=== PATIENT | female | born 2000 | race Caucasian/White ===

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

== ENCOUNTER 2023-05-08 13:18 | Emergency (ER) | payer MEDICAID, SELFPAY ==
[2023-05-08 13:19] VITALS: BP 129/79; PULSE 64; RESP 18; TEMP 35.1; O2SAT 99
[2023-05-08 13:58] VITALS: BMI 33.9
--- NOTE | 2023-05-08 14:35 | US_ITS ---
STUDY: FIRST TRIMESTER OBSTETRICAL ULTRASOUND REASON FOR EXAM: Female, 22 years old spotting, 7-8 weeks by history LMP: 03/15/2023 TECHNIQUE: Transvaginal TECHNICAL QUALITY: Adequate. PRIOR ULTRASOUND: None. FINDINGS: There is visualization of a single gestational sac in a normal intrauterine position. The mean sac diameter (MSD) measures 0.9 cm, indicating an estimated gestational age (EGA) of 5 weeks, 5 days. The gestational sac shape is within normal limits. There is a visualized yolk sac. The yolk sac measures 3 mm. The placenta is non-visualized. There is no demonstrated embryo ( pole). The estimated gestation age (EGA) by LMP is 7 weeks, 5 days. The estimated date of delivery (MORTEZA) by LMP is 12/20/2023. The estimated gestation age (EGA) by US is 5 weeks, 5 days. The estimated date of delivery (MORTEZA) by US is 01/23/2024. The uterus measures 8.7 x 5.4 x 4.4 cm. There is no demonstrated uterine fibroid. The cervix is closed. The right ovary measures 2.6 x 2.3 x 3.3 cm. There is no right ovarian cyst. There is no visualized right adnexal mass or complex lesion. The left ovary measures 1.4 x 2.1 x 2.9 cm. There is no left ovarian cyst. There is no visualized left adnexal mass or complex lesion. There is no fluid in the cul de sac. US/Transvaginal w/Preg US IMPRESSION: Findings consistent with very early intrauterine gestation or blighted ovum. Viability is not established. Suggest short interval follow-up. Electronically Signed: Hawk Ambrocio MD at 17:22 EDT ,
--- NOTE | 2023-05-08 14:37 | EDS_ITS ---
HPI HPI - Female History of Present Illness Chief Complaint: Vag Bld, Preg Informant: patient Narrative Narrative: Patient presents with vaginal bleeding. Patient is G2, P1 female estimated 7 to 8 weeks with last menstrual cycle somewhere in the last 10 days or 2 weeks of February. She had spotting yesterday morning. This morning she had intercourse. She had slightly heavier spotting afterwards. She states she had a slightly pink blood on a tissue. No gross bleeding or clots. No cramping or pain. No back pain. No nausea vomiting. No fevers chills. No dysuria. She is currently on no meds including no anticoagulation. Of note, I reviewed her online medical record and she had an blood type that was O+ on July 05, 2020. [facility] Medical History Accidental fall from building ADHD Anxiety History of pancreatitis MRSA (methicillin resistant Staphylococcus aureus) Umbilical hernia Vaginal delivery Allergy/AdvReac Type Severity Reaction Status Date / Time No Known Allergies Allergy Verified 10/25/21 10:40 Social History current occupational status: employed current occupation: [employer] pets and animals: Yes sexually active: Yes Smoking Status: Never smoker second hand exposure: Yes alcohol intake: current details: not while substance use type: marijuana seatbelt use: sometimes additional social history: Aria [employer]OTE unemployed ([facility]) ROS ROS ED ROS Narrative A complete review of systems was performed and is negative except as documented in the history of present illness. Some specific details below. Constitutional: No recent fevers or chills. EYE: No visual complaints or pain. ENT: No difficulty swallowing. No swelling. No pain. CV: No chest pain or palpitations. Respiratory: No dyspnea. No hemoptysis. No difficulty taking breaths. GI: No nausea vomiting diarrhea or change in bowel habits. : See history of present illness. No frequency dysuria or hematuria. Musculoskeletal: No recent trauma. No pains. Skin: No rash. Nondiaphoretic. Neuro: No weakness or numbness. Endocrine: No polyuria or polydipsia. EXAM Physical Exam Narrative Exam Narrative: CONSTITUTIONAL: Patient is nontoxic in appearance. The patient looks comfortable. HEENT: No notable trauma. Mucous membranes moist. EYES: No conjunctival injection. No pallor. CARDIOVASCULAR: Regular rate. Regular rhythm. No notable murmur. No JVD. RESPIRATORY: No respiratory distress. Breathing is unlabored. No wheezes. No rhonchi. No rales. No pain with a deep breath. GASTROINTESTINAL: Not distended. Bowel sounds are normal. No tenderness. No guarding. No rebound. No palpable mass. GENITOURINARY: No tenderness over the bladder. No CVA tenderness. She states the bleeding is not going on now. MUSCULOSKELETAL: Atraumatic. No peripheral edema. No cord. No tenderness along the deep venous system. No asymmetry. NEUROLOGICAL: Patient is alert and appropriate. No focal deficit noted. SKIN: No noted rashes. No diaphoresis. No pallor. No petechiae. PSYCHIATRIC: Patient is calm. Mood is appropriate. Const Vital Signs: 05/08/23 13:19 Temperature 95.2 F L Temperature Source Temporal Pulse Rate 64 Respiratory Rate 18 Blood Pressure 129/79 H Blood Pressure Mean 95 Pulse Ox 99 Oxygen Delivery Method Room Air MDM MDM MDM Narrative Medical decision making narrative: Patient CBC shows minimal elevation of white count at 12.1 but normal hemoglobin and platelets. Patient's electrolytes are normal. Patient's quantitative hCG is 3918. Patient's urinalysis shows no sign of infection. I did not repeat her blood type as we have this as previously reported on this chart. I discussed the ultrasound with the tech. We are having problems with our radiology system and at this time. But the tech stated that there is a intrauterine sac but there is no pole so this is either a very early gestation or could be blighted ovum. I explained the above issues to the patient. She is not having further bleeding. She has an appointment on 16 days. I explained she should keep this. If she has pain, heavier bleeding, lightheadedness or any other concerns she should return. Lab Data Labs: Laboratory Results - last 24 hr 05/08/23 05/08/23 05/08/23 14:41 14:41 14:41 WBC 12.1 H RBC 4.61 Hgb 12.9 Hct 40.1 MCV 87.0 MCH 28.0 MCHC 32.2 RDW Std Deviation 41.8 RDW Coeff of Omar 13.2 Plt Count 396 MPV 9.7 Immature Gran % (Auto) 0.300 Neut % (Auto) 70.2 H Lymph % (Auto) 19.3 [place] % (Auto) 8.8 Eos % (Auto) 1.0 Baso % (Auto) 0.4 Absolute Neuts (auto) 8.5 H Absolute Lymphs (auto) 2.33 Nucleated RBC % 0 Sodium 138 Potassium 3.9 Chloride 110 H Carbon Dioxide 23.0 Anion Gap 5 BUN 7 Creatinine 0.57 Estim Creat Clear Calc 147.38 Est GFR (MDRD) Af Amer 174 Est GFR (MDRD) Non-Af 144 BUN/Creatinine Ratio 12.4 Glucose 90 Calcium 9.0 HCG, Quant 3918 H Urine Color Urine Clarity Urine pH Ur Specific [place] Urine Protein Urine Glucose (UA) Urine Ketones Urine Occult Blood Urine Nitrite Urine Bilirubin Urine Urobilinogen Ur Leukocyte Esterase Urine RBC Urine WBC Ur Squamous Epith Cells Urine Bacteria Urine Mucus 05/08/23 14:41 WBC RBC Hgb Hct MCV MCH MCHC RDW Std Deviation RDW Coeff of Omar Plt Count MPV Immature Gran % (Auto) Neut % (Auto) Lymph % (Auto) [place] % (Auto) Eos % (Auto) Baso % (Auto) Absolute Neuts (auto) Absolute Lymphs (auto) Nucleated RBC % Sodium Potassium Chloride Carbon Dioxide Anion Gap BUN Creatinine Estim Creat Clear Calc Est GFR (MDRD) Af Amer Est GFR (MDRD) Non-Af BUN/Creatinine Ratio Glucose Calcium HCG, Quant Urine Color Yellow Urine Clarity Clear Urine pH 7.0 Ur Specific [place] 1.010 Urine Protein 15 H Urine Glucose (UA) Normal Urine Ketones Negative Urine Occult Blood 50 H Urine Nitrite Negative Urine Bilirubin Negative Urine Urobilinogen Normal Ur Leukocyte Esterase Negative Urine RBC 0-5 SEEN Urine WBC 0 SEEN Ur Squamous Epith Cells 0-5 SEEN Urine Bacteria RARE Urine Mucus 0 SEEN Discharge Plan Triage Chief Complaint: Vag Bld, Preg ED Provider: Norris Fernandez Dx/Rx/DC Orders Clinical Impression: First trimester bleeding Primary Care Provider: Care Physician,No Primary Referrals: Avni Stoll MD [Non-Staff] - Activity Restrictions/Additional Instructions: Follow-up with your hoe runner as scheduled on the of this month. Disposition Disposition: Home, Self Care
[2023-05-08 14:55] LABS: Mucous, Urine 0 SEEN /hpf (<or=2+); White Blood Cells 0 SEEN /hpf (0-5)
[2023-05-08 14:57] LABS: Color, Urine Yellow (Yellow); Glucose, Dipstick Normal (Normal); Ketone-Dipstick Negative (Negative); Leukocyte Esterase-Dipstick Negative /ul (Negative); Nitrite-Dipstick Negative (Negative); Occult Blood-Urine 50 /ul (Negative); Protein-Dipstick 15 mg/dl (Negative); Urine Bilirubin Dipstick Negative (Negative); Urine Clarity Clear (Clear); Urine Urobilinogen Normal (Normal)
[2023-05-08 14:58] LABS: Absolute Lymphocyte Count 2.33 X10^3/uL (0.83-4.51); Absolute Neutrophil Count 8.5 X10^3/uL (2.0-7.7); Basophil# 0.05 X10^3/uL; Basophil% 0.4 % (0-1); Eosinophil# 0.12 X10^3/uL; Hematocrit 40.1 % (37-47); Hemoglobin 12.9 g/dL (12.0-15.0); Lymphocyte # 2.33 X10^3/ul (0.83-4.51); Lymphocyte % 19.3 % (19-41); Mean Corp Hgb Conc 32.2 g/dL (32-36); Mean Platelet Vol. 9.7 fl (6.2-12.0); Monocyte# 1.06 X10^3/uL; Monocyte% 8.8 % (0-10); NRBC Flagged by Analyzer 0 % (0-5); Neutrophil % 70.2 % (47-70); Platelet Count 396 K/mm3 (150-450); RBC Distribution Width CV 13.2 % (11.6-14.6); RBC Distribution Width SD 41.8 fl (35.1-43.9); Red Blood Count 4.61 M/mm3 (4.2-5.4); White Blood Count 12.1 K/mm3 (4.4-11.0)
[2023-05-08 15:04] LABS: Bacteria RARE /hpf (None Seen); Red Blood Cells-Urine 0-5 SEEN /hpf (0-5); Squamous Epithelial Cells - UA 0-5 SEEN /hpf (5-10)
[2023-05-08 15:09] LABS: Anion Gap 5 (5-15); BUN 7 mg/dL (7-18); BUN/Creat Ratio 12.4 RATIO (10-20); Chloride 110 mmol/L (98-107); Creatinine, Serum 0.57 mg/dL (0.55-1.02); EST Glomerular Filtration Rate 144 mL/min (>60); Est Glom Filt Rate - Afr Amer 174 mL/min (>60); Estimated Creatinine Clearance 147.38 ml/min; Glucose 90 mg/dL (74-106); Potassium 3.9 mmol/L (3.5-5.1); Sodium Level 138 mmol/L (136-145)
[2023-05-08 15:40] LABS: hCG Titer Quant., Serum 3918 mIU/mL (1-3)
== END 2023-05-08 17:09 | disposition home or self-care (01) ==
PROVIDERS: Emergency Provider Emergency Medicine; Visit Provider Emergency Medicine
DX: O20.9 Hemorrhage in early pregnancy, unspecified (principal); Z3A.00 Weeks of gestation of pregnancy not specified
CPT/HCPCS: 76817; 80048; 81001; 84702; 85025; 99282

== ENCOUNTER → 2023-05-21 | Outpatient (CLI) | payer MEDICAID, SELFPAY ==
--- NOTE | 2023-05-21 18:20 | US_ITS ---
STUDY: FIRST TRIMESTER OBSTETRICAL ULTRASOUND REASON FOR EXAM: Female, 22 years old. Bleeding. Threatened . LMP: March 15, 2023. TECHNIQUE: Transvaginal TECHNICAL QUALITY: Adequate. PRIOR ULTRASOUND: May 08, 2023. FINDINGS: There is visualization of a single gestational sac in a normal intrauterine position. The mean sac diameter (MSD) measures 2.52 cm, indicating an estimated gestational age (EGA) of 7 weeks, 4 days. The gestational sac shape is within normal limits. There is a visualized yolk sac. The yolk sac measures 0.48 cm. The placenta is non-visualized. There is visualization of an embryo within the gestational sac.. The crown-rump length (CRL) measures 0.79, indicating an estimated gestational age (EGA) of 6 weeks, 6 days. There is no demonstrated cardiac activity, suggestive of demise The estimated gestation age (EGA) by LMP is 9 weeks, 4 days. The estimated date of delivery (MORTEZA) by LMP is December 20, 2023. The estimated gestation age (EGA) by US is 7 weeks, 2 days. The estimated date of delivery (MORTEZA) by US is January 05, 2024. The uterus measures 10.6 x 7.5 x 5.2 cm. There is a heterogenous area below the gestational sac measuring 2.9 x 2.9 x 1.5 cm. Question subchorionic hemorrhage. There is no demonstrated uterine fibroid. The cervix is closed. The right ovary measures 3.3 x 1.7 x 1.3 cm. There is no right ovarian cyst. There is no visualized right adnexal mass or complex lesion. Normal vascularity on Doppler imaging. The left ovary measures 3.2 x 2.2 x 2.1 cm. There is a 1.3 x 1.8 x 1.1 cm complex cyst. There is no visualized left adnexal mass or complex lesion. Normal vascularity and Doppler imaging. There is no fluid in the cul de sac. US/Transvaginal w/Preg US IMPRESSION: 1. Findings suggestive of demise at 7 weeks, 2 days. There is no evidence of heart tones. 2. Subchorionic hemorrhage in the lower uterine segment. 3. Question left corpus luteum cyst. Preliminary report was given to Ro Girard CNM by the hull grinder. Electronically Signed: Sylvester Sanderson DO at 19:29 EDT Reading Location ID and State: [facility] / [place] Tel [phone], Service support ,
== END | disposition home or self-care (01) ==
LOC: US 18:20
PROVIDERS: Visit Provider Registered Nurse
DX: O20.0 Threatened abortion (principal); Z3A.00 Weeks of gestation of pregnancy not specified
CPT/HCPCS: 76817

== ENCOUNTER 2023-05-25 07:42 | Day surgery (SDC) | payer MEDICAID, SELFPAY ==
--- NOTE | 2023-05-25 | POC_PTH ---
PATIENT: ANDRIY BURR [place] [facility] [id number] AGE/SX: 22/F ROOM: RE05/25/[address]: Dr. Luci Arreguin MD : 2000 BED: DIS: 05/25/2023 SPEC #: [id number] RECD: 05/25/23 12:20 STATUS: JULIO REMariano #: [id number] JAMAL: 05/25/23 00:[address]: Luci Arreguin DEPT: SURGICAL PATHOLOGY RECD BY: uLkas Schulz ENTERED: 05/25/23 12:20 SP TYPE: PROD CONC OTHR DR: No Primary Care Phys Tissues: Product of conception, NOS Procedures: Surgery Specimen Level IV HEADER OPERATION: Suction dilation and curettage PRE-OP DIAGNOSIS: Missed TISSUE SUBMITTED: Products of conception MICROSCOPIC DIAGNOSIS Endometrium, curettage: Chorionic villi, decidualized stroma and trophoblastic cells consistent with products of conception. AM:greg 05/28/2023 MICROSCOPIC DESCRIPTION Slides are reviewed. GROSS DESCRIPTION Received in fixative is one container labeled with the patient's name and designated products of conception. The specimen consists of multiple irregular fragments of pink-pruett soft tissue that in aggregate measure 10.9 x 8.0 x 0.6 cm. parts are not grossly recognized. Inside Account Executive portions are submitted in one cassette. / AM:greg 05/25/2023 TC:5 CPT: 62897
[2023-05-25] MEDS: Lactated Ringers 1,000 ML 15 ML IV (08:24)
[2023-05-25 08:25] VITALS: BP 126/77; PULSE 73; RESP 18; TEMP 36.7; O2SAT 100; BMI 34.0
[2023-05-25] MEDS: Doxycycline 100 MG CAPSULE PO (08:25)
[2023-05-25 08:30] LABS: Absolute Lymphocyte Count 2.35 X10^3/uL (0.83-4.51); Absolute Neutrophil Count 10.4 X10^3/uL (2.0-7.7); Basophil# 0.04 X10^3/uL; Basophil% 0.3 % (0-1); Eosinophil# 0.13 X10^3/uL; Eosinophils% 0.9 % (0-5); Hemoglobin 12.2 g/dL (12.0-15.0); Lymphocyte # 2.35 X10^3/ul (0.83-4.51); Lymphocyte % 16.8 % (19-41); Mean Corpuscular Volume 84.9 fL (81-99); Mean Platelet Vol. 9.5 fl (6.2-12.0); Monocyte# 0.99 X10^3/uL; Monocyte% 7.1 % (0-10); NRBC Flagged by Analyzer 0 % (0-5); Neutrophil # 10.41 X10^3/uL (2.7-7.7); Neutrophil % 74.5 % (47-70); Platelet Count 393 K/mm3 (150-450); RBC Distribution Width CV 13.2 % (11.6-14.6); RBC Distribution Width SD 40.5 fl (35.1-43.9); Red Blood Count 4.36 M/mm3 (4.2-5.4)
--- NOTE | 2023-05-25 09:59 | PCM.HP.STD ---
HPI - General HPI Narrative ANDRIY BURR, is a 22 F who presents for suction d and c with incomplete miscarriage, bleeding and no FHT seen x 2 ultrasound. [facility] Medical History (Updated 05/25/23 @ 10:[address] Luci Arreguin MD) Accidental fall from building ADHD Anxiety Broken teeth Depression History of pancreatitis Marijuana use MRSA (methicillin resistant Staphylococcus aureus) Non-smoker Umbilical hernia Vaginal delivery Home Medications NK 05/22/23 [History Last Taken Unknown] Allergy/AdvReac Type Severity Reaction Status Date / Time No Known Allergies Allergy Verified 05/23/23 08:16 Social History current occupational status: employed current occupation: [employer] pets and animals: Yes sexually active: Yes Smoking Status: Never smoker second hand exposure: Yes alcohol intake: current details: not while substance use type: marijuana seatbelt use: sometimes additional social history: [place]- BF unemployed ([place]) ROS Constitutional Constitutional: Reports systems reviewed and no addt'l complaints, except as documented; Denies as per HPI, change in weight, fatigue, fever(s), malaise, weakness or other Eyes Eyes: Reports systems reviewed and no addt'l complaints, except as documented; Denies as per HPI, change in vision or other ENT HEENT: Reports systems reviewed and no addt'l complaints, except as documented Respiratory/Chest Respiratory/Chest: Reports systems reviewed and no addt'l complaints, except as documented Gastrointestinal Gastrointestinal: Reports systems reviewed and no addt'l complaints, except as documented and as per HPI Genitourinary Genitourinary: Reports as per HPI Musculoskeletal Musculoskeletal: Reports systems reviewed and no addt'l complaints, except as documented Neurologic Neurologic: Reports systems reviewed and no addt'l complaints, except as documented Psychiatric Psychiatric: Reports systems reviewed and no addt'l complaints, except as documented Endocrine Endocrinology: Reports systems reviewed and no addt'l complaints, except as documented Hematologic/Lymphatic Hematologic/Lymphatic: Reports systems reviewed and no addt'l complaints, except as documented Vital Signs Vital Signs Vital Signs: 05/25/23 08:25 05/25/23 08:25 Temperature 98.1 F Temperature Source Temporal Pulse Rate 73 Respiratory Rate 18 Respiratory Pattern Normal Blood Pressure 126/77 H Blood Pressure Mean 93 Blood Pressure Source Monitor Blood Pressure Position Semi-Fowlers Blood Pressure Location Right Arm Pulse Ox 100 Oxygen Delivery Method Room Air Weight Weight: 211 lb Body Mass Index (BMI) 34.0 Physical Exam Const alert, oriented x3 and no apparent distress HEENT normocephalic Head and Scalp: atraumatic Eyes EOMs intact bilaterally and conjunctivae normal Neck full ROM, no lymphadenopathy, supple and thyroid normal General: trachea midline Lymph Lymphatic: no lymphadenopathy noted Resp normal respiratory effort, no retractions, no use of accessory muscles and clear to auscultation bilaterally Cardio regular rhythm GI normal to inspection, nondistended, normoactive bowel sounds, soft to palpation, non-distended and no masses Inspection: Negative for abdominal distention Back/Spine no CVA tenderness Extremity normal to inspection Skin no rashes or lesions noted Neuro moves all extremities and deep tendon reflexes 2+ bilaterally Psych mental status grossly normal Results Lab / Micro Data 05/25/23 08:15 Labs: Laboratory Results - last 24 hr 05/25/23 08:15: WBC 14.0 H, RBC 4.36, Hgb 12.2, Hct 37.0, MCV 84.9, MCH 28.0, MCHC 33.0, RDW Std Deviation 40.5, RDW Coeff of Omar 13.2, Plt Count 393, MPV 9.5, Immature Gran % (Auto) 0.400, Neut % (Auto) 74.5 H, Lymph % (Auto) 16.8 L, [place] % (Auto) 7.1, Eos % (Auto) 0.9, Baso % (Auto) 0.3, Absolute Neuts (auto) 10.4 H, Absolute Lymphs (auto) 2.35, Nucleated RBC % 0, Blood Type O POSITIVE, Antibody Screen NEGATIVE Assessment & Plan Assessment/Plan (1) Incomplete : PLAN: Plan After discussing the patient's diagnosis and treatment plan options, patient wishes to proceed with surgical management. I have discussed with the patient the risks, benefits, and alternatives of the procedure which include but are not limited to risks of anesthesia, bleeding, infection, possible damage to bowel, bladder, or surrounding vasculature which could lead to additional surgery to evaluate any complications. Patient agrees to procedure and wishes to proceed. ACOG/uptodate references given for additional information regarding procedure.
--- NOTE | 2023-05-25 10:10 | OP.PCM_ITS ---
Problems Associated Problem List Diagnoses (1) Incomplete : Report of Operation Date of Procedure: 05/25/23 Pre-Operative Diagnosis: see problem list Post-Operative Diagnosis: same Surgery/Procedure Performed:: Suction dilation and curettage Description of Surgical Findings:: no FHT present, Nonviable 9 weeks measuring 6-7 weeks Surgeon: Luci Arreguin manager student services: None Type of Anesthesia: Local MAC Special Medications: none Specimen's removed: POC Drains: none Estimated Blood Loss (mL): 50 Fluids Replaced: crystalloid Description of Procedure: Patient was taken to the operating room and placed under MAC local anesthesia. She was prepped and draped in the normal sterile fashion the dorsal lithotomy position. Bladder was drained of clear urine and anterior lip of the cervix was grasped and the uterus sounded to 10cm. Cervix was progressively dilated to allow passage of a 10mm suction curette. Progressive passes were made removing the retained products of conception without complication. Sharp curettage confirmed complete removal of the retained products. All instruments were removed from the vagina and excellent hemostasis was noted and the patient was taken to recovery in stable condition. Grafts/Implants Used: none Complications none Admit VTE Documentation VTE Present on Admission: No VTE Mechan Device Prophylaxis: SCD's Procedures Urinary/Genital [id number]: [id number] Trmt of incomplete Ab, any TM
--- NOTE | 2023-05-25 10:11 | DCINST_ITS ---
Discharge Instructions Procedure D&C Diet Discharge Diet: No restrictions Activity Discharge Activity: Return to Normal Activity, May Shower and May Take a Tub Bath (after 1 week) May resume sexual activity in: 1-2 weeks Weight Bearing Status: Weight bearing as tolerated Lifting Restrictions: none Dressing / Incision Call your doctor if you observe: Fever of 101 or Higher, Using more than 1 pad per hour, Shortness of breath and Uncontrolled pain Follow Up Care Please Follow Up With: Luci Arreguin MD When: Call [phone] to schedule appointment. Test Results: Test results from this visit will be discussed in further detail at your follow- up appointment, if applicable. Discharge Plan Admission Attending Provider: Luci Arreguin Primary Care Provider: Care Physician,No Primary Discharge Orders/Prescriptions Prescriptions: No Action NK Referrals / Follow Up: Care Physician,No Primary [Primary Care Provider] - Disposition Disposition (needs filled in before D/C Order can be placed): Home, Self Care
[2023-05-25] MEDS: Lidocaine 1% (20 ml mdv) 20 ML Vial (10:13)
[2023-05-25 10:34] VITALS: BP 120/65; BP 126/77; PULSE 58; RESP 20; TEMP 36.6; O2SAT 98
[2023-05-25 10:40] VITALS: BP 113/54; BP 126/77; PULSE 50; RESP 16; O2SAT 97
[2023-05-25 10:50] VITALS: BP 113/60; BP 126/77; PULSE 49; RESP 16; O2SAT 95
[2023-05-25 10:55] VITALS: BP 126/77; BP 95/75; PULSE 49; RESP 16; TEMP 36.4; O2SAT 99
[2023-05-25 12:08] VITALS: BP 119/54; BP 126/77; PULSE 60; RESP 16; TEMP 36.8; O2SAT 98
== END 2023-05-25 12:10 | disposition home or self-care (01) ==
LOC: SDC 07:44 → AC 07:44
PROVIDERS: Referring Provider Obstetrics & Gynecology; Visit Provider Obstetrics & Gynecology
PROC: (CPT 59812; principal; 2023-05-25 09:05)
DX: O03.4 Incomplete spontaneous abortion without complication (principal); O99.321 Drug use complicating pregnancy, first trimester; F12.90 Cannabis use, unspecified, uncomplicated
CPT/HCPCS: 59812; 01965; 85025; 86850; 86900; 86901; 88305; J7120; J2405

== ENCOUNTER → 2023-06-11 | Outpatient (CLI) | payer MEDICAID, SELFPAY | END | disposition home or self-care (01) | LOC: LABSPEC 14:00 | PROVIDERS: Referring Provider Nurse Practitioner Women's Health; Visit Provider Nurse Practitioner Women's Health | DX: Z20.2 Contact with and (suspected) exposure to infections with a predominantly sexual mode of transmission (principal) | CPT/HCPCS: 87491; 87591 ==

== ENCOUNTER → 2023-12-19 | Outpatient (CLI) | payer MEDICAID, SELFPAY ==
--- OUTSIDE RECORDS SUMMARY | 2023-12-19 15:26 | XMS RPT_ITS | CCD ---
Author Name Unknown Address [address] [place] [address] Organization [facility] Care Team Providers Care Cardiology Rn Name Role Phone VIDHYA QUESADA Unavailable Unavailable CALVIN BARDALES Unavailable CALVIN BARDALES Primary Care UnavailCalvin Garcia MD Primary Care Provider Medications Current Medications Medication Drug Class(es) Dates Sig (Normalized) Sig (Original) amoxicillin 875 mg / clavulanate 125 mg oral tablet (1 source) Penicillin-class Antibacterial Start: 10-01-2023 End: 10-08-2023 take 1 tablet by mouth twice daily amoxicillin-clav ulanate potassium (AUGMENTIN) 875-125 mg per tablet Take 1 tablet by mouth two times a day for 7 days. 14 tablet 0 10/01/2023 10/08/2023 Active Completed/Discontinued Medications Medication Drug Class(es) Dates Sig (Normalized) Sig (Original) sulfamethoxazole 40 mg/ml / trimethoprim 8 mg/ml oral suspension (1 source) Dihydrofolate Reductase Inhibitor Antibacterial, Sulfonamide Antimicrobial Start: 06-07-2015 sulfamethoxazole -trimethoprim (BACTRIM,SEPTRA) 200-40 mg/5 mL suspension Take 4 tsp twice daily for 10 days 400 mL 0 06/07/2015 Active Problems Problem Classification Problem Date Documented Da te Episodic/Chronic Disorders of teeth and jaw (1 source) Infection of tooth; Translations: [Periapical abscess without sinus] 10-01-2023 Episodic Results Test Name Value Interpretation Reference Range Facil ity Vital Signs Date Time Vital Sign Value Performing Clinician Faci lity 10-01-2023 17:43-0500 Body temperature 97.9 [degF] Jayson Powers ACTIVITY COORDINATOR.MEDICAL BILLER Work Phone: [facility] 10-01-2023 17:43-0500 Body weight 91.54 kg Jayson Gio ACTIVITY COORDINATOR.MEDICAL BILLER Work Phone: [facility] 10-01-2023 17:43-0500 Diastolic blood pressure 72 mm[Hg] Jayson Gio ACTIVITY COORDINATOR.MEDICAL BILLER Work Phone: [facility] 10-01-2023 17:43-0500 Heart rate 92 /min Jayson Gio ACTIVITY COORDINATOR.MEDICAL BILLER Work Phone: [facility] 10-01-2023 17:43-0500 Respiratory rate 21 /min Jayson Pendleisa ACTIVITY COORDINATOR.MEDICAL BILLER Work Phone: [facility] 10-01-2023 17:43-0500 SaO2% (BldA) [Mass fraction] 99 % Jayson Powers ACTIVITY COORDINATOR.MEDICAL BILLER Work Phone: [facility] 10-01-2023 17:43-0500 Systolic blood pressure 110 mm[Hg] Jayson Gio ACTIVITY COORDINATOR.MEDICAL BILLER Work Phone: [facility] Encounters Encounter Date Encounter Type Care Provider Facility Start: 10-01-2023 End: 10-01-2023 ambulatory CALVIN GRAHAMCIALES Facility:[facility] Start: 10-01-2023 End: 10-01-2023 Office outpatient visit 25 minutes Jayson Powers ACTIVITY COORDINATOR.MEDICAL BILLER Work Phone: [facility] Plan of Treatment Date Care Activity Detail Author Start: 04-02-2030 Urine microalbumin profile DTa P,Tdap,Td Vaccine (10 - Td or Tdap) [facility] Start: 2023 Pap Testing Pap Testing [facility] Start: 07-27-2023 Influenza vaccination Influenza Vacc ine (#1) [facility] Start: 11-26-2022 Depression Assessment Depression Ass essment [facility] Start: 2020 Chlamydia Screening (18-24) Chlamydia Screening (18-24) [facility] Start: 2020 GC (Gonorrhea) Scree cesia (18-24) GC (Gonorrhea) Screening (18-24) [facility] Start: 2020 Hepatitis C Screening Hepatitis C Nile gonzalez [facility] Start: 2020 HIV Screening HIV Screening [facility] Start: 2018 Meningococcal B Vacc ine: Consider Based On Risk (1 of 2 - Patient Seeks Protection) Meningococcal B Vaccine: Consider Based On Risk (1 of 2 - Patient Seeks Protection) [facility] Start: 2016 Peds To Adult Transi tion Annual Assessment Peds To Adult Transition Annual Assessment [facility] Start: 01-26-2016 HPV Vaccine (2 - 2-d ose series) HPV Vaccine (2 - 2-dose series) [facility] Start: 2014 Peds To Adult Transi tion Initial Discussion Peds To Adult Transition Initial Discussion [facility] Start: 03-29-2003 Covid-19 Vaccine (#1) Covid-19 Vacci ne (#1) [facility] Immunizations Immunization Date Immunization Notes Care Provider Cande giron 08-07-2011 influenza virus vaccine, unspecified formulation Jayson Powers ACTIVITY COORDINATOR.MEDICAL BILLER Work Phone: [facility] Payers Date Payer Category Payer Medicaid [employer] [employer] [place] [employer] [id number] 2022-Present [phone] [address] [place] [address] Medicaid [id number] 2018 Unknown [id number] Social History Date Type Detail Facility Start: 10-01-2023 Tobacco smoking stat NHIS Never smoked tobacco [facility] History of tobacco use Passive smoker [facility] Start: 10-01-2023 Tobacco use and exposure Smoke less tobacco non-user [facility] Start: 10-01-2023 Alcohol intake Not Asked [facility] Start: 11-03-2020 End: 10-01-2023 History of Social function [facility] Start: 11-03-2020 End: 10-01-2023 Tobacco use panel [facility] National Score (1-10 0), lower number is lower risk Not on file [facility] Start: 2002 Sex Assigned At Not on file [facility] Progress note 10-01-2023 Note Date & Type Note Facility 10-01-2023 Note HNO ID: [id number] Author: Jayson Powers APRN.GRACIE Service: ? Author Type: Nurse Practitioner Type: Progress Notes Filed: 10/01/2023 6:15 PM Note Text: Subjective HPI Nontoxic-appearing female presents urgent care chief complaint dental pain. Duration of symptoms 2 days. Associated symptoms facial swelling redness. Does develop today. Presents today for evaluation. Concerned about possible dental infection. Use of Motrin for pain management good success. History of dental infections. Denies any facial trauma. Denies any fever body aches chills nausea vomiting abdominal pain headache cough sore throat difficulty and excretion decreased range of motion of neck or jaw trismus pain of floor mouth. Past medical history prescription medication use allergies reviewed. Denies chance of . .Patient presents with: Dental Problem: Possible infection left side of mouth, swollen face x 2 days History reviewed. No pertinent past medical history. History reviewed. No pertinent surgical history. ALLERGIES Patient has no known allergies. MEDICATIONS sulfamethoxazole-trimethoprim (BACTRIM,SEPTRA) 200-40 mg/5 mL suspension Take 4 tsp twice daily for 10 days (Patient not taking: Reported on 06/08/2018 ) History reviewed. No pertinent family history. Social History Tobacco Use Smoking status: Never Passive exposure: Yes Smokeless tobacco: Never BP 110/72 Pulse 92 Temp 36.6 ?C (97.9 ?F) Resp 21 Wt 91.5 kg (201 lb 12.8 oz) LMP 05/15/2018 (LMP Unknown) SpO2 99% Review of Systems Constitutional: Negative for chills, fever and malaise/fatigue. HENT: Negative for congestion, ear discharge, ear pain, sinus pain and sore throat. Eyes: Negative for blurred vision, pain, discharge and redness. Respiratory: Negative for cough, hemoptysis, sputum production, shortness of breath, wheezing and stridor. Cardiovascular: Negative for chest pain. Gastrointestinal: Negative for abdominal pain, diarrhea, nausea and vomiting. Musculoskeletal: Negative for myalgias. Skin: Negative for itching and rash. Neurological: Negative for dizziness and headaches. Objective Physical Exam Constitutional: General: She is not in acute distress. Appearance: She is not toxic-appearing. HENT: Head: Normocephalic. Jaw: Swelling present. No trismus, tenderness or pain on movement. Salivary Glands: Right salivary gland is not diffusely enlarged. Left salivary gland is not diffusely enlarged. Comments: Edema slight hue of erythema noted. No adenopathy noted. No decreased range of motion of neck. No trismus. No remote redness. Nose: Nose normal. Mouth/Throat: Lips: Levering. Dentition: Abnormal dentition. Dental tenderness and dental caries present. No dental abscesses. Pharynx: Uvula midline. No pharyngeal swelling, oropharyngeal exudate, posterior oropharyngeal erythema or uvula swelling. Eyes: Pupils: Pupils are equal, round, and reactive to light. Cardiovascular: Rate and Rhythm: Normal rate. Pulmonary: Effort: Pulmonary effort is normal. No respiratory distress. Musculoskeletal: Cervical back: Normal range of motion. Skin: General: Skin is warm and dry. Neurological: General: No focal deficit present. Mental Status: She is alert. ASSESSMENT/PLAN: 1. Dental infection - ICD9: 522.4, ICD10: K04.7 Patient nontoxic-appearing. Hemodynamically stable. No trismus pain of floor mouth decreased range of motion of neck difficulty handling secretions. No adenopathy noted. Mild erythema noted. Some swelling noted. Low suspicion for deep neck infection. Treat with Augmentin at today's visit. Red flags for prompt ER evaluation discussed. Follow-up with dentist on Sunday as scheduled. Patient was educated on supportive therapies. Patient will follow up with primary care provider as needed. Patient was instructed to immediately proceed to emergency room for any new, worsening, or symptoms lasting longer than anticipated. The patient's clinical presentation is otherwise unremarkable at this time. Based on exam and clinical finding, the patient is stable for discharge. Plan of care was discussed with patient. Patient verbalizes understanding and agrees to plan of care. This note was generated using Polyplus-transfection software. It may contain errors in wording, punctuation, or spelling. Jayson Powers APRN.GRACIE [facility] History of Present illness Narrative 10-01-2023 Jayson Powers APRN.GRACIE - 10/01/2023 5:46 PM EST Note Date & Type Note Facility 10-01-2023 History of Presen t illness Narrative Images from the original note were not included. Subjective HPI Nontoxic-appearing female presents urgent care chief complaint dental pain. Duration of symptoms 2 days. Associated symptoms facial swelling redness. Does develop today. Presents today for evaluation. Concerned about possible dental infection. Use of Motrin for pain management good success. History of dental infections. Denies any facial trauma. Denies any fever body aches chills nausea vomiting abdominal pain headache cough sore throat difficulty and excretion decreased range of motion of neck or jaw trismus pain of floor mouth. Past medical history prescription medication use allergies reviewed. Denies chance of . .Patient presents with: Dental Problem: Possible infection left side of mouth, swollen face x 2 days History reviewed. No pertinent past medical history. History reviewed. No pertinent surgical history. ALLERGIES Patient has no known allergies. MEDICATIONS sulfamethoxazole-trimethoprim (BACTRIM,SEPTRA) 200-40 mg/5 mL suspension Take 4 tsp twice daily for 10 days (Patient not taking: Reported on 06/08/2018 ) History reviewed. No pertinent family history. Social History Tobacco Use Smoking status: Never Passive exposure: Yes Smokeless tobacco: Never BP 110/72 Pulse 92 Temp 36.6 C (97.9 F) Resp 21 Wt 91.5 kg (201 lb 12.8 oz) LMP 05/15/2018 (LMP Unknown) SpO2 99% Review of Systems Constitutional: Negative for chills, fever and malaise/fatigue. HENT: Negative for congestion, ear discharge, ear pain, sinus pain and sore throat. Eyes: Negative for blurred vision, pain, discharge and redness. Respiratory: Negative for cough, hemoptysis, sputum production, shortness of breath, wheezing and stridor. Cardiovascular: Negative for chest pain. Gastrointestinal: Negative for abdominal pain, diarrhea, nausea and vomiting. Musculoskeletal: Negative for myalgias. Skin: Negative for itching and rash. Neurological: Negative for dizziness and headaches. Objective Physical Exam Constitutional: General: She is not in acute distress. Appearance: She is not toxic-appearing. HENT: Head: Normocephalic. Jaw: Swelling present. No trismus, tenderness or pain on movement. Salivary Glands: Right salivary gland is not diffusely enlarged. Left salivary gland is not diffusely enlarged. Comments: Edema slight hue of erythema noted. No adenopathy noted. No decreased range of motion of neck. No trismus. No remote redness. Nose: Nose normal. Mouth/Throat: Lips: Levering. Dentition: Abnormal dentition. Dental tenderness and dental caries present. No dental abscesses. Pharynx: Uvula midline. No pharyngeal swelling, oropharyngeal exudate, posterior oropharyngeal erythema or uvula swelling. Eyes: Pupils: Pupils are equal, round, and reactive to light. Cardiovascular: Rate and Rhythm: Normal rate. Pulmonary: Effort: Pulmonary effort is normal. No respiratory distress. Musculoskeletal: Cervical back: Normal range of motion. Skin: General: Skin is warm and dry. Neurological: General: No focal deficit present. Mental Status: She is alert. ASSESSMENT/PLAN: 1. Dental infection - ICD9: 522.4, ICD10: K04.7 Patient nontoxic-appearing. Hemodynamically stable. No trismus pain of floor mouth decreased range of motion of neck difficulty handling secretions. No adenopathy noted. Mild erythema noted. Some swelling noted. Low suspicion for deep neck infection. Treat with Augmentin at today's visit. Red flags for prompt ER evaluation discussed. Follow-up with dentist on Sunday as scheduled. Patient was educated on supportive therapies. Patient will follow up with primary care provider as needed. Patient was instructed to immediately proceed to emergency room for any new, worsening, or symptoms lasting longer than anticipated. The patient's clinical presentation is otherwise unremarkable at this time. Based on exam and clinical finding, the patient is stable for discharge. Plan of care was discussed with patient. Patient verbalizes understanding and agrees to plan of care. This note was generated using [employer]-transfection software. It may contain errors in wording, punctuation, or spelling. Jayson Powers APRN.GRACIE documented in this encounter [facility] Evaluation note Note Date & Type Note Facility documented in this encounter [facility] Summary Purpose Family History No Family History Records FoundNo Family History Records Found Advance Directives No Advanced Directives Records FoundNo Advanced Directives Records Found Additional Source Comments INFORMATION SOURCE (unrecogn ized section and content) DATE CREATED AUTHOR AUTHOR'S ORGANIZ ATION 10/02/2023 [facility] Source Comments (unrecognize d section and content) In the event this informatio n is protected by the Federal Confidentiality of Alcohol and Drug Abuse Patient Records regulations: The Federal rules restrict any use of the information to criminally investigate or prosecute any alcohol or drug abuse patient.[facility] Reason for Visit (unrecogniz ed section and content) Care Teams (unrecognized sec tion and content) FOR RECORDS PERTAINING TO PATIENTS WHO ARE OR HAVE BEEN ENROLLED IN A CHEMICAL DEPENDENCY/SUBSTANCEABUSE PROGRAM, SOME INFORMATION MAY BE OMITTED. This clinical summary was aggregated from multiple sources. Caution should be exercised in using it in the provision of clinical care. This summary normalizes information from multiple sources, and as a consequence, information in this document may materially change the coding, format and clinical context of patient data. In addition, data may be omitted in some cases. CLINICAL DECISIONS SHOULD BE BASED ON THE PRIMARY CLINICAL RECORDS. [facility] [employer] [facility]. provides no warranty or guarantee of the accuracy or completeness of information in this document.
[2023-12-19 16:48] LABS: HIV - WCH Non-Reactive (Nonreactive); Hepatitis C Antibody Non-Reactive (Nonreactive); Syphilis Antibodies Non-reactive
[2023-12-21 08:10] LABS: HSV 2 IgG < 0.91 index (0.00-0.90)
[2023-12-24 18:53] LABS: HPV Reflexed? NOT INDICATED
[2023-12-25 09:08] LABS: Chlamydia By Nucleic Acid AMP Negative (Negative); Gonococcus By Nucleic Acid AMP Negative (Negative)
== END | disposition home or self-care (01) ==
PROVIDERS: Referring Provider Nurse Practitioner Women's Health; Visit Provider Nurse Practitioner Women's Health
DX: Z20.2 Contact with and (suspected) exposure to infections with a predominantly sexual mode of transmission (principal); Z12.4 Encounter for screening for malignant neoplasm of cervix; Z11.3 Encounter for screening for infections with a predominantly sexual mode of transmission
CPT/HCPCS: 36415; 86695; 86696; 86703; 86780; 86803; 87255; 87491; 87591; 88175; G0145

== ENCOUNTER → 2024-05-16 | Outpatient (CLI) | payer MEDICAID, SELFPAY | END | disposition home or self-care (01) | LOC: LABSPEC 15:31 | PROVIDERS: Referring Provider Nurse Practitioner Family; Visit Provider Nurse Practitioner Family | DX: Z20.2 Contact with and (suspected) exposure to infections with a predominantly sexual mode of transmission (principal) | CPT/HCPCS: 87491; 87591 ==

== ENCOUNTER 2025-02-20 19:38 | Emergency (ER) | payer MEDICAID, SELFPAY ==
[2025-02-20 19:38] VITALS: BP 135/54; PULSE 60; RESP 15; TEMP 36.6; O2SAT 99; BMI 35.3
--- NOTE | 2025-02-20 19:41 | RAD_ITS ---
EXAM: Diagnostic tibia fibula two-view x-ray CLINICAL HISTORY: Pain TECHNIQUE: AP and lateral two views of the left tibia and fibula FINDINGS: No fracture. Suggestion of diffuse pretibial soft tissue swelling on the lateral view. RAD/Tibia & Fibula 2 Views IMPRESSION: No fracture. Suggestion of diffuse pretibial soft tissue swelling on the later al view. Reading Location: [id number]
--- NOTE | 2025-02-20 19:43 | RAD_ITS ---
PROCEDURE: ANKLE MIN 3 VIEWS 02/20/2025 REASON FOR EXAM: PAIN TECHNIQUE: 3 views of the left ankle COMPARISON: 07/10/2019 FINDINGS: No fracture, dislocation or joint effusion. Appearance of lateral ankle soft tissue swelling. Joint spaces appear within limits. RAD/Ankle min 3 Views IMPRESSION: No fracture, dislocation or joint effusion. Appearance of lateral ankle soft t issue swelling. Reading Location: [id number]
--- NOTE | 2025-02-20 20:05 | ED.VIS.LOWEX ---
HPI History of Present Illness Chief Complaint: Lower Extremity Injury Detail of Chief Complaint: Injury to left leg Informant: patient Narrative Narrative: Patient presents to the emergency department with injury to her left leg that occurred 5 days ago. Patient states that she was carrying her boyfriend on her back up a ramp when she came up to some steps and fell forward dropping her boyfriend and hitting her left dumont against the step. Patient was able to ambulate afterwards. She had some soft tissue swelling to the anterior aspect of the dumont. She comes in today because she noticed some bruising down and around the foot as well. She has been ambulatory. [facility] Medical History Incomplete Broken teeth Depression Marijuana use Non-smoker History of pancreatitis Vaginal delivery Anxiety ADHD Umbilical hernia Accidental fall from building MRSA (methicillin resistant Staphylococcus aureus) Home Medications ?Medication ?Instructions ?Recorded ?Last Taken ?Type NK 02/20/25 Unknown History Allergy/AdvReac Type Severity Reaction Status Date / Time No Known Allergies Allergy Verified 02/20/25 19:38 Social History (Updated 05/16/24 @ 13:40 by Jyoti Paredes) current occupational status: employed current occupation: [employer] pets and animals: Yes sexually active: Yes Smoking Status: Current every day smoker tobacco type: e-cigarettes second hand exposure: Yes alcohol intake: current details: not while substance use type: marijuana seatbelt use: sometimes additional social history: Single ROS ROS ED Review of Systems ROS Unobtainable: other Constitutional Constitutional ED: Reports lethargy; Denies chills, fever(s), sweats or weight loss Eyes Eyes: Denies blurry vision, change in vision or diplopia ENT ENT ED: Denies rhinorrhea or sore throat Cardiovascular Cardiovascular: Denies chest pain, orthopnea or racing heartbeat Respiratory/Chest Respiratory/Chest: Denies cough, dyspnea, dyspnea on exertion, orthopnea or sputum Gastrointestinal Gastrointestinal: Denies abdominal pain, diarrhea, nausea or vomiting Genitourinary Genitourinary ED: Denies dysuria, hematuria or urinary frequency Musculoskeletal Musculoskeletal: Reports other Details: Left leg injury ; Denies arthralgias, back pain, myalgias or neck pain Integumentary Denies abscess, Abrasions or rash Neurologic Neurologic: Denies headache(s) or weakness Psychiatric Psychiatric: Denies anxiety, depression or suicidal thoughts Endocrine Endocrinology: Denies polydipsia, polyphagia or polyuria Hematologic/Lymphatic Hematologic/Lymphatic: Denies easy bleeding, easy bruising or lymphadenopathy Allergic/Immunologic Allergic/Immunologic ED: Denies mouth swelling, tongue swelling or urticaria EXAM Physical Exam Const Vital Signs: 02/20/25 19:38 Temperature 97.9 F Temperature Source Temporal Pulse Rate 60 Respiratory Rate 15 Blood Pressure 135/54 H Blood Pressure Mean 81 Pulse Ox 99 Oxygen Delivery Method Room Air Positive well nourished and well developed General Appearance ED: well developed and NAD HEENT Reports TM's clear and moist mucous membranes normocephalic and atraumatic; Negative for trauma or tenderness Tympanic Membrane ED: Yes TM's clear Eyes PERRL and EOMs intact bilaterally General Eye ED: Negative for pale conjunctiva or scleral icterus Neck no lymphadenopathy, supple and no JVD General: Negative for tenderness Chest Wall inspection of chest normal and palpation of chest normal Chest: Negative for tenderness Resp normal respiratory effort and clear to auscultation bilaterally Effort and Inspection: Negative for respiratory distress or pain with movement Auscultation: Negative for rhonchi, wheezes or diminished lung sounds Cardio regular rate, regular rhythm, S1 normal heart sound, S2 normal heart sound and no murmurs Peripheral Pulses: pulses 2+ throughout GI normal to inspection, nondistended, normoactive bowel sounds, soft to palpation, non-tender, non-distended and no masses Back/Spine no CVA tenderness and no thoracic nor lumbar tenderness Extremity Extremity Narrative: Left leg-mid anterior tibia there is an area of some soft tissue swelling and old ecchymosis and bruising noted. There is a superficial abrasion. Mild diffuse tenderness over this area. Patient also some mild tenderness over the lateral malleolus. Inferior to the lateral malleolus there is an area of ecchymosis and bruising. No bony deformity. Neurovascular intact distally. General Extremety ED: Negative for edema General Extremity: Negative for edema Neuro oriented x3, CN's II-XII intact bilaterally, no sensory deficits noted and gait normal Sensorium / Orientation: awake, alert, oriented to person, oriented to place and oriented to time Motor Exam: strength 5/5 throughout and strength abnormal Psych mental status grossly normal Skin no rashes or lesions noted and no wounds MDM MDM MDM Narrative Medical decision making narrative: Patient presents with injury to her left dumont that occurred 5 days ago. X-rays of the left tib-fib and ankle obtained interpreted by myself as no evidence of fracture or dislocation. X-rays were ordered via protocol by nursing staff prior to my evaluating the patient. Patient advised to use ibuprofen or Tylenol for discomfort. Advised to follow-up with primary care physician in 7 to 10 days. Radiography Diagnostic Testing: Clinical Impression(s) from Imaging Studies Ankle X-Ray 02/20/25 19:43 IMPRESSION: No fracture, dislocation or joint effusion. Appearance of lateral ankle soft tissue swelling. Reading Location: [id number] Three-view x-rays of the left ankle obtained interpreted by myself as no evidence of fracture or dislocation. Radiology in agreement. 2 view x-rays of the left tib-fib obtained interpreted by myself as no evidence of fracture or dislocation. Discharge Plan Triage Chief Complaint: Lower Extremity Injury ED Provider: Jess Coker Dx/Rx/DC Orders Clinical Impression: Hematoma, Contusion of left leg Instructions: ED Soft Tissue Contusion, ED Hematoma Prescriptions: No Action NK Primary Care Provider: Care Physician,No Primary Referrals: Bev Stewart DO [Med Staff - Physicist [place]] - 1 Week Care Physician,No Primary [Primary Care Provider] - Print Language: Citizen Of [place] Disposition Disposition: Home, Self Care
[2025-02-20 20:18] VITALS: BP 130/60; PULSE 65; RESP 16; TEMP 36.8; O2SAT 98
== END 2025-02-20 20:19 | disposition home or self-care (01) ==
PROVIDERS: Emergency Provider Emergency Medicine; Visit Provider Emergency Medicine
DX: S80.12XA Contusion of left lower leg, initial encounter (principal); W10.9XXA Fall (on) (from) unspecified stairs and steps, initial encounter; F17.290 Nicotine dependence, other tobacco product, uncomplicated
CPT/HCPCS: 73590; 73610; 99282

== ENCOUNTER → 2025-07-06 | Outpatient (CLI) | payer MEDICAID, SELFPAY ==
[2025-07-06 14:05] LABS: hCG Titer Quant., Serum 362 mIU/mL (<9 non-preg)
--- OUTSIDE RECORDS SUMMARY | 2025-07-06 19:54 | XMS RPT_ITS | CCD ---
Author Organization [facility] Care Team Providers Care Patrol Agent Name Role Phone VIDHYA QUESADA Unavailable Unavailable SIRENA MCNEIL Unavailable Care Physician, No Primary Primary Care Provider Unavailable Care Physician, No Primary Referring Provider Un available Dr. Luci Arreguin Attending Provider Dr. Luci Arreguin Referring Provider [phone] Dr. Luci Arreguin Other Provider [phone] Emily TRUCK RAILROAD [employer] BUS MOTOR MECHANIC, MARIELENA Cormier Attending Provider [phone] Sirena Mcneil MD Primary Care Provider Care Physician, No Primary Primary Care Provider Unavailable Care Physician, No Primary Referring Provider Un available Emily [employer] RA[employer]RO[employer] MOTOR MECHANIC, DAVID-Cruzito Cormier Attending Provider [phone] Sirena Mcneil MD Primary Care Provider Care Physician, No Primary Primary Care Provider Unavailable Dr. Jess Coker DO Emergency Provider Care Physician, No Primary Referring Unava ilable Care Physician, No Primary Primary Care Unava ilable Anyi Ralph Attending Unavailable Care Physician, No Primary Primary Care Unava ilable Anyi Ralph Referring Unavailable Anyi Ralph Attending Unavailable Care Physician, No Primary Primary Care Unava ilable Jess Coker Attending Unavailable Care Physician, No Primary Referring Unava ilable Care Physician, No Primary Primary Care Unava ilable Anyi Ralph Attending Unavailable SIRENA MCNEIL Primary Care Unavailabl e POP ARGUETA Attending Unavailable SIRENA MCNEIL Primary Care Unavailabl e Medications Current Medications Medication Drug Class(es) Dates Sig (Normalized) Sig (Original) amoxicillin 500 mg oral capsule (6 sources) Penicillin-class Antibacterial Start: 12-25-2024 End: 01-04-2025 take 1 capsule by mouth twice daily amoxicillin (AMOXIL) 500 mg capsule Indications: Strep pharyngitis Take 1 capsule by mouth two times a day for 10 days. 20 capsule 12/25/2024 01/04/2025 Active Start: 02-05-2020 End: 02-23-2020 take 1 tablet by mouth three times daily Amoxicillin 500 MG tablet Discontinued 500 mg PO THREE TIMES A DAY February 05, 2020 12:00am February 23, 2020 1:18pm amoxicillin 875 mg / clavulanate 125 mg oral tablet (1 source) Penicillin-class Antibacterial Start: 10-01-2023 End: 10-08-2023 take 1 tablet by mouth twice daily amoxicillin-clavulanate potassium (AUGMENTIN) 875-125 mg per tablet Take 1 tablet by mouth two times a day for 7 days. 14 tablet 0 10/01/2023 10/08/2023 Active Comment on above: Take 1 tablet by mouth two times a day f or 7 days. [place] (Nk) (4 sources) Start: 02-20-2025 [place] (Nk) Active February 20, 2025 12:00am Start: 05-22-2023 [place] (Nk) A ctive May 22, 2023 12:00am sulfamethoxazole 40 mg/ml / trimethoprim 8 mg/ml oral suspension (3 sources) Dihydrofolate Reductase Inhibitor Antibacterial, Sulfonamide Antimicrobial Start: 06-07-2015 sulfamethoxazole-trimethopri m (BACTRIM,SEPTRA) 200-40 mg/5 mL suspension Take 4 tsp twice daily for 10 days 400 mL 0 06/07/2015 Active Comment on above: Take 4 tsp twice imtiaz ly for 10 days Completed/Discontinued Medications Medication Drug Class(es) Dates Sig (Normalized) Sig (Original) azithromycin 500 mg oral tablet (15 sources) Macrolide Antimicrobial Start: 09-08-2020 End: 10-25-2021 take 1 tablet by mouth once Azithromycin (Zithromax) 500 mg tablet Discontinued 1000 mg PO ONCE 2 September 08, 2020 12:00am October 25, 2021 11:40am administer on day 1 of therapy Start: 04-09-2020 End: 04-23-2020 take 1 g by mouth once Azithromycin 1 gram packet D iscontinued 1 g PO ONCE 1 April 09, 2020 12:00April 23, 2020 2:17pm Start: 12-04-2019 End: 01-05-2020 take 1 tablet by mouth once Azithromycin (Zithromax) 5 00 mg tablet Discontinued 1000 mg PO ONCE December 04, 2019 1:00am January 05, 2020 10:16am administer on day 1 of therapy clotrimazole 20 mg/ml vaginal cream (5 sources) Azole Antifungal Start: 04-23-2020 End: 04-30-2020 Clotrimazole 2 % cream Discontinued 1 NMA VAGINAL AT BEDTIME 15 06April 23, 2020 12:00am April 29, 2020 12:00am April 30, 2020 12:02am Start: 04-23-2020 End: 04-30-2020 Clotrimazole Discontinued 1 APPFUL VAGINAL AT BEDTIME 15 06April 22, 2020 11:00pm April 29, 2020 11:02pm doxycycline hyclate 100 mg oral capsule (1 source) Tetracycline-class Drug Start: 05-19-2024 End: 05-26-2024 take 1 capsule by mouth twice daily Doxycycline Hyclate 100 mg capsule Discontinued 100 mg PO TWICE A DAY 14 May 19, 2024 12:00May 25, 2024 12:00am May 26, 2024 12:04am lidocaine 0.04 mg/mg topical gel (5 sources) Antiarrhythmic, Amide Local Anesthetic Start: 04-08-2020 End: 04-23-2020 Lidocaine 4 % gel Discontinued 1 NMA TOPICAL 2 to 4 times per day as needed for pain April 08, 2020 12:00am April 23, 2020 2:17pm metroNIDAZOLE 500 mg oral tablet (12 sources) Nitroimidazole Antimicrobial Start: 12-19-2023 End: 12-26-2023 take 1 tablet by mouth twice daily Metronidazole 500 mg tablet Discontinued 500 mg PO TWICE A DAY 14 December 19, 2023 1:00am December 25, 2023 1:00am December 26, 2023 1:04am Start: 04-02-2020 End: 04-09-2020 take 1 tablet by mouth twice daily Metronidazole (Flagyl) 500 mg tablet Discontinued 500 mg PO TWICE A DAY 14 April 02, 2020 12:00am April 08, 2020 12:00am April 09, 2020 12:02am Start: 12-04-2019 End: 01-05-2020 take 1 tablet by mouth twice daily Metronidazole (Flagyl) 500 mg tablet Discontinued 500 mg PO TWICE A DAY December 04, 2019 1:00am January 05, 2020 10:16am naproxen 250 mg oral tablet (5 sources) Nonsteroidal Anti-inflammatory Drug Start: 07-06-2020 End: 09-01-2020 take 250-500 mg by mouth every eight hours as needed for pain Naproxen 250 MG tablet Discontinued 250 - 500 mg PO EVERY 8 HOURS NEEDED as needed for MILD PAIN July 06, 2020 12:00am September 01, 2020 2:58pm ondansetron 4 mg disintegrating oral tablet (1 source) Serotonin-3 Receptor Antagonist Start: 05-26-2024 End: 02-20-2025 take 1 tablet by mouth every four hours as needed for nausea and vomiting Ondansetron 4 mg tablet,disintegr ating Discontinued 4 mg PO Q4H as needed for nausea and vomiting May 26, 2024 12:00am February 20, 2025 7:58pm Pnv Cmb#95-Ferrous Fumarate-Fa (4 sources) Start: 02-04-2020 End: 10-25-2021 Pnv Cmb#95-Ferrous Fumarate-Fa Discontinued 1 EACH PO DAILY February 03, 2020 11:00pm October 25, 2021 10:40am Start: 02-04-2020 End: 10-25-2021 Pnv Cmb#95-Ferrous Fumarate- Fa Discontinued 1 EACH PO DAILY February 04, 2020 12:00am October 25, 2021 11:40am Pnv Cmb#95-Ferrous Fumarate-Fa 1 EACH tablet (1 source) Start: 02-04-2020 End: 10-25-2021 Pnv Cmb#95-Ferrous Fumarate-Fa 1 EACH tablet Discontinued 1 NMA PO DAILY February 04, 2020 12:00am October 25, 2021 11:40am valACYclovir 1000 mg oral tablet (2 sources) Herpesvirus Nucleoside Analog DNA Polymerase Inhibitor, Herpes Simplex Virus Nucleoside Analog DNA Polymerase Inhibitor, Herpes Zoster Virus Nucleoside Analog DNA Polymerase Inhibitor Start: 12-19-2023 End: 12-29-2023 Valacyclovir 1 gram tablet Discontinued 1000 mg PO TWICE A DAY 14 09December 19, 2023 1:00am December 28, 2023 1:00am December 29, 2023 1:39am Start: 12-19-2023 take 1000 mg by mout h twice daily Valacyclovir Active 1000 MG PO TWICE A DAY 14 09December 19, 2023 12:00am Problems Active Problems Problem Classification Problem Date Documented Date Episodic/Chronic Anxiety disorders (5 sources) Anxiety; Translations: [Anxiety disorder, unspecified] 05-14-2020 Chronic Comment on above: encouraged counselin g. no meds. Attention-deficit, conduct, and disruptive behavior disorders (5 sources) Attention deficit hyperactivity disorder; Translations: [Attention-deficit hyperactivity disorder, unspecified type] 07-05-2020 Chronic Bacterial infection; unspecified site (5 sources) Chlamydial infection; Translations: [Chlamydial infection, unspecified] 12-04-2019 Episodic Contraceptive and procreative management (2 sources) Patient encounter status; Translations: [Encounter for contraceptive management, unspecified] 06-11-2023 Episodic Disorders of teeth and jaw (1 source) Infection of tooth; Translations: [Periapical abscess without sinus] 10-01-2023 Episodic Hemorrhage during ; abruptio placenta; placenta previa (5 sources) Hemorrhage in early , unspecified; Translations: [First trimester bleeding] 05-16-2023 Episodic Open wounds of extremities (5 sources) Laceration of left upper arm; Translations: [Laceration without foreign body of left upper arm, initial encounter] 07-11-2019 Episodic Other aftercare (1 source) Encounter for follow-up examination after completed treatment for conditions other than malignant neoplasm; Translations: [Follow-up examination, following surgery, unspecified] 06-11-2023 Episodic Other complications of (5 sources) Urinary tract infection in ; Translations: [Unspecified infection of urinary tract in , unspecified trimester] 06-03-2020 Episodic Comment on above: 02/03 tx ED' Repeat n egative Other complications of (5 sources) Anomaly of placenta; Translations: [Malformation of placenta, unspecified, unspecified trimester] 06-03-2020 Episodic Comment on above: placental choco frank al growth q4 wks @ 28 wks. Growth US normal on 04/26 Other female genital disorders (1 source) Other specified noninflammatory disorders of vulva and perineum; Translations: [Other specified noninflammatory disorders of vulva and perineum] 12-19-2023 Episodic Other infections; including parasitic (5 sources) History of chlamydial infection; Translations: [Personal history of other infectious and parasitic diseases] 10-25-2021 Episodic Comment on above: 08/2020 Other infections; including parasitic (1 source) Worms in stool; Translations: [Helminthiasis, unspecified] 03-12-2025 Episodic Other infections; including parasitic (1 source) Helminthiasis, unspecified; Translations: [Worms in stool] Onset: 03-12-2025 Episodic Other injuries and conditions due to external causes (1 source) Hematoma; Translations: [Other injury of unspecified body region, initial encounter] 02-20-2025 Episodic Other and delivery including normal (5 sources) Vaginal delivery; Translations: [Encounter for full-term uncomplicated delivery] 09-27-2021 Episodic Other upper respiratory infections (2 sources) Sore throat symptom; Translations: [Acute pharyngitis, unspecified] 12-25-2024 Episodic Pancreatic disorders (not diabetes) (5 sources) Pancreatitis; Translations: [Acute pancreatitis without necrosis or infection, unspecified] 12-04-2019 Episodic Residual codes; unclassified (5 sources) High risk sexual behavior of adolescence; Translations: [High risk heterosexual behavior] 12-04-2019 Episodic Spontaneous (10 sources) with abortive outcome; Translations: [Incomplete spontaneous without complication] 05-25-2023 Episodic Sprains and strains (5 sources) Sprain of ankle; Translations: [Sprain of unspecified ligament of right ankle, initial encounter] 07-11-2019 Episodic Substance-related disorders (5 sources) Cannabis abuse; Translations: [Cannabis abuse, uncomplicated] 09-27-2021 Chronic Comment on above: recommend cessation. Superficial injury; contusion (7 sources) Retained foreign body of eyelid; Translations: [Superficial foreign body of right eyelid and periocular area, initial encounter] Onset: 02-25-2025 04-03-2014 Episodic Past or Other Problems Problem Classification Problem Date Documented Da te Episodic/Chronic Immunizations and screening for infectious disease (9 sources) Requires diphtheria, tetanus and pertussis vaccination; Translations: [Encounter for immunization] Onset: 05-27-2024 07-11-2019 Episodic Results Test Name Value Interpretation Reference Range Facility [facility] 03-12-2025 CNOV Office Visit (WSTR) NEO BURR ([id number]) 4 F Date Time Provider Department 03/12/25 4:45 PM POP ARGUETA [facility] During your visit today, we recorded the following information about you: Temperature Pulse Respiration Blood pressure 98.6 degrees 65/minute 20/minute 121/74 Weight Last Period 99 kg 02/19/25 Pop Argueta MD 03/12/2025 5:11 PM Signed [facility] Subjective Neo Burr is a 24 year old female. Patient presents with: Diarrhea: Pt states she passed a possible worm yesterday after a BM and also passed another one today. X 1 day Last night patient noticed a long white item passed per your rectum which may be a worm. She has had some diarrhea and soft stools. She has had some mid abdominal discomfort. Denies fever, nausea, vomiting, or blood in her stool. She denies any consumption of raw meats. Diarrhea Review of Systems Gastrointestinal: Positive for diarrhea. Objective BP 121/74 Pulse 65 Temp 37 ?C (98.6 ?F) Resp 20 Wt 99 kg (218 lb 4.1 oz) LMP 02/19/2025 (Exact Date) SpO2 98% Physical Exam Constitutional: General: She is not in acute distress. HENT: Right Ear: Tympanic membrane and ear canal normal. Left Ear: Tympanic membrane and ear canal normal. Nose: Right Sinus: No maxillary sinus tenderness or frontal sinus tenderness. Left Sinus: No maxillary sinus tenderness or frontal sinus tenderness. Mouth/Throat: Mouth: Mucous membranes are moist. Eyes: Extraocular Movements: Extraocular movements intact. Conjunctiva/sclera: Conjunctivae normal. Pupils: Pupils are equal, round, and reactive to light. Cardiovascular: Rate and Rhythm: Normal rate and regular rhythm. Heart sounds: No murmur heard. Pulmonary: Effort: No respiratory distress. Breath sounds: No wheezing, rhonchi or rales. Abdominal: General: There is no distension. Palpations: There is no mass. Tenderness: There is no abdominal tenderness. Comments: Photo of commode showing elongated white object which could represent mucus or a worm. Musculoskeletal: Cervical back: Neck supple. Lymphadenopathy: Cervical: No cervical adenopathy. Neurological: Mental Status: She is alert. {ASSESSMENT/PLAN: 1. Worms in stool - ICD9: 128.9, ICD10: B83.9 Will have stool checked for parasites. - OVA + PARA MICROSCOPIC-treat if abnormal. Pop Argueta MD Differential Diagnoses - mucus passed per rectum - tapeworm or ascaris Procedures Allergies As of Date: 03/12/2025 (No Known Allergies) Date Reviewed: 03/12/2025 Reviewed by: Mirna Chambers LPN - Fully Assessed Reason for Visit: Diarrhea [35] Cmt: Pt states she passed a possible worm yesterday after a BM and also passed another one today. X 1 day Primary Visit Diagnosis:Worms in stool [B83.9] Order(s):OVA + PARA MICROSCOPIC [SQOVAP] Order #: [id number]. #:[id number] Prescriptions as of 03/12/2025 - sulfamethoxazole-tri methoprim (BACTRIM,SEPTRA) 200-40 mg/5 mL suspension Take 4 tsp twice daily for 10 days Problem List As Of Date: 03/12/2025 (None) Level of Service: OFFICE/OUTPATIENT ESTABLISHED LOW [facility] 20 MIN [55509] Encounter Status:Closed by POP ARGUETA on 03/12/25 Normal [facility] Ankle min 3 Viewson 02-21-20 Ankle min 3 Views [facility] Imaging Services [address], [place] [id number] Ankle min 3 Views MR#: [id number] Acct: [id number] Name: NEO BURR Prabhu Rep #: [id number] : 2000 F 24 From: Amadou Duran MD PCP: Care Physician,No Primary Status: REG ER Study: Ankle min 3 Views Date of Exam: 02/20/25 Exam# [id number] Ordering Dr: Jess Coker DO PROCEDURE: ANKLE MIN 3 VIEWS 02/20/2025 REASON FOR EXAM: PAIN TECHNIQUE: 3 views of the left ankle COMPARISON: 07/10/2019 FINDINGS: No fracture, dislocation or joint effusion. Appearance of lateral ankle soft tissue swelling. Joint spaces appear within limits. RAD/Ankle min 3 Views IMPRESSION: No fracture, dislocation or joint effusion. Appearance of lateral ankle soft tissue swelling. Reading Location: [id number] CC: Dr. Jess Coker, DO; No Primary Care Physician Wireless Operator: Signed Normal [facility] Emergency Department Summary on 02-20-2025 Emergency Department Summary [facility] Medical Records Department [address] [place] [id number] Emergency Department Summary 02/20/25 MR#: [id number] Acct: [id number] Name: NEO BURR Rep #: [id number] : 2000 24 From: Jess Coker DO PCP: Care Physician,No Primary Status:DEP ER Location: ED HPI History of Present Illness Chief Complaint: Lower Extremity Injury Detail of Chief Complaint: Injury to left leg Informant: patient Narrative Narrative: Patient presents to the emergency department with injury to her left leg that occurred 5 days ago. Patient states that she was carrying her boyfriend on her back up a ramp when she came up to some steps and fell forward dropping her boyfriend and hitting her left dumont against the step. Patient was able to ambulate afterwards. She had some soft tissue swelling to the anterior aspect of the dumont. She comes in today because she noticed some bruising down and around the foot as well. She has been ambulatory. [facility] Medical History Incomplete Broken teeth Depression Marijuana use Non-smoker History of pancreatitis Vaginal delivery Anxiety ADHD Umbilical hernia Accidental fall from building MRSA (methicillin resistant Staphylococcus aureus) Home Medications ???Medication ???Instructions ???Recorded ???Last Taken ???Type NK 02/20/25 Unknown History Allergy/AdvReac Type Severity Reaction Status Date / Time No Known Allergies Allergy Verified 02/20/25 19:38 Social History (Updated 05/16/24 @ 13:40 by Jyoti Pereira current occupational status: employed current occupation: [employer] pets and animals: Yes sexually active: Yes Smoking Status: Current every day smoker tobacco type: e-cigarettes second hand exposure: Yes alcohol intake: current details: not while substance use type: marijuana seatbelt use: sometimes additional social history: Single ROS ROS ED Review of Systems ROS Unobtainable: other Constitutional Constitutional ED: Reports lethargy; Denies chills, fever(s), sweats or weight loss Eyes Eyes: Denies blurry vision, change in vision or diplopia ENT ENT ED: Denies rhinorrhea or sore throat Cardiovascular Cardiovascular: Denies chest pain, orthopnea or racing heartbeat Respiratory/Chest Respiratory/Chest: Denies cough, dyspnea, dyspnea on exertion, orthopnea or sputum Gastrointestinal Gastrointestinal: Denies abdominal pain, diarrhea, nausea or vomiting Genitourinary Genitourinary ED: Denies dysuria, hematuria or urinary frequency Musculoskeletal Musculoskeletal: Reports other Details: Left leg injury ; Denies arthralgias, back pain, myalgias or neck pain Integumentary Denies abscess, Abrasions or rash Neurologic Neurologic: Denies headache(s) or weakness Psychiatric Psychiatric: Denies anxiety, depression or suicidal thoughts Endocrine Endocrinology: Denies polydipsia, polyphagia or polyuria Hematologic/Lymphati c Hematologic/Lymphati c: Denies easy bleeding, easy bruising or lymphadenopathy Allergic/Immunologic Allergic/Immunologic ED: Denies mouth swelling, tongue swelling or urticaria EXAM Physical Exam Const Vital Signs: 02/20/25 19:38 Temperature 97.9 F Temperature Source Temporal Pulse Rate 60 Respiratory Rate 15 Blood Pressure 135/54 H Blood Pressure Mean 81 Pulse Ox 99 Oxygen Delivery Method Room Air Positive well nourished and well developed General Appearance ED: well developed and NAD HEENT Reports TM's clear and moist mucous membranes normocephalic and atraumatic; Negative for trauma or tenderness Tympanic Membrane ED: Yes TM's clear Eyes PERRL and EOMs intact bilaterally General Eye ED: Negative for pale conjunctiva or scleral icterus Neck no lymphadenopathy, supple and no JVD General: Negative for tenderness Chest Wall inspection of chest normal and palpation of chest normal Chest: Negative for tenderness Resp normal respiratory effort and clear to auscultation bilaterally Effort and Inspection: Negative for respiratory distress or pain with movement Auscultation: Negative for rhonchi, wheezes or diminished lung sounds Cardio regular rate, regular rhythm, S1 normal heart sound, S2 normal heart sound and no murmurs Peripheral Pulses: pulses 2+ throughout GI normal to inspection, nondistended, normoactive bowel sounds, soft to palpation, non-tender, non- distended and no masses Back/Spine no CVA tenderness and no thoracic nor lumbar tenderness Extremity Extremity Narrative: Left leg-mid anterior tibia there is an area of some soft tissue swelling and old ecchymosis and bruising noted. There is a superficial abrasion. Mild diffuse tenderness over this area. Patient also some mild tenderness over the lateral mal (more content not included)... Normal [facility] Tibia Fibula 2 Viewson 02-20 Tibia Fibula 2 Views [facility] Imaging Services [address] [place] [address] Tibia Fibula 2 Views MR#: [id number] Acct: [id number] Name: NEO BURR Rep #: [id number] : 2000 F 24 From: Amadou Duran MD PCP: Care Physician,No Primary Status: REG ER Study: Tibia Fibula 2 Views Date of Exam: 02/20/25 Exam# [id number] Ordering Dr: Jess Coker DO EXAM: Diagnostic tibia fibula two-view x-ray CLINICAL HISTORY: Pain TECHNIQUE: AP and lateral two views of the left tibia and fibula FINDINGS: No fracture. Suggestion of diffuse pretibial soft tissue swelling on the lateral view. RAD/Tibia Fibula 2 Views IMPRESSION: No fracture. Suggestion of diffuse pretibial soft tissue swelling on the lateral view. Reading Location: [id number] CC: Dr. Jess Coker DO; No Primary Care Physician Wireless Operator: Signed Normal [facility] CNOVon 12-25-2024 CNOV Office Visit ([facility]) NEO BURR ([id number]) 4 F Date Time Provider Department 12/25/24 5:00 PM HERMELINDA MEDINA [facility] During your visit today, we recorded the following information about you: Temperature Pulse Respiration Blood pressure 102.3 degrees 113/minute 18/minute 144/81 Weight 97.4 kg Hermelinda Medina, SURFACE PLATE INSPECTOR.JANITOR CLEANER 12/25/2024 4:53 PM Signed Subjective Pt is a 24 y/o female who presents with a sore throat, painful swallowing and a fever x 2 days. Pt has been trying otc tylenol and chloraseptic spray with moderate relief. Pt reports seeing 'white spotting' on tonsils. Sore Throat Pertinent negatives include no congestion, coughing, ear pain or shortness of breath. Review of Systems Constitutional: Positive for chills, fever and malaise/fatigue. HENT: Positive for sore throat. Negative for congestion, ear pain and sinus pain. Eyes: Negative. Respiratory: Negative for cough, sputum production and shortness of breath. Cardiovascular: Negative. Gastrointestinal: Negative. Genitourinary: Negative. Musculoskeletal: Positive for myalgias. Neurological: Negative. BP 144/81 Pulse 113 Temp (!) 39.1 ?C (102.3 ?F) Resp 18 Wt 97.4 kg (214 lb 11.7 oz) LMP 05/15/2018 (LMP Unknown) SpO2 97% No past medical history on file. No past surgical history on file. ALLERGIES Patient has no known allergies. MEDICATIONS amoxicillin (AMOXIL) 500 mg capsule Take 1 capsule by mouth two times a day for 10 days. sulfamethoxazole-tri methoprim (BACTRIM,SEPTRA) 200-40 mg/5 mL suspension Take 4 tsp twice daily for 10 days (Patient not taking: Reported on 06/08/2018 ) No family history on file. Social History Tobacco Use Smoking status: Never Passive exposure: Yes Smokeless tobacco: Never Objective Physical Exam Constitutional: General: She is awake. HENT: Head: Normocephalic. Right Ear: Hearing and tympanic membrane normal. Left Ear: Hearing and tympanic membrane normal. Nose: Nose normal. Mouth/Throat: Mouth: Mucous membranes are moist. Pharynx: Pharyngeal swelling and posterior oropharyngeal erythema present. Tonsils: Tonsillar exudate present. Eyes: Conjunctiva/sclera: Conjunctivae normal. Cardiovascular: Rate and Rhythm: Normal rate and regular rhythm. Pulmonary: Effort: Pulmonary effort is normal. Breath sounds: Normal breath sounds. Lymphadenopathy: Cervical: Cervical adenopathy present. Right cervical: Superficial cervical adenopathy present. Left cervical: Superficial cervical adenopathy present. Neurological: Mental Status: She is alert. ASSESSMENT/PLAN: 1. Strep pharyngitis - ICD9: 034.0, ICD10: J02.0 (primary diagnosis) - Rapid Strep positive in the office today - Discussed supportive care treatment with fluids, rest and analgesia. - The patient may also use OTC decongestants prn, OTC cough and cold meds as needed, and warm salt water gargles, throat lozenges and/or OTC throat spray as needed. - Contagious dz precautions discussed- including considered contagious until on antibiotics for 24 hours - AMOXICILLIN 500 MG CAPSULE 2. Sore throat - ICD9: 462, ICD10: J02.9 - Rapid Strep positive in the office today - Discussed supportive care treatment with fluids, rest and analgesia. - The patient may also use OTC decongestants prn, OTC cough and cold meds as needed, and warm salt water gargles, throat lozenges and/or OTC throat spray as needed. - Contagious dz precautions discussed- including considered contagious until on antibiotics for 24 hours - STREP A MOLECULAR (POC) Debra Stanley TEACHING PROVIDER (Physician/PA/SURFACE PLATE INSPECTOR) NOTE OF PERSONAL INVOLVEMENT IN CARE: I have personally seen and examined the patient and performed the medical decision-making components. I have reviewed the Advanced Practice Registered Nurse (SURFACE PLATE INSPECTOR) Student's documentation and verified the findings in the note as written. Any additions or changes are noted in bold/italics. Signature: Hermelinda Medina Date: 12/25/2024 Time: 4:52 PM Hermelinda Medina APRN.[facility] 12/25/2024 4:52 PM Addendum 1. Strep pharyngitis - ICD9: 034.0, ICD10: J02.0 (primary diagnosis) - Rapid Strep positive in the office today - Discussed supportive care treatment with fluids, rest and analgesia. - The patient may also use OTC decongestants prn, OTC cough and cold meds as needed, and warm salt water gargles, throat lozenges and/or OTC throat spray as needed. - Contagious dz precautions discussed- including considered contagious until on antibiotics for 24 hours - AMOXICILLIN 500 MG CAPSULE 2. Sore throat - ICD9: 462, ICD10: J02.9 - Rapid Strep positive in the office today - Discussed supportive care treatment with fluids, rest and analgesia. - The patient may also use OTC decongestants prn, OTC cough and cold meds as needed, and warm salt water gargles, throa (more content not included)... Normal [facility] STREP A MOLECULAR (POC)on Interpretation and review of laboratory results Abnormal [facility] Procedural Control Valid [facility] Strep A (POCT) Positive Abnormal Negative [facility] M8200.2100on 05-16-2024 M8200.2100 Chlamydia Trachomatis PCR POSITIVE A Chlamydia trachomatis Normal [facility] Comment on above: Performed By: #### M 8200.2200, M8200.2100 #### [facility] [address] [place], [address] M8200.2200on 05-16-2024 M8200.2200 Negative Normal [facility] Comment on above: Performed By: #### M 8200.2200, M8200.2100 #### [facility] [address] [place], [address] [employer] Office Visit Reporton 05-16-2024 [employer] Office Visit Report [facility] [address] [place] [address] OFFICE VISIT Date of Service: 05/16/24 MR#: [id number] Acct: [id number] Name: SARA BURRSamia Pelletier Rep #: [id number] : 2000 Provider: MARIELENA Ulrich Age/Sex: 23/F [place] [facility] [place]: Signed Intake Vital Signs 12/19/23 14:10 05/16/24 13:35 Height 5 ft 6 in 5 ft 6 in Weight: 200 lb BMI 32.3 BP 128/72 H Blood Pressure Location Rt brachial Position Sitting Intake Visit Reasons: STD CHECK Chief Complaint: Concern for STD exposure Is patient in pain?: No Allergies No Known Allergies Allergy (Verified 05/16/24 13:37) Medications ???Medication ???Instructions ???Recorded ???Confirmed ???Type NK 05/16/24 05/16/24 History Is last menstrual period known: Yes Last Menstrual Period: 05/15/24 Patient : No : No [facility] Medical History Incomplete Broken teeth Depression Marijuana use Non-smoker History of pancreatitis Vaginal delivery Anxiety ADHD Umbilical hernia Accidental fall from building MRSA (methicillin resistant Staphylococcus aureus) Social History (Updated 05/16/24 @ 13:40 by Jyoti Paredes) current occupational status: employed current occupation: [employer] pets and animals: Yes sexually active: Yes Smoking Status: Never smoker second hand exposure: Yes alcohol intake: current details: not while substance use type: marijuana seatbelt use: sometimes additional social history: Single HPI STD CHECK Details: NEO BURR is a 23 year old who presents for STD check. She reports she had intercourse with a partner who her friend also did and was told she (friend) had chlamydia. She reports she is asymptomatic from this. Denies fever, chills, abnormal discharge, abnormal pelvic pain (Currently on menses, started yesterday). Female Reproductive History Last Menstrual Period: 05/15/24 Questions: sexually active: Yes, dyspareunia: No and PCB: No History 2 Elective abortions Hx Para 1 Spontaneous abortions Hx # Term Pregnancies 1 Ectopic pregnancies Hx # Pregnancies Multiple births # of living children 1 Past Pregnancies Del. Date Name GA/Weeks Outcome Route Bth Weight Infant Gen Labor Lgth Anesthesia Del Locatn Provider FOB Unknown 202207/06/20 Legend 40 live - full term Male [facility] Diann nthony ROS Const ROS Unobtainable: All systems reviewed are unremarkable except as noted in H : Denies genital lesions, genital pruritis, hematuria, vaginal discharge, vaginal dryness, vaginal odor or vaginal pruritus Exam Const General: cooperative, healthy appearing and comfortable Eyes General: appearance normal, both eyes and all related structures Resp Effort Inspection: normal respiratory effort, able to speak in complete sentences and symmetric chest movement General: deferred (patient declines exam today.) Coding Level of Care Code Established Pt Off vis,est,level 2 Patient Type Established Diagnoses Exposure to STD Z20.2 Assessment and Plan Assessment and Plan (1) Exposure to STD: Status: Acute Plan: Will run urine GC/Chlam testing as she has possible exposure to Chlamydia from partner. Treat based on results. Declines further vaginal testing d/t being on her cycle. Does not want blood work completed. She is interested nexplanon and will return to office at the time of nexplanon insertion for further STD testing if she chooses. Orders: Orders Chlamydia/Neisseria PCR Today Z20.2 - Contact with and (suspected) exposure to infections with a predominantly sexual mode of transmission 05/16/24 1432 Date Anyi Ralph NP-C Cosigner Signature: Date (if applicable) CC: Normal [facility] Cervical or vagninal specime n microscopic examination by cytology stain (reported asOrdered By: Genia Diaz on 12-19-2023 Cytology report Cyto stain Doc (Cvx/Vag) Comment . [facility] Comment on above: The Pap smear is a s creening test designed to aid in thedetection of premalignant and malignant conditions of theuterine cervix. It is not a diagnostic procedure andshould not be used as the sole means of detecting cervicalcancer. Both false-positive and false-negative reports dooccur. HIV 1 and HIV-2 antibody ass ay with HIV-1 p24 antigen detectionOrdered By: Genia Diaz on 12-19-2023 HIV 1+2 Ab+HIV1 p24 Ag IA Ql Non-Reactive Nonreactive [facility] Herpes simplex virus (HSV) t ype 1 IgG antibody assayOrdered By: Genia Diaz on 12-19-2023 HSV 1 IgG Qn (S) 55.60 index 0.00-0.90 [facility] Comment on above: Negative <0.91 Equiv ocal 0.91 - 1.09 Positive >1.09 Note: Negative indicates no antibodies detected to HSV-1. Equivocal may suggest early infection. If clinically appropriate, retest at later date. Positive indicates antibodies detected to HSV-1. Laboratory - CytologyOrdered By: Genia Diaz on 12-19-2023 House Decorator Cyto stain Nom (Cvx/Vag) [ID] Comment . [facility] Comment on above: Teddy Lynn totechnologist Laboratory - Miscellaneous t estsOrdered By: Geniakenny Diaz on 12-19-2023 Service comment (Unsp spec) [Interp] . . [facility] No Panel InformationOrdered By: Genia Diaz on 12-19-2023 Human Papillomavirus Screen Comment . [facility] Comment on above: The HPV DNA reflex c riteria were not met with this specimenresult therefore, no HPV testing was performed.Performed at: [facility] [id number] Director: Isidra Jones MD, Phone: [phone] Hepatitis C Antibody Non-Reactive Nonreactive [facility] Comment on above: Non Reactive: < 0.8 Equivocal: >/= 0.8 to < 1.0 Reactive: >/= 1.0The [facility] recommends that a reactive/equivocal HCV antibody result be followed up by the HCV Nucleic Acid Amplificationtest (815631) No Panel Informationon 12-19 POC Trichomonas (Rapid) Positive [facility] Serum Treponema species anti body detectionOrdered By: Genia Diaz on 12-19-2023 Treponema sp Ab Ql (S) Non-Reactive [facility] Serum herpes simplex virus 2 antibody assay by immunoassay (units/volume)Ordered By: Genia Diaz on 12-19-2023 HSV 2 Ab IA Qn (S) < 0.91 index 0.00-0.90 [facility] Comment on above: Negative <0.91 Equiv ocal 0.91 - 1.09 Positive >1.09 HSV-2 Antibody Interpretation: Current guidelines and recommendations do not recommend routine screening for HSV-2 in asymptomatic individuals, including those that are . A negative antibody result indicates no detectable antibodies to HSV-2 were found. If recent exposure is suspected, retest in 4 to 6 weeks. Equivocal samples should be retested in 4 to 6 weeks. A positive result indicates the presence of detectable IgG antibody to HSV-2. FALSE POSITIVE RESULTS MAY OCCUR. Repeat testing, or testing by a different method, may be indicated in some settings (e.g. patients with low likelihood of HSV infection). If clinically appropriate, retest 4 to 6 weeks later. HSV-2 IgG antibody testing results should be clinically correlated.Performed at: [address] [id number] Director: Tanmay Bender PhD, Phone: [phone] Thin prep Papanicolaou smear with manual screeningOrdered By: Genia Diaz on 12-19-2023 Thin prep Papanicolaou smear with manual screening Comment . [facility] Comment on above: NEGATIVE FOR INTRAEP ITHELIAL LESION OR MALIGNANCY.TRICHOMONAS VAGINALIS IS PRESENT. This liquid based Th inPrep(R) pap test was screened withthe use of an image guided system. Neisseria gonorrhoeae genita l PCROrdered By: Genia Diaz on 06-11-2023 N. gonorrhoeae DNA KIRILL+probe Ql (Genital specimen) [facility] No Panel InformationOrdered By: Genia Diaz on 06-11-2023 Chlamydia trachomatis (PCR) [facility] Absolute lymphocyte countOrd ered By: Luci Arreguin on 05-25-2023 Lymphocytes Auto (Unsp spec) [#/Vol] 2.35 10*3/uL 0.83-4.51 [facility] Basophil percentageOrdered B y: Luci Arreguin on 05-25-2023 Basophils/100 WBC (Bld) 0.3 % 0-1 [facility] Eosinophils/100 WBC (Bld) 0.9 % 0-5 [facility] Neutrophils (Bld) [#/Vol] 10.4 10*3/uL 2.0-7.7 [facility] Neutrophils/100 WBC (Bld) 74.5 % 47-70 [facility] WBC (Bld) [#/Vol] 14.0 10*3/uL 4.4-11.0 [facility] Blood erythrocytes count (nu mber/volume)Ordered By: Luci Arreguin on 05-25-2023 RBC (Bld) [#/Vol] 4.36 10*6/uL 4.2-5.4 [facility] Blood hemoglobin measurement (mass/volume)Ordered By: Luci Arreguin on 05-25-2023 Hemoglobin (Bld) [Mass/Vol] 12.2 g/dL 12.0-15.0 [facility] Blood lymphocytes/100 leukoc ytesOrdered By: Luci Arreguin on 05-25-2023 Lymphocytes/100 WBC (Bld) 16.8 % 19-41 [facility] Blood monocytes/100 leukocyt esOrdered By: Luci Arreguin on 05-25-2023 Monocytes/100 WBC (Bld) 7.1 % 0-10 [facility] Blood platelet mean volumeOr dered By: Luci Arreguin on 05-25-2023 Platelet mean volume (Bld) [Entitic vol] 9.5 fL 6.2-12.0 [facility] Determination of erythrocyte mean corpuscular volume (MCV)Ordered By: Luci Arreguin on 05-25-2023 MCV (RBC) [Entitic vol] 84.9 fL 81-99 [facility] Hematocrit Auto (Bld) [Volum e fraction]Ordered By: Luci Arreguin on 05-25-2023 Hematocrit (Bld) [Volume fraction] 37.0 % 37-47 [facility] Laboratory - Hematology and Cell countsOrdered By: Luci Arreguin on 05-25-2023 Erythrocyte distribution width (RBC) [Entitic vol] 40.5 fL 35.1-43.9 [facility] Erythrocyte distribution width (RBC) [Ratio] 13.2 % 11.6-14.6 [facility] Immature granulocytes/100 WBC (Bld) 0.400 % 0.0-0.9 [facility] Comment on above: IG% - Immature Granu locytes (promyelocytes, myelocytes and metamyelocytes) > 1% indicates that a LEFT SHIFT is Present. MCH (RBC) [Entitic mass] 28.0 pg 27.0-32.0 [facility] Nucleated RBC/100 WBC (Bld) [Ratio] 0 % 0-5 [facility] MCHC Auto (RBC) [Mass/Vol]Or dered By: Luci Rodríguez on 05-25-2023 MCHC (RBC) [Mass/Vol] 33.0 g/dL 32-36 [facility] Platelets bldOrdered By: Zachary Arreguin on 05-25-2023 Platelets (Bld) [#/Vol] 393 10*3/uL 150-450 [facility] Absolute lymphocyte countOrd ered By: Norris Fernandez on 05-08-2023 Lymphocytes Auto (Unsp spec) [#/Vol] 2.33 10*3/uL 0.83-4.51 [facility] Basophil percentageOrdered B y: Norris Fernandez on 05-08-2023 Basophil percentage 0 SEEN /hpf 0-5 [facility] Basophils/100 WBC (Bld) 0.4 % 0-1 [facility] Chloride [Moles/Vol] 110 mmol/L 98-107 [facility] Eosinophils/100 WBC (Bld) 1.0 % 0-5 [facility] Glucose [Mass/Vol] 90 mg/dL 74-106 [facility] Neutrophils (Bld) [#/Vol] 8.5 10*3/uL 2.0-7.7 [facility] Neutrophils/100 WBC (Bld) 70.2 % 47-70 [facility] Potassium [Moles/Vol] 3.9 mmol/L 3.5-5.1 [facility] Sodium [Moles/Vol] 138 mmol/L 136-145 [facility] WBC (Bld) [#/Vol] 12.1 10*3/uL 4.4-11.0 [facility] Bilirubin Test strip Ql (U)O rdered By: Norris Fernandez on 05-08-2023 Bilirubin Ql (U) Negative Negative [facility] Blood erythrocytes count (nu mber/volume)Ordered By: Norris Fernandez on 05-08-2023 RBC (Bld) [#/Vol] 4.61 10*6/uL 4.2-5.4 [facility] Blood hemoglobin measurement (mass/volume)Ordered By: Norris Fernandez on 05-08-2023 Hemoglobin (Bld) [Mass/Vol] 12.9 g/dL 12.0-15.0 [facility] Blood lymphocytes/100 leukoc ytesOrdered By: Norris Fernandez on 05-08-2023 Lymphocytes/100 WBC (Bld) 19.3 % 19-41 [facility] Blood monocytes/100 leukocyt esOrdered By: Norris Fernandez on 05-08-2023 Monocytes/100 WBC (Bld) 8.8 % 0-10 [facility] Blood platelet mean volumeOr dered By: Norris Fernandez on 05-08-2023 Platelet mean volume (Bld) [Entitic vol] 9.7 fL 6.2-12.0 [facility] Determination of erythrocyte mean corpuscular volume (MCV)Ordered By: Norris Fernandez on 05-08-2023 MCV (RBC) [Entitic vol] 87.0 fL 81-99 [facility] Hematocrit Auto (Bld) [Volum e fraction]Ordered By: Norris Fernandez on 05-08-2023 Hematocrit (Bld) [Volume fraction] 40.1 % 37-47 [facility] Ketones Test strip Ql (U)Ord ered By: Norris Fernandez on 05-08-2023 Ketones Ql (U) Negative Negative [facility] Laboratory - Chemistry and C hemistry - challengeOrdered By: Norris Fernandez on 05-08-2023 CO2 [Moles/Vol] 23.0 mmol/L 21.0-32.0 [facility] Urea nitrogen/Creatinine [Mass ratio] 12.4 mg/mg 10-20 [facility] Laboratory - Hematology and Cell countsOrdered By: Norris Fernandez on 05-08-2023 Erythrocyte distribution width (RBC) [Entitic vol] 41.8 fL 35.1-43.9 [facility] Erythrocyte distribution width (RBC) [Ratio] 13.2 % 11.6-14.6 [facility] Immature granulocytes/100 WBC (Bld) 0.300 % 0.0-0.9 [facility] Comment on above: IG% - Immature Granu locytes (promyelocytes, myelocytes and metamyelocytes) > 1% indicates that a LEFT SHIFT is Present. MCH (RBC) [Entitic mass] 28.0 pg 27.0-32.0 [facility] Nucleated RBC/100 WBC (Bld) [Ratio] 0 % 0-5 [facility] MCHC Auto (RBC) [Mass/Vol]Or dered By: Norris Fernandez on 05-08-2023 MCHC (RBC) [Mass/Vol] 32.2 g/dL 32-36 [facility] Mucus LM Ql (Urine sed)Order ed By: Norris Fernandez on 05-08-2023 Mucus Ql (Urine sed) 0 SEEN /hpf [facility] Nitrite Test strip Ql (U)Ord ered By: Norris Fernandez on 05-08-2023 Nitrite Ql (U) Negative Negative [facility] No Panel InformationOrdered By: Norris Fernandez on 05-08-2023 Estimated Creatinine Clearance Calc 147.38 ml/min [facility] Estimated GFR (MDRD) Amer 174 mL/min >60 [facility] Comment on above: GFR Calc Estimated GFR (MDRD) Non-Af Amer 144 mL/min >60 [facility] Comment on above: Non- GFR Calc Platelets bldOrdered By: Willow Fernandez on 05-08-2023 Platelets (Bld) [#/Vol] 396 10*3/uL 150-450 [facility] Protein Test strip Ql (U)Ord ered By: Norris Fernandez on 05-08-2023 Protein Ql (U) 15 mg/dl Negative [facility] Serum or plasma calcium francisca urement (mass/volume)Ordered By: Norris Fernandez on 05-08-2023 Calcium [Mass/Vol] 9.0 mg/dL 8.5-10.1 [facility] Serum or plasma choriogonado tropin detectionOrdered By: Norris Fernandez on 05-08-2023 HCG ( test) Ql 3918 mIU/mL <4 [facility] Comment on above: hCG levels with Gest ational AgeGestational Age hCG mIU/mL (IU/L)0.2 - 1 week 5 - 501-2 weeks 50 - 5002-3 weeks 100 - 40528-5 weeks 500 - 407282-1 weeks 1000 - 553512-7 weeks 45304 - 100,0006-8 weeks 78501 - 200,0002-3 months 16721 - 100,000 Serum or plasma creatinine m easurement (mass/volume)Ordered By: Norris Fernandez on 05-08-2023 Creatinine [Mass/Vol] 0.57 mg/dL 0.55-1.02 [facility] Comment on above: The validity of the calculated GFR & GFRAA in patients over 70 years has not been determined. Clinical correlation is essential. Serum or plasma urea nitroge n measurement (mass/volume)Ordered By: Norris Fernandez on 05-08-2023 Urea nitrogen [Mass/Vol] 7 mg/dL 7-18 [facility] Squamous epithelial cells de tection in urine sediment by light microscopyOrdered By: Norris Fernandez on 05-08-2023 Epithelial cells.squamous LM Ql (Urine sed) 0-5 SEEN /hpf 5-10 [facility] Thin prep Papanicolaou smear with manual screeningOrdered By: Norris Fernandez on 05-08-2023 Thin prep Papanicolaou smear with manual screening 5 5-15 [facility] Urine blood detectionOrdered By: Norris Fernandez on 05-08-2023 RBC Ql (U) 50 /ul Negative [facility] RBC Ql (U) 0-5 SEEN /hpf 0-5 [facility] Urine clarityOrdered By: Willow Fernandez on 05-08-2023 Clarity (U) Clear Clear [facility] Urine color determinationOrd ered By: Norris Fernandez on 05-08-2023 Color (U) Yellow Yellow [facility] Urine glucose detectionOrder ed By: Norris Fernandez on 05-08-2023 Glucose Ql (U) Normal mg/dl Normal [facility] Urine leukocyte esterase det ection by dipstickOrdered By: Norris Fernandez on 05-08-2023 Leukocyte esterase Test strip Ql (U) Negative Negative [facility] Urine pHOrdered By: Norris ospina on 05-08-2023 pH (U) 7.0 [pH] 5.0 - 8.0 [facility] Urine sediment bacteria coun t by microscopy (number/high power field)Ordered By: Norris Fernandez on 05-08-2023 Bacteria LM.HPF (Urine sed) [#/Area] RARE /hpf None Seen [facility] Urine specific gravity measu rementOrdered By: Norris Fernandez on 05-08-2023 Specific gravity (U) [Rel density] 1.010 1.002-1.030 [facility] Urobilinogen Auto test strip Ql (U)Ordered By: Norris Fernandez on 05-08-2023 Urobilinogen Ql (U) Normal mg/dl Normal [facility] ED Note-Provideron 8 ED Note-Provider Normal [facility] ([place] Pat Eduon 01-31-2018 Pat Edu Normal [facility] [place] Patient Summary Documentson 01-31-2018 Patient Summary Documents Normal [facility] [place] Vital Signs Date Time Vital Sign Value Performing Clinician Facility 03-12-2025 16:51-0400 Body temperature 98.6 [degF] Pop Argueta MD Work Phone: [facility] 03-12-2025 16:51-0400 Body weight 99 kg Pop Argueta MD Work Phone: [facility] 03-12-2025 16:51-0400 Diastolic blood pressure 74 mm[Hg] Pop Argueta MD Work Phone: [facility] 03-12-2025 16:51-0400 Heart rate 65 /min Pop Argueta MD Work Phone: [facility] 03-12-2025 16:51-0400 Respiratory rate 20 /min Pop Argueta MD Work Phone: [facility] 03-12-2025 16:51-0400 SaO2% (BldA) [Mass fraction] 98 % Pop Argueta MD Work Phone: [facility] 03-12-2025 16:51-0400 Systolic blood pressure 121 mm[Hg] Pop Argueta MD Work Phone: [facility] 02-20-2025 20:18-0400 Body temperature 98.2 [degF] No Primary Care Physician [facility] 02-20-2025 20:18-0400 Diastolic blood pressure 60 mm[Hg] No Primary Care Physician [facility] 02-20-2025 20:18-0400 Heart rate 65 /min No Primary Care Physician [facility] 02-20-2025 20:18-0400 Respiratory rate 16 /min No Primary Care Physician [facility] 02-20-2025 20:18-0400 SaO2% (BldA) [Mass fraction] 98 % No Primary Care Physician [facility] 02-20-2025 20:18-0400 Systolic blood pressure 130 mm[Hg] No Primary Care Physician [facility] 02-20-2025 19:38-0400 Body height 167.64 cm No Primary Care Physician [facility] 02-20-2025 19:38-0400 Body mass index (BMI) [Ratio] 35.3 kg/m2 No Primary Care Physician [facility] 02-20-2025 19:38-0400 Body weight 99.2 kg No Primary Care Physician [facility] 12-25-2024 16:32-0500 Body temperature 102.31 [degF] Hermelinda Praisler-Wood SURFACE PLATE INSPECTOR.JANITOR CLEANER Work Phone: [facility] 12-25-2024 16:32-0500 Body weight 97.4 kg Hermelinda Praisler-Wood SURFACE PLATE INSPECTOR.JANITOR CLEANER Work Phone: [facility] 12-25-2024 16:32-0500 Diastolic blood pressure 81 mm[Hg] Hermelinda Praisler-Wood SURFACE PLATE INSPECTOR.JANITOR CLEANER Work Phone: [facility] 12-25-2024 16:32-0500 Heart rate 113 /min Hermelinda Praisler-Wood SURFACE PLATE INSPECTOR.JANITOR CLEANER Work Phone: [facility] 12-25-2024 16:32-0500 Respiratory rate 18 /min Hermelinda Praisler-Wood SURFACE PLATE INSPECTOR.JANITOR CLEANER Work Phone: [facility] 12-25-2024 16:32-0500 SaO2% (BldA) [Mass fraction] 97 % Hermelinda Praisler-Wood SURFACE PLATE INSPECTOR.JANITOR CLEANER Work Phone: [facility] 12-25-2024 16:32-0500 Systolic blood pressure 144 mm[Hg] Hermelinda Praisler-Wood SURFACE PLATE INSPECTOR.JANITOR CLEANER Work Phone: [facility] 12-19-2023 14:10-0500 Body height 167.64 cm No Primary Care Physician [facility] 12-19-2023 14:04-0500 Body mass index (BMI) [Ratio] 31.8 kg/m2 No Primary Care Physician [facility] 12-19-2023 14:04-0500 Body weight 89.35 kg No Primary Care Physician [facility] 12-19-2023 14:04-0500 Diastolic blood pressure 84 mm[Hg] No Primary Care Physician [facility] 12-19-2023 14:04-0500 Systolic blood pressure 122 mm[Hg] No Primary Care Physician [facility] 10-01-2023 17:43-0500 Body temperature 97.9 [degF] Jayson Powers SURFACE PLATE INSPECTOR.JANITOR CLEANER Work Phone: [facility] 10-01-2023 17:43-0500 Body weight 91.54 kg Jayson Powers SURFACE PLATE INSPECTOR.JANITOR CLEANER Work Phone: [facility] 10-01-2023 17:43-0500 Diastolic blood pressure 72 mm[Hg] Jayson Powers SURFACE PLATE INSPECTOR.JANITOR CLEANER Work Phone: [facility] 10-01-2023 17:43-0500 Heart rate 92 /min Jayson Powers SURFACE PLATE INSPECTOR.JANITOR CLEANER Work Phone: [facility] 10-01-2023 17:43-0500 Respiratory rate 21 /min Jayson Powers SURFACE PLATE INSPECTOR.JANITOR CLEANER Work Phone: [facility] 10-01-2023 17:43-0500 SaO2% (BldA) [Mass fraction] 99 % Jayson Powers SURFACE PLATE INSPECTOR.JANITOR CLEANER Work Phone: [facility] 10-01-2023 17:43-0500 Systolic blood pressure 110 mm[Hg] Jayson Powers SURFACE PLATE INSPECTOR.JANITOR CLEANER Work Phone: [facility] 06-11-2023 11:49-0400 Body height 167.64 cm No Primary Care Physician [facility] 06-11-2023 11:48-0400 Body mass index (BMI) [Ratio] 33.4 kg/m2 No Primary Care Physician [facility] 06-11-2023 11:48-0400 Body weight 94 kg No Primary Care Physician [facility] 06-11-2023 11:48-0400 Diastolic blood pressure 82 mm[Hg] No Primary Care Physician [facility] 06-11-2023 11:48-0400 Systolic blood pressure 127 mm[Hg] No Primary Care Physician [facility] 05-25-2023 12:08-0400 Body temperature 98.2 [degF] No Primary Care Physician [facility] 05-25-2023 12:08-0400 Diastolic blood pressure 54 mm[Hg] No Primary Care Physician [facility] 05-25-2023 12:08-0400 Heart rate 60 /min No Primary Care Physician [facility] 05-25-2023 12:08-0400 Respiratory rate 16 /min No Primary Care Physician [facility] 05-25-2023 12:08-0400 SaO2% (BldA) [Mass fraction] 98 % No Primary Care Physician [facility] 05-25-2023 12:08-0400 Systolic blood pressure 119 mm[Hg] No Primary Care Physician [facility] 05-25-2023 08:25-0400 Body height 167.64 cm No Primary Care Physician [facility] 05-25-2023 08:25-0400 Body mass index (BMI) [Ratio] 34 kg/m2 No Primary Care Physician [facility] 05-25-2023 08:25-0400 Body weight 95.7 kg No Primary Care Physician [facility] 05-22-2023 08:23-0400 Body mass index (BMI) [Ratio] 34.4 kg/m2 No Primary Care Physician [facility] 05-22-2023 08:23-0400 Body weight 96.72 kg No Primary Care Physician [facility] 05-22-2023 08:23-0400 Diastolic blood pressure 62 mm[Hg] No Primary Care Physician [facility] 05-22-2023 08:23-0400 Systolic blood pressure 102 mm[Hg] No Primary Care Physician [facility] 05-08-2023 13:58-0400 Body mass index (BMI) [Ratio] 33.9 kg/m2 No Primary Care Physician [facility] 05-08-2023 13:58-0400 Body weight 95.3 kg No Primary Care Physician [facility] 05-08-2023 13:19-0400 Body temperature 95.2 [degF] No Primary Care Physician [facility] 05-08-2023 13:19-0400 Diastolic blood pressure 79 mm[Hg] No Primary Care Physician [facility] 05-08-2023 13:19-0400 Heart rate 64 /min No Primary Care Physician [facility] 05-08-2023 13:19-0400 Respiratory rate 18 /min No Primary Care Physician [facility] 05-08-2023 13:19-0400 SaO2% (BldA) [Mass fraction] 99 % No Primary Care Physician [facility] 05-08-2023 13:19-0400 Systolic blood pressure 129 mm[Hg] No Primary Care Physician [facility] Encounters Encounter Date Encounter Type Care Provider Facility Start: 03-12-2025 End: 03-12-2025 Office outpatient visit 15 minutes Pop Argueta MD Work Phone: [facility] Comment on above: Worms in stool (Prim kishor Dx) Start: 03-12-2025 End: 03-12-2025 ambulatory SIRENA MCNEIL Facility:[facility] Start: 02-20-2025 End: 02-20-2025 Emergency department patient visit No Primary Care Physician -Emergency Department Work Phone: Start: 12-25-2024 End: 12-25-2024 Office outpatient visit 15 minutes Hermelinda Medina APRN.CNP Work Phone: [facility] Comment on above: Strep pharyngitis (P rimary Dx); Sore throat Start: 12-25-2024 End: 12-25-2024 ambulatory SIRENA MCNEIL Facility:[facility] Start: 07-02-2024 ambulatory No Primary Car e Physician Facility:[facility] Start: 05-16-2024 End: 05-16-2024 ambulatory No Primary Care Physician Facility:[facility] Start: 05-16-2024 End: 05-16-2024 ambulatory No Primary Care Physician Facility:[facility] Start: 12-19-2023 End: 12-19-2023 ambulatory No Primary Care Physician [facility] Work Phone: Start: 12-19-2023 End: 12-19-2023 Patient encounter procedure No Primary Care Physician [facility] Work Phone: Start: 10-01-2023 End: 10-01-2023 Office outpatient visit 25 minutes Jayson Nunezkari CRAIG.JANITOR CLEANER Work Phone: [facility] Comment on above: Dental infection (Pr imary Dx) Start: 06-11-2023 End: 06-11-2023 ambulatory No Primary Care Physician [facility] Work Phone: Start: 06-11-2023 End: 06-11-2023 Patient encounter procedure No Primary Care Physician [facility]-Laboratory, Specimen Work Phone: Start: 06-11-2023 End: 06-11-2023 Patient encounter procedure No Primary Care Physician [facility] Work Phone: Start: 05-25-2023 Non-patient / Non-visit No [facility] deni Care Physician [facility] Start: 05-25-2023 End: 05-25-2023 Admission to same day surgery center No Primary Care Physician [facility]-Surgical Day Care Start: 05-25-2023 End: 05-25-2023 ambulatory No Primary Care Physician [facility] Work Phone: Start: 05-22-2023 End: 05-22-2023 Patient encounter procedure No Primary Care Physician [facility] Work Phone: Start: 05-21-2023 End: 05-21-2023 ambulatory No Primary Care Physician [facility] Work Phone: Start: 05-21-2023 End: 05-21-2023 Patient encounter procedure No Primary Care Physician [facility]-Ultrasound, [facility] Work Phone: Start: 05-08-2023 End: 05-08-2023 Emergency department patient visit No Primary Care Physician [facility]-Emergency Department Work Phone: Start: 01-31-2018 End: 01-31-2018 Emergency department patient visit VIDHYA QUESADA Facility:B Procedures Date Procedure Procedure Detail Performing Clinician Start: 02-20-2025 X-ray of ankle, thre e or more views No Primary Care Physician Start: 02-20-2025 Plain X-ray of tibia and fibula No Primary Care Physician Start: 12-25-2024 STREP A MOLECULAR (POC) Jayson Powers APRN.CNP Work Phone: Start: 06-11-2023 Bacterial nucleic acid assay No Primary Care Physician Start: 06-11-2023 Chlamydia trachomatis (PCR) No Primary Care Physician Start: 05-25-2023 Dilation and curetta ge of uterus No Primary Care Physician Start: 05-21-2023 Transvaginal obstetr ic ultrasonography No Primary Care Physician Start: 05-08-2023 Transvaginal obstetr ic ultrasonography No Primary Care Physician Plan of Treatment Date Care Activity Detail Author Start: 04-02-2030 Urine microalbumin profile DTa P,Tdap,Td Vaccine (10 - Td or Tdap) [facility] Start: 02-20-2025 [facility] Start: 07-27-2024 Covid-19 Vaccine ( season) Covid-19 Vaccine ( season) [facility] Start: 07-27-2024 Influenza vaccination Influenza Vacc ine (#1) [facility] Start: 12-19-2023 Herpes Simplex Virus Culture Herpes Simplex Virus Culture [facility] Start: 12-19-2023 Chlamydia deoxyribon ucleic acid detection [facility] Start: 12-19-2023 Herpes simplex virus identified in Unspecified specimen by Organism specific culture [facility] Start: 12-19-2023 Liquid based cervica l cytology screening [facility] Start: 2023 Pap Testing Pap Testing [facility] Start: 2023 Screening for malign ant neoplasm of cervix Cervical Cancer Screening [facility] Start: 07-27-2023 Influenza vaccination Influenza Vacc ine (#1) [facility] Start: 05-25-2023 Anesthesia incomplete/missed ANESTH INC/MISSED AB PROC [facility] Start: 05-25-2023 Tx incomplete aborti on any trimester surgical TREATMENT OF MISCARRIAGE [facility] Start: 05-25-2023 Ambulation without limitation [facility] Start: 05-25-2023 Medical regimen orde rs management [facility] Start: 05-25-2023 Medication education [facility] Start: 05-25-2023 Patient discharge [facility] Start: 05-25-2023 Procedure discontinued [facility] Start: 05-25-2023 Taking patient vital signs [facility] Start: 05-25-2023 Vital signs measurements [facility] Start: 05-25-2023 [facility] Start: 11-26-2022 Depression Assessment Depression Ass essment [facility] Start: 2020 Anxiety Screening Anxiety Screening [facility] Start: 2020 Chlamydia Screening (1824) Chlamydia Screening (18-24) [facility] Start: 2020 Depression Screening Depression Scre ening [facility] Start: 2020 GC (Gonorrhea) Scree cesia (18-24) GC (Gonorrhea) Screening (18-24) [facility] Start: 2020 Hepatitis C Screening Hepatitis C [facility] Start: 2020 Hepatitis C screening Hepatitis C [facility] Start: 2020 HIV Screening HIV Screening [facility] Start: 2020 HIV screening HIV Screening [facility] Start: 2020 Screening for Chlamy gucci trachomatis Chlamydia Screening (18) [facility] Start: 2018 Meningococcal B Vacc ine (1 of 2 - Standard) Meningococcal B Vaccine (1 of 2 - Standard) [facility] Start: 2018 Meningococcal B Vacc ine: Consider Based On Risk (1 of 2 - Patient Seeks Protection) Meningococcal B Vaccine: Consider Based On Risk (1 of 2 - Patient Seeks Protection) [facility] Start: 2016 Peds To Adult Transi tion Annual Assessment Peds To Adult Transition Annual Assessment [facility] Start: 01-26-2016 HPV Vaccine (2 - 2-d ose series) HPV Vaccine (2 - 2-dose series) [facility] Start: 2014 Peds To Adult Transi tion Initial Discussion Peds To Adult Transition Initial Discussion [facility] Start: 03-29-2003 Covid-19 Vaccine (#1) Covid-19 Vacci ne (#1) [facility] Chlamydia deoxyribon ucleic acid detection [facility] Herpes simplex virus identified in Unspecified specimen by Organism specific culture [facility] Neisseria gonorrhoea e rRNA [Presence] in Unspecified specimen by KIRILL with probe detection [facility] Ova and parasites identified in Unspecified specimen by Light microscopy OVA + PARA MICROSCOPIC Microbiology Routine Worms in stool Ordered: 03/12/2025 [facility] Work Phone: Comment on above: Ordered: 03/12/2025 Patient Education [facility] Work Phone: Patient referral [facility] Work Phone: PCR test for Chlamyd ia trachomatis [facility] Immunizations Immunization Date Immunization Notes Care Provider [facility]-02-2020 diphtheria, tetanus toxoids and acellular pertussis vaccine, unspecified formulation Hermelinda Medina APRN.JANITOR CLEANER Work Phone: [facility] 04-02-2020 tetanus toxoid, redu livia diphtheria toxoid, and acellular pertussis vaccine, adsorbed No Primary Care Physician [facility] 07-10-2019 tetanus toxoid, redu livia diphtheria toxoid, and acellular pertussis vaccine, adsorbed No Primary Care Physician [facility] 07-28-2015 human papilloma viru s vaccine, quadrivalent Hermelinda Medina APRN.JANITOR CLEANER Work Phone: [facility] 07-28-2015 meningococcal polysaccharide (groups A, C, Y and W-135) diphtheria toxoid conjugate vaccine (MCV4P) Hermelinda Medina APRN.JANITOR CLEANER Work Phone: [facility] 07-28-2015 tetanus toxoid, redu livia diphtheria toxoid, and acellular pertussis vaccine, adsorbed Hermelinda Medina APRN.JANITOR CLEANER Work Phone: [facility] 08-07-2011 influenza, seasonal, injectable, preservative free Hermelinda Medina APRN.JANITOR CLEANER Work Phone: [facility] 08-07-2011 influenza virus vacc ine, unspecified formulation Jayson Powers SURFACE PLATE INSPECTOR.JANITOR CLEANER Work Phone: [facility] 06-07-2007 DTaP-hepatitis B and poliovirus vaccine Hermelinda Medina APRN.JANITOR CLEANER Work Phone: [facility] 06-07-2007 hepatitis A vaccine, pediatric/adolescent dosage, 2 dose schedule Hermelinda Medina SURFACE PLATE INSPECTOR.JANITOR CLEANER Work Phone: [facility] 06-07-2007 measles, mumps and rubella virus vaccine Hermelinda Medina SURFACE PLATE INSPECTOR.JANITOR CLEANER Work Phone: [facility] 08-24-2006 hepatitis A vaccine, pediatric/adolescent dosage, 2 dose schedule Hermelinda Medina SURFACE PLATE INSPECTOR.JANITOR CLEANER Work Phone: [facility] 12-19-2005 diphtheria, tetanus toxoids and acellular pertussis vaccine, unspecified formulation eHrmelinda Medina APRN.JANITOR CLEANER Work Phone: [facility] 12-19-2005 pneumococcal conjuga te vaccine, 7 valent Hermelinda Medina SURFACE PLATE INSPECTOR.JANITOR CLEANER Work Phone: [facility] 05-16-2004 diphtheria, tetanus toxoids and acellular pertussis vaccine, unspecified formulation Hermelinda Medina SURFACE PLATE INSPECTOR.JANITOR CLEANER Work Phone: [facility] 05-16-2004 haemophilus influenz ae type b vaccine, conjugate unspecified formulation Hermelinda Medina APRN.JANITOR CLEANER Work Phone: [facility] 05-16-2004 measles, mumps and rubella virus vaccine Hermelinda Medina SURFACE PLATE INSPECTOR.JANITOR CLEANER Work Phone: [facility] 05-16-2004 poliovirus vaccine, unspecified formulation Hermelinda Medina SURFACE PLATE INSPECTOR.JANITOR CLEANER Work Phone: [facility] 07-20-2003 diphtheria, tetanus toxoids and acellular pertussis vaccine, unspecified formulation Hermelinda Medina SURFACE PLATE INSPECTOR.JANITOR CLEANER Work Phone: [facility] 07-20-2003 haemophilus influenz ae type b conjugate and Hepatitis B vaccine Hermelinda Medina SURFACE PLATE INSPECTOR.JANITOR CLEANER Work Phone: [facility] 07-20-2003 pneumococcal conjuga te vaccine, 7 valent Hermelinda Arias-Wood SURFACE PLATE INSPECTOR.JANITOR CLEANER Work Phone: [facility] 07-20-2003 poliovirus vaccine, inactivated Hermelindalaurent Arias-Wood SURFACE PLATE INSPECTOR.JANITOR CLEANER Work Phone: [facility] 02-27-2003 diphtheria, tetanus toxoids and acellular pertussis vaccine, unspecified formulation Hermelinda Medina SURFACE PLATE INSPECTOR.JANITOR CLEANER Work Phone: [facility] 02-27-2003 haemophilus influenz ae type b conjugate and Hepatitis B vaccine Hermelinda Arias-Arnaldo SURFACE PLATE INSPECTOR.JANITOR CLEANER Work Phone: [facility] 02-27-2003 pneumococcal conjuga te vaccine, 7 valent Hermelinda Arias-Arnaldo SURFACE PLATE INSPECTOR.JANITOR CLEANER Work Phone: [facility] 02-27-2003 poliovirus vaccine, inactivated Hermelinda Arias-Arnaldo SURFACE PLATE INSPECTOR.JANITOR CLEANER Work Phone: [facility] 2002 hepatitis B vaccine, pediatric or pediatric/adolescent dosage Hermelinda Arias-Arnaldo SURFACE PLATE INSPECTOR.JANITOR CLEANER Work Phone: [facility] Payers Date Payer Category Payer Self-pay [id number] 2022 Medicaid [id number] 2008 Unknown [id number] Unknown [id number] Unknown [id number] Unknown [id number] Unknown [id number] Social History Date Type Detail Facility [facility] Start: 05-23-2023 End: 12-19-2023 Tobacco smoking status NHIS Unknown if ever smoked [facility] Start: 2002 Sex Assigned At Female [facility] Start: 10-01-2023 Tobacco smoking status NHIS Never smoked tobacco [facility] History of tobacco use Passive smoker [facility] Start: 10-01-2023 Tobacco use and exposure Smokeless tobacco non-user [facility] Start: 10-01-2023 End: 03-12-2025 Alcohol intake Not Asked [facility] Start: 11-03-2020 End: 10-01-2023 History of Social function [facility] Start: 11-03-2020 End: 10-01-2023 Tobacco use panel [facility] National Score (1-100), lower number is lower risk Not on file [facility] Start: 2002 Sex Assigned At Not on file [facility] Start: 02-20-2025 Tobacco smoking status NHIS Smokes tobacco daily (finding) [facility] Start: 02-20-2025 Sex Female (finding) [facility] NEGATED: Highlighted row [facility] Goals Date Patient Goal Desired Activity /State Functional Status Date Assessment Result Facility 06-07-2015 Are you deaf, or do you have serious difficulty hearing No 06/07/2015 6:41 PM ERNESTINAT Deja Live MA No [facility] 06-07-2015 Are you blind, or do you have serious difficulty seeing, even when wearing glasses No 06/07/2015 6:41 PM ERNESTINAT Deja Live MA No [facility] 06-07-2015 Do you have serious difficulty walking or climbing stairs No 06/07/2015 6:41 PM EDT Deja Live MA No [facility] 06-07-2015 Do you have difficul ty dressing or bathing No 06/07/2015 6:41 PM EDT Deja Live MA No [facility] Mental Status Date Assessment Result Facility 05-25-2023 Cognitive function Voice/Name [facility] Work Phone: 06-07-2015 Because of a physica l, mental, or emotional condition, do you have serious difficulty concentrating, remembering, or making decisions No 06/07/2015 6:41 PM EDT Deja Live MA No [facility] Clinical Notes 05-25-2023 to 03-12-2025 Pop Argueta MD - 03/12/2025 5:00 PM EDTPatient InstructionsPramyrna-Hermelinda Mcintosh, SURFACE PLATE INSPECTOR.JANITOR CLEANER - 12/25/2024 4:42 PM Jayson Beebe, SURFACE PLATE INSPECTOR.JANITOR CLEANER - 10/01/2023 5:46 PM EST Note Date & Type Note Facility 03-12-2025 Note HNO ID: [id number] Author: POP ARGUETA MD Service: ? Author Type: Physician Type: Progress Notes Filed: 03/12/2025 17:11 Note Text: [facility] Subjective Neo Burr is a 24 year old female. Patient presents with: Diarrhea: Pt states she passed a possible worm yesterday after a BM and also passed another one today. X 1 day Last night patient noticed a long white item passed per your rectum which may be a worm. She has had some diarrhea and soft stools. She has had some mid abdominal discomfort. Denies fever, nausea, vomiting, or blood in her stool. She denies any consumption of raw meats. Diarrhea Review of Systems Gastrointestinal: Positive for diarrhea. Objective BP 121/74 Pulse 65 Temp 37 ?C (98.6 ?F) Resp 20 Wt 99 kg (218 lb 4.1 oz) LMP 02/19/2025 (Exact Date) SpO2 98% Physical Exam Constitutional: General: She is not in acute distress. HENT: Right Ear: Tympanic membrane and ear canal normal. Left Ear: Tympanic membrane and ear canal normal. Nose: Right Sinus: No maxillary sinus tenderness or frontal sinus tenderness. Left Sinus: No maxillary sinus tenderness or frontal sinus tenderness. Mouth/Throat: Mouth: Mucous membranes are moist. Eyes: Extraocular Movements: Extraocular movements intact. Conjunctiva/sclera: Conjunctivae normal. Pupils: Pupils are equal, round, and reactive to light. Cardiovascular: Rate and Rhythm: Normal rate and regular rhythm. Heart sounds: No murmur heard. Pulmonary: Effort: No respiratory distress. Breath sounds: No wheezing, rhonchi or rales. Abdominal: General: There is no distension. Palpations: There is no mass. Tenderness: There is no abdominal tenderness. Comments: Photo of commode showing elongated white object which could represent mucus or a worm. Musculoskeletal: Cervical back: Neck supple. Lymphadenopathy: Cervical: No cervical adenopathy. Neurological: Mental Status: She is alert. {ASSESSMENT/PLAN: 1. Worms in stool - ICD9: 128.9, ICD10: B83.9 Will have stool checked for parasites. - OVA + PARA MICROSCOPIC-treat if abnormal. Pop Argueta MD Differential Diagnoses - mucus passed per rectum - tapeworm or ascaris Procedures [facility] 03-12-2025 History of Presen t illness Narrative [facility] Subjective Leannazithea Burr is a 24 year old female. Patient presents with: Diarrhea: Pt states she passed a possible worm yesterday after a BM and also passed another one today. X 1 day Last night patient noticed a long white item passed per your rectum which may be a worm. She has had some diarrhea and soft stools. She has had some mid abdominal discomfort. Denies fever, nausea, vomiting, or blood in her stool. She denies any consumption of raw meats. Diarrhea Review of Systems Gastrointestinal: Positive for diarrhea. Objective BP 121/74 Pulse 65 Temp 37 C (98.6 F) Resp 20 Wt 99 kg (218 lb 4.1 oz) LMP 02/19/2025 (Exact Date) SpO2 98% Physical Exam Constitutional: General: She is not in acute distress. HENT: Right Ear: Tympanic membrane and ear canal normal. Left Ear: Tympanic membrane and ear canal normal. Nose: Right Sinus: No maxillary sinus tenderness or frontal sinus tenderness. Left Sinus: No maxillary sinus tenderness or frontal sinus tenderness. Mouth/Throat: Mouth: Mucous membranes are moist. Eyes: Extraocular Movements: Extraocular movements intact. Conjunctiva/sclera: Conjunctivae normal. Pupils: Pupils are equal, round, and reactive to light. Cardiovascular: Rate and Rhythm: Normal rate and regular rhythm. Heart sounds: No murmur heard. Pulmonary: Effort: No respiratory distress. Breath sounds: No wheezing, rhonchi or rales. Abdominal: General: There is no distension. Palpations: There is no mass. Tenderness: There is no abdominal tenderness. Comments: Photo of commode showing elongated white object which could represent mucus or a worm. Musculoskeletal: Cervical back: Neck supple. Lymphadenopathy: Cervical: No cervical adenopathy. Neurological: Mental Status: She is alert. {ASSESSMENT/PLAN: 1. Worms in stool - ICD9: 128.9, ICD10: B83.9 Will have stool checked for parasites. - OVA + PARA MICROSCOPIC-treat if abnormal. Pop Argueta MD Differential Diagnoses - mucus passed per rectum - tapeworm or ascaris Procedures documented in this encounter [facility] 02-20-2025 Radiology Diagnostic study note [facility] Imaging Services [address], [place] [id number] Tibia & Fibula 2 Views MR#: [id number] Acct: [id number] Name: NEO BURR Rep #: [id number] : 2000 F 24 From: Gonzalez Duran MD PCP: Care Physician,No Primary Status: REG ER Study:Tibia & Fibula 2 Views Date of Exam: 02/20/25 Exam# [id number] Ordering Dr: Amaya Coker DO EXAM: Diagnostic tibia fibula two-view x-ray CLINICAL HISTORY: Pain TECHNIQUE: AP and lateral two views of the left tibia and fibula FINDINGS: No fracture. Suggestion of diffuse pretibial soft tissue swelling on the lateral view. RAD/Tibia & Fibula 2 Views IMPRESSION: No fracture. Suggestion of diffuse pretibial soft tissue swelling on the lateral view. Reading Location: [facility] CC: Dr. Jess Coker DO; No Primary Care Physician ~ Wireless Operator: Signed [facility] 02-20-2025 Radiology Diagnostic study note [facility] Imaging Services [address] [place] [address] Ankle min 3 Views MR#: [id number] Acct: [id number] Name: NEO BURR Rep #: [id number] : 2000 F 24 From: Gonzalez Duran MD PCP: Care Physician,No Primary Status: REG ER Study:Ankle min 3 Views Date of Exam: Exam# [id number] Ordering Dr: Amaya Coker DO PROCEDURE: ANKLE MIN 3 VIEWS 02/20/2025 REASON FOR EXAM: PAIN TECHNIQUE: 3 views of the left ankle COMPARISON: 07/10/2019 FINDINGS: No fracture, dislocation or joint effusion. Appearance of lateral ankle soft tissue swelling. Joint spaces appear within limits. RAD/Ankle min 3 Views IMPRESSION: No fracture, dislocation or joint effusion. Appearance of lateral ankle soft tissue swelling. Reading Location: [id number] CC: Dr. Jess Coker DO; No Primary Care Physician ~ Wireless Operator: Signed [facility] 12-25-2024 Instructions Hermelinda Medina APRN.[facility] - 12/25/2024 4:49 PM EST 1. Strep pharyngitis - ICD9: 034.0, ICD10: J02.0 (primary diagnosis) - Rapid Strep positive in the office today - Discussed supportive care treatment with fluids, rest and analgesia. - The patient may also use OTC decongestants prn, OTC cough and cold meds as needed, and warm salt water gargles, throat lozenges and/or OTC throat spray as needed. - Contagious dz precautions discussed- including considered contagious until on antibiotics for 24 hours - AMOXICILLIN 500 MG CAPSULE 2. Sore throat - ICD9: 462, ICD10: J02.9 - Rapid Strep positive in the office today - Discussed supportive care treatment with fluids, rest and analgesia. - The patient may also use OTC decongestants prn, OTC cough and cold meds as needed, and warm salt water gargles, throat lozenges and/or OTC throat spray as needed. - Contagious dz precautions discussed- including considered contagious until on antibiotics for 24 hours - STREP A MOLECULAR (POC) STREP INFECTIONS: Streptococcal bacteria can cause a sore throat, ear and sinus infections, and skin diseases. Strep throat is diagnosed by a special throat swab or culture test. These infections require either an antibiotic shot or an oral antibiotic medicine to get rid of all the bacteria and prevent rheumatic fever, a dangerous complication. The symptoms of Strep infection, however, usually get better after just 2-3 days of drug treatment. These infections are very contagious; any close contacts who have a fever, sore throat, or illness symptoms should see their doctor right away. Strep is no longer contagious after 24 hours of antibiotic treatment so you may return to school or work if your fever and pain are better in one day. Strep infections can cause serious complications including throat abscess, rheumatic fever and kidney disease, so be sure to take all your antibiotic medicine. See your doctor or return here if your symptoms worsen or are not improved in 3 days or for diffuculty breathing or inability to swallow. documented in this encounter [facility] 12-25-2024 Note HNO ID: [id number] Author: HERMELINDA MEDINA APRN.JANITOR CLEANER Service: ? Author Type: Nurse Practitioner Type: Progress Notes Filed: 12/25/2024 16:53 Note Text: Subjective Pt is a 24 y/o female who presents with a sore throat, painful swallowing and a fever x 2 days. Pt has been trying otc tylenol and chloraseptic spray with moderate relief. Pt reports seeing 'white spotting' on tonsils. Sore Throat Pertinent negatives include no congestion, coughing, ear pain or shortness of breath. Review of Systems Constitutional: Positive for chills, fever and malaise/fatigue. HENT: Positive for sore throat. Negative for congestion, ear pain and sinus pain. Eyes: Negative. Respiratory: Negative for cough, sputum production and shortness of breath. Cardiovascular: Negative. Gastrointestinal: Negative. Genitourinary: Negative. Musculoskeletal: Positive for myalgias. Neurological: Negative. BP 144/81 Pulse 113 Temp (!) 39.1 ?C (102.3 ?F) Resp 18 Wt 97.4 kg (214 lb 11.7 oz) LMP 05/15/2018 (LMP Unknown) SpO2 97% No past medical history on file. No past surgical history on file. ALLERGIES Patient has no known allergies. MEDICATIONS amoxicillin (AMOXIL) 500 mg capsule Take 1 capsule by mouth two times a day for 10 days. sulfamethoxazole-trimethoprim (BACTRIM,SEPTRA) 200-40 mg/5 mL suspension Take 4 tsp twice daily for 10 days (Patient not taking: Reported on 06/08/2018 ) No family history on file. Social History Tobacco Use Smoking status: Never Passive exposure: Yes Smokeless tobacco: Never Objective Physical Exam Constitutional: General: She is awake. HENT: Head: Normocephalic. Right Ear: Hearing and tympanic membrane normal. Left Ear: Hearing and tympanic membrane normal. Nose: Nose normal. Mouth/Throat: Mouth: Mucous membranes are moist. Pharynx: Pharyngeal swelling and posterior oropharyngeal erythema present. Tonsils: Tonsillar exudate present. Eyes: Conjunctiva/sclera: Conjunctivae normal. Cardiovascular: Rate and Rhythm: Normal rate and regular rhythm. Pulmonary: Effort: Pulmonary effort is normal. Breath sounds: Normal breath sounds. Lymphadenopathy: Cervical: Cervical adenopathy present. Right cervical: Superficial cervical adenopathy present. Left cervical: Superficial cervical adenopathy present. Neurological: Mental Status: She is alert. ASSESSMENT/PLAN: 1. Strep pharyngitis - ICD9: 034.0, ICD10: J02.0 (primary diagnosis) - Rapid Strep positive in the office today - Discussed supportive care treatment with fluids, rest and analgesia. - The patient may also use OTC decongestants prn, OTC cough and cold meds as needed, and warm salt water gargles, throat lozenges and/or OTC throat spray as needed. - Contagious dz precautions discussed- including considered contagious until on antibiotics for 24 hours - AMOXICILLIN 500 MG CAPSULE 2. Sore throat - ICD9: 462, ICD10: J02.9 - Rapid Strep positive in the office today - Discussed supportive care treatment with fluids, rest and analgesia. - The patient may also use OTC decongestants prn, OTC cough and cold meds as needed, and warm salt water gargles, throat lozenges and/or OTC throat spray as needed. - Contagious dz precautions discussed- including considered contagious until on antibiotics for 24 hours - STREP A MOLECULAR (POC) Debra Stanley TEACHING PROVIDER (Physician/PA/SURFACE PLATE INSPECTOR) NOTE OF PERSONAL INVOLVEMENT IN CARE: I have personally seen and examined the patient and performed the medical decision-making components. I have reviewed the Advanced Practice Registered Nurse (SURFACE PLATE INSPECTOR) Student's documentation and verified the findings in the note as written. Any additions or changes are noted in bold/italics. Signature: Hermelinda Medina Date: 12/25/2024 Time: 4:52 PM [facility] 12-25-2024 History of Presen t illness Narrative Subjective Pt is a 24 y/o female who presents with a sore throat, painful swallowing and a fever x 2 days. Pt has been trying otc tylenol and chloraseptic spray with moderate relief. Pt reports seeing 'white spotting' on tonsils. Sore Throat Pertinent negatives include no congestion, coughing, ear pain or shortness of breath. Review of Systems Constitutional: Positive for chills, fever and malaise/fatigue. HENT: Positive for sore throat. Negative for congestion, ear pain and sinus pain. Eyes: Negative. Respiratory: Negative for cough, sputum production and shortness of breath. Cardiovascular: Negative. Gastrointestinal: Negative. Genitourinary: Negative. Musculoskeletal: Positive for myalgias. Neurological: Negative. BP 144/81 Pulse 113 Temp (!) 39.1 C (102.3 F) Resp 18 Wt 97.4 kg (214 lb 11.7 oz) LMP 05/15/2018 (LMP Unknown) SpO2 97% No past medical history on file. No past surgical history on file. ALLERGIES Patient has no known allergies. MEDICATIONS amoxicillin (AMOXIL) 500 mg capsule Take 1 capsule by mouth two times a day for 10 days. sulfamethoxazole-trimethoprim (BACTRIM,SEPTRA) 200-40 mg/5 mL suspension Take 4 tsp twice daily for 10 days (Patient not taking: Reported on 06/08/2018 ) No family history on file. Social History Tobacco Use Smoking status: Never Passive exposure: Yes Smokeless tobacco: Never Objective Physical Exam Constitutional: General: She is awake. HENT: Head: Normocephalic. Right Ear: Hearing and tympanic membrane normal. Left Ear: Hearing and tympanic membrane normal. Nose: Nose normal. Mouth/Throat: Mouth: Mucous membranes are moist. Pharynx: Pharyngeal swelling and posterior oropharyngeal erythema present. Tonsils: Tonsillar exudate present. Eyes: Conjunctiva/sclera: Conjunctivae normal. Cardiovascular: Rate and Rhythm: Normal rate and regular rhythm. Pulmonary: Effort: Pulmonary effort is normal. Breath sounds: Normal breath sounds. Lymphadenopathy: Cervical: Cervical adenopathy present. Right cervical: Superficial cervical adenopathy present. Left cervical: Superficial cervical adenopathy present. Neurological: Mental Status: She is alert. ASSESSMENT/PLAN: 1. Strep pharyngitis - ICD9: 034.0, ICD10: J02.0 (primary diagnosis) - Rapid Strep positive in the office today - Discussed supportive care treatment with fluids, rest and analgesia. - The patient may also use OTC decongestants prn, OTC cough and cold meds as needed, and warm salt water gargles, throat lozenges and/or OTC throat spray as needed. - Contagious dz precautions discussed- including considered contagious until on antibiotics for 24 hours - AMOXICILLIN 500 MG CAPSULE 2. Sore throat - ICD9: 462, ICD10: J02.9 - Rapid Strep positive in the office today - Discussed supportive care treatment with fluids, rest and analgesia. - The patient may also use OTC decongestants prn, OTC cough and cold meds as needed, and warm salt water gargles, throat lozenges and/or OTC throat spray as needed. - Contagious dz precautions discussed- including considered contagious until on antibiotics for 24 hours - STREP A MOLECULAR (POC) Debra Stanley TEACHING PROVIDER (Physician/PA/SURFACE PLATE INSPECTOR) NOTE OF PERSONAL INVOLVEMENT IN CARE: I have personally seen and examined the patient and performed the medical decision-making components. I have reviewed the Advanced Practice Registered Nurse (SURFACE PLATE INSPECTOR) Student's documentation and verified the findings in the note as written. Any additions or changes are noted in bold/italics. Signature: Hermelinda Medina Date: 12/25/2024 Time: 4:52 PM documented in this encounter [facility] 12-19-2023 Note [facility] Pap Smear Specimen Adequacy December 19, 2023 11:59pm Comment . Satisfactory for evaluation. No endocervical component is identified. Comment on above: Satisfactory for sandra luation. No endocervical component is identified. 10-01-2023 History of Presen t illness Narrative [...] remote redness. Nose: Nose normal. Mouth/Throat: Lips: [place]. Dentition: Abnormal dentition. Dental tenderness and dental [...] of care. This note was generated using [employer] software. It may contain errors in wording, punctuation, or spelling. Jayson Powers APRN.JANITOR CLEANER documented in this encounter [facility] 05-25-2023 History and physi daniel note Note Date/Time May 25, 2023 10:00am [facility] Medical Records Department [address] [place] [id number] History & Physical Exam 05/25/23 0959 MR#: [id number] Acct: [id number] Name: NEO BURR Rep #:[id number] : 2000 22 From: Luci jones MD PCP: Care Physician,No Primary [place] [facility] [place]: [address] HPI - General HPI Narrative NEO BURR, is a 22 F who presents for suction d and c with incomplete miscarriage, bleeding and no FHT seen x 2 ultrasound. [facility] Medical History (Updated 05/25/23 @ 10:[address] Luci Arreguin MD) Accidental fall from building ADHD Anxiety Broken teeth Depression History of pancreatitis Marijuana use MRSA (methicillin resistant Staphylococcus aureus) Non-smoker Umbilical hernia Vaginal delivery Home Medications NK 05/22/23 [History Last Taken Unknown] Allergy/AdvReac Type Severity Reaction Status Date / Time No Known Allergies Allergy Verified 05/23/23 08:16 Social History current occupational status: employed current occupation: [employer] pets and animals: Yes sexually active: Yes Smoking Status: Never smoker second hand exposure: Yes alcohol intake: current details: not while substance use type: marijuana seatbelt use: sometimes additional social history: [place]- unemployed ([place]) ROS Constitutional Constitutional: Reports systems reviewed and no addt'l complaints, except as documented; Denies as per HPI, change in weight, fatigue, fever(s), malaise, weakness or other Eyes Eyes: Reports systems reviewed and no addt'l complaints, except as documented; Denies as per HPI, change in vision or other ENT HEENT: Reports systems reviewed and no addt'l complaints, except as documented Respiratory/Chest Respiratory/Chest: Reports systems reviewed and no addt'l complaints, except as documented Gastrointestinal Gastrointestinal: Reports systems reviewed and no addt'l complaints, except as documented and as per HPI Genitourinary Genitourinary: Reports as per HPI Musculoskeletal Musculoskeletal: Reports systems reviewed and no addt'l complaints, except as documented Neurologic Neurologic: Reports systems reviewed and no addt'l complaints, except as documented Psychiatric Psychiatric: Reports systems reviewed and no addt'l complaints, except as documented Endocrine Endocrinology: Reports systems reviewed and no addt'l complaints, except as documented Hematologic/Lymphatic Hematologic/Lymphatic: Reports systems reviewed and no addt'l complaints, exceptas documented Vital Signs Vital Signs Vital Signs: 05/25/23 08:25 05/25/23 08:25 Temperature 98.1 F Temperature Source Temporal Pulse Rate 73 Respiratory Rate 18 Respiratory Pattern Normal Blood Pressure 126/77 H Blood Pressure Mean 93 Blood Pressure Source Monitor Blood Pressure Position Semi-Fowlers Blood Pressure Location Right Arm Pulse Ox 100 Oxygen Delivery Method Room Air Weight Weight: 211 lb Body Mass Index (BMI) 34.0 Physical Exam Const alert, oriented x3 and no apparent distress HEENT normocephalic Head and Scalp: atraumatic Eyes EOMs intact bilaterally and conjunctivae normal Neck full ROM, no lymphadenopathy, supple and thyroid normal General: trachea midline Lymph Lymphatic: no lymphadenopathy noted Resp normal respiratory effort, no retractions, no use of accessory muscles and clearto auscultation bilaterally Cardio regular rhythm GI normal to inspection, nondistended, normoactive bowel sounds, soft to palpation,non-distended and no masses Inspection: Negative for abdominal distention Back/Spine no CVA tenderness Extremity normal to inspection Skin no rashes or lesions noted Neuro moves all extremities and deep tendon reflexes 2+ bilaterally Psych mental status grossly normal Results Lab / Micro Data 05/25/23 08:15 Labs: Laboratory Results - last 24 hr 05/25/23 08:15: WBC 14.0 H, RBC 4.36, Hgb 12.2, Hct 37.0, MCV 84.9, MCH 28.0, MCHC 33.0, RDW Std Deviation 40.5, RDW Coeff of Omar 13.2, Plt Count 393, MPV 9.5, Immature Gran % (Auto) 0.400, Neut % (Auto) 74.5 H, Lymph % (Auto) 16.8 L, Pacific % (Auto) 7.1, Eos % (Auto) 0.9, Baso % (Auto) 0.3, Absolute Neuts (auto) 10.4 H, Absolute Lymphs (auto) 2.35, Nucleated RBC % 0, Blood Type O POSITIVE, Antibody Screen NEGATIVE Assessment & Plan Assessment/Plan (1) Incomplete : PLAN: Plan After discussing the patient's diagnosis and treatment plan options, patient wishes to proceed with surgical management. I have discussed with the patient the risks, benefits, and alternatives of the procedure which include but are notlimited to risks of anesthesia, bleeding, infection, possible damage to bowel, bladder, or surrounding vasculature which could lead to additional surgery to evaluate any complications. Patient agrees to procedure and wishes to proceed. ACOG/uptodate references given for additional information regarding procedure. 05/25/23 1000 <Electronically signed by Luci Arreguin MD> Cosigner Signature (if applicable): CC: Dr. Luci Arreguin MD; No Primary Care Physician~ Signed [facility] Work Phone: Discharge summary Author Luci Arreguin [facility] May 25, 2023 10:11am Note Date/Time May 25, 2023 10:1 1am [facility] Medical Records Department [address] [place] [address] Instructions for Home/Discharge Instructions 05/25/23 1011 MR#: [id number] Acct: [id number] Name: NEO BURR Rep #:[id number] : 2000 22 From: Luci jones MD PCP: Care Physician,No Primary [place] [facility] Instructions Procedure D&C Diet Discharge Diet: No restrictions Activity Discharge Activity: Return to Normal Activity, May Shower and May Take a Tub Bath (after 1 week) May resume sexual activity in: 1-2 weeks Weight Bearing Status: Weight bearing as tolerated Lifting Restrictions: none Dressing / Incision Call your doctor if you observe: Fever of 101 or Higher, Using more than 1 pad per hour, Shortness of breath and Uncontrolled pain Follow Up Care Please Follow Up With: Luci Arreguin MD When: Call [phone] to schedule appointment. Test Results: Test results from this visit will be discussed in further detail at your follow- up appointment, if applicable. Discharge Plan Admission Attending Provider: Luci Arreguin Primary Care Provider: Care Physician,No Primary Discharge Orders/Prescriptions Prescriptions: No Action NK Referrals / Follow Up: Care Physician,No Primary [Primary Care Provider] - Disposition Disposition (needs filled in before D/C Order can be placed): Home, Self Care 05/25/23 1011<Electronically signed by Luci Arreguin MD>Luci Arreguin MD CC: No Primary Care Physician ~ Signed [facility] Work Phone: Evaluation note* Diagnosis Onset Date Resolution Status Incomplete acute [facility] Work Phone: Evaluation note* Diagnosis Onset Date Resolution Status Incomplete acute Incomplete acute Contraception management acu te Incomplete acute Possible exposure to STD non eactive Postop check noneactive [facility] Work Phone: Evaluation note* Diagnosis Dental infection- Primary Acute apical periodontitis of pulpal origin documented in this encounter [facility] note* Diagnosis Onset Date Resolution Status Possible exposure to STD non eactive Vulval lesion noneactive [facility] Work Phone: Evaluation note* Diagnosis Strep pharyngitis- Primary Streptococcal sore throat Sore throat Acute pharyngitis documented in this encounter [facility] noteNo assessment information availableWLouis [facility] Work Phone: Evaluation note* Diagnosis Worms in stool- Primary Helminth infection, unspecified documented in this encounter [facility] for referral (narrative)No reason for referral information availableWLouis [facility] Work Phone: Summary Purpose Family History No Family History Records FoundNo Family History Records FoundNo Family History Records Found Advance Directives No Advanced Directives Records Found Advance Directive Response Recorded Date/ Time Living Will No May 23, 2023 8:16am Power of Rail Switch Operator No May 23 3 8:16am Advance Directive Response Recorded Date/ Time Living Will No May 23, 2023 7:16am Power of Rail Switch Operator No May 23 3 7:16am Advance Directive Response Recorded Date/ Time Living Will No February 20, 2025 7:58pm Do you have a Healthcare Power of Rail Switch Operator? No February 20, 2025 7:58pm Chief Complaint and Reason for Visit Chief Complaint PREG BLEEDING STAT IRREGULAR BLEEDING miscarriage suction d&c suction d&c Reason for Visit Incomplete Chief Complaint PREG BLEEDING STAT IRREGULAR BLEEDING miscarriage suction d&c suction d&c 2 wk suction d&C Contact with and (suspected) exposure to infection Reason for Visit Incomplete Incomplete Contraception management Incomplete Possible exposure to STD Postop check Chief Complaint std testing/bump in vagina Reason for Visit Possible exposure to STD Vulval lesion Chief Complaint Admit Date L LOWER EXTREMIY February 20, 2025 7:3 8pm Additional Source Comments INFORMATION SOURCE (unrecogn ized section and content) DATE CREATED AUTHOR 05/17/2018 [facility] ([place]) DATE CREATED AUTHOR AUTHOR'S ORGANIZ ATION 02/28/2025 [facility] DATE CREATED AUTHOR AUTHOR'S ORGANIZ ATION 04/01/2025 [facility] Care Teams (unrecognized sec tion and content) Team Status: Active Member Role Status Dates Dr. Avni Stoll MD Family Provider Active No Primary Care Physician Primary Care Provider Active Team Status: Inactive Member Role Status Dates No Primary Care Physician Primary Care Provider, Refer ring Provider Active Dr. Luci Arreguin MD Attending Provider Active Team Status: Active Member Role Status Dates No Primary Care Physician Primary Care Provider Active Dr. Luci Arreguin MD Attending Pr ovider, Referring Provider, Other Provider Active Team Status: Inactive Member Role Status Dates Dr. Norris Fernandez MD Attending Provider, Emergency Provider Active No Primary Care Physician Primary Care Provider Active Team Status: Active Member Role Status Dates No Primary Care Physician Primary Care Provider Active Ro Girard CNM Attending Provider Active Team Status: Inactive Member Role Status Dates No Primary Care Physician Primary Care Provider Active Dr. Luci Arreguin MD Attending Provider, Referr ing Provider Active Team Status: Inactive Member Role Status Dates No Primary Care Physician Primary Care Provider Active Ro Girard CNM Attending Provider Active Team Status: Inactive Member Role Status Dates No Primary Care Physician Primary Care Provider, Refer ring Provider Active Genia Diaz [employer] MECH[employer]IC, [employer]RO[employer]OR MECHANIC-C Attending Provider Active Team Status: Inactive Member Role Status Dates No Primary Care Physician Primary Care Provider Active Genia Diaz [employer] MECHANIC, [employer]RO[employer]OR MECHANIC-C Attending Provider, Referring Provider Active Patrol Agent Relationship Specialty Start Date End Date Sirena Mcneil MD [address] [place] [address] PCP - General Family Medicine 06/07/15 Patrol Agent Relationship Specialty Start Date End Date Sirena Mcneil MD [address] [place], [place] [id number] PCP - General Family Medicine 06/07/15 Team Status: Active Member Role Status Dates No Primary Care Physician Primary Care Provider Active Team Status: Inactive Member Role Status Dates No Primary Care Physician Primary Care Provider Active Start: February 20, 2025 End: February 20, 2025 Dr. Remus Ungur , DO Emergency Provider Active S tart: February 20, 2025 End: February 20, 2025 Patrol Agent Relationship Specialty Start Date End Date Sirena Mcneil MD [address] [place] [address] PCP - General Family Medicine 06/07/15 Source Comments (unrecognize d section and content) In the event this informatio n is protected by the Federal Confidentiality of Alcohol and Drug Abuse Patient Records regulations: The Federal rules restrict any use of the information to criminally investigate or prosecute any alcohol or drug abuse patient.[facility] AdministrationIn the event this information is protected by the Federal Confidentiality of Alcohol and Drug Abuse Patient Records regulations: The Federal rules restrict any use of the information to criminally investigate or prosecute any alcohol or drug abuse patient.[facility] AdministrationIn the event this information is protected by the Federal Confidentiality of Alcohol and Drug Abuse Patient Records regulations: The Federal rules restrict any use of the information to criminally investigate or prosecute any alcohol or drug abuse patient.[facility] Reason for Visit (unrecogniz ed section and content) Reason Comments Dental Problem Possible infection l eft side of mouth, swollen face x 2 days Reason Comments Sore Throat X2 days, fever, body aches Reason Comments Diarrhea Pt states she passed a possible worm yesterday after a BM and also passed another one today. X 1 day Goals (unrecognized section and content) Goals may be documented in a n alternate sectionGoals may be documented in an alternate section FOR RECORDS PERTAINING TO PATIENTS WHO ARE [...] BE BASED ON THE PRIMARY CLINICAL RECORDS. [facility] [employer] [facility]. provides no warranty or guarantee of the accuracy or completeness of information in this document.
--- OUTSIDE RECORDS SUMMARY | 2025-07-06 19:54 | XMS RPT_ITS | CCD ---
Author Organization [facility] Care Team Providers Care Rn Operating Room Name Role Phone VIDHYA QUESADA Unavailable Unavailable SIRENA MCNEIL Unavailable Care Physician, No Primary Primary Care Provider Unavailable Care Physician, No Primary Referring Provider Un available Dr. Luci Arreguin Attending Provider Dr. Luci Arreguin Referring Provider [phone] Dr. Luci Arreguin Other Provider [phone] Emily REEL REPAIRER, MARIELENA Cormier Attending Provider [phone] Sirena Mcneil MD Primary Care Provider Care Physician, No Primary Primary Care Provider Unavailable Care Physician, No Primary Referring Provider Un available Emily REEL REPAIRER, DAVID-Cruzito Cormier Attending Provider [phone] Sirena Mcneil MD Primary Care Provider Care Physician, No Primary Primary Care Provider Unavailable Dr. Jess Coker DO Emergency Provider [phone] Care Physician, No Primary Referring Unava ilable [...] times a day f or 7 days. [place] (Nk) (4 sources) Start: 02-20-2025 [place] (Nk) Active February 20, 2025 12:00am Start: 05-22-2023 [place] (Nk) A ctive May 22, 2023 12:00am [...] Test Name Value Interpretation Reference Range Facility [facility] 03-12-2025 CNOV Office Visit (WSTR) NEO BURR ([id number]) 4 F Date Time Provider Department 03/12/25 4:45 PM POP ARGUETA [facility] During your visit today, we recorded the [...] Order(s):OVA + PARA MICROSCOPIC [SQOVAP] Order #: [id number]. #:[id number] Prescriptions as of 03/12/2025 - sulfamethoxazole-tri methoprim (BACTRIM,SEPTRA) 200-40 mg/5 mL suspension Take 4 tsp twice daily for 10 days Problem List As Of Date: 03/12/2025 (None) Level of Service: OFFICE/OUTPATIENT ESTABLISHED LOW [facility] 20 MIN [35837] Encounter Status:Closed by POP ARGUETA on 03/12/25 Normal [facility] Ankle min 3 Viewson 02-21-20 Ankle min [address] [facility] Imaging Services [address] [place], [place] [id number] Ankle min 3 Views MR#: [id number] Acct: [id number] Name: NEO BURR Prabhu Rep #: [id number] : 2000 F 24 From: Amadou Duran MD PCP: Care Physician,No Primary Status: REG ER Study: Ankle min 3 Views Date of Exam: 02/20/25 Exam# [id number] Ordering Dr: Jess Coker DO PROCEDURE: ANKLE MIN 3 VIEWS 02/20/2025 REASON FOR EXAM: PAIN TECHNIQUE: 3 views of the left ankle COMPARISON: 07/10/2019 FINDINGS: No fracture, dislocation or joint effusion. Appearance of lateral ankle soft tissue swelling. Joint spaces appear within limits. RAD/Ankle min 3 Views IMPRESSION: No fracture, dislocation or joint effusion. Appearance of lateral ankle soft tissue swelling. Reading Location: [id number] CC: Dr. Jess Coker, DO; No Primary Care Physician Health Benefits Specialist: Signed Normal [facility] Emergency Department Summary on 02-20-2025 Emergency Department Summary [facility] Medical Records Department [address] [place] [address] Emergency Department Summary 02/20/25 MR#: [id number] Acct: [id number] Name: NEO BURR Rep #: [id number] : 2000 24 From: Jess Coker DO [...] foot as well. She has been ambulatory. [facility] Medical History Incomplete Broken teeth Depression Marijuana [...] Pereira current occupational status: employed current occupation: [employer] pets and animals: Yes sexually active: Yes [...] lateral mal (more content not included)... Normal [facility] Tibia Fibula 2 Viewson 02-20 Tibia Fibula [address] [facility] Imaging Services [address] [place] [address] Tibia Fibula 2 Views MR#: [id number] Acct: [id number] Name: NEO BURR Rep #: [id number] : 2000 F 24 From: Amadou Duran MD PCP: Care Physician,No Primary Status: REG ER Study: Tibia Fibula 2 Views Date of Exam: 02/20/25 Exam# [id number] Ordering Dr: Jess Coker DO EXAM: Diagnostic tibia fibula two-view x-ray CLINICAL HISTORY: Pain TECHNIQUE: AP and lateral two views of the left tibia and fibula FINDINGS: No fracture. Suggestion of diffuse pretibial soft tissue swelling on the lateral view. RAD/Tibia Fibula 2 Views IMPRESSION: No fracture. Suggestion of diffuse pretibial soft tissue swelling on the lateral view. Reading Location: [id number] CC: Dr. Jess Coker DO; No Primary Care Physician Health Benefits Specialist: Signed Normal [facility] CNOVon 12-25-2024 CNOV Office Visit (UCWSTR) NEO BURR ([id number]) 4 F Date Time Provider Department 12/25/24 5:00 PM HERMELINDA MEDINA UCWSTR During your visit today, we recorded the following information about you: Temperature Pulse Respiration Blood pressure 102.3 degrees 113/minute 18/minute 144/81 Weight 97.4 kg Hermelinda Medina, SENIOR PEOPLESOFT DEVELOPER.CREDIT ADMINISTRATOR 12/25/2024 4:53 PM Signed Subjective Pt is [...] A MOLECULAR (POC) Debra Stanley TEACHING PROVIDER (Physician/PA/SENIOR PEOPLESOFT DEVELOPER) NOTE OF PERSONAL INVOLVEMENT IN CARE: I have personally seen and examined the patient and performed the medical decision-making components. I have reviewed the Advanced Practice Registered Nurse (SENIOR PEOPLESOFT DEVELOPER) Student's documentation and verified the findings in the note as written. Any additions or changes are noted in bold/italics. Signature: Hermelinda Medina Date: 12/25/2024 Time: 4:52 PM Hermelinda Medina APRN.[facility] 12/25/2024 4:52 PM Addendum 1. Strep pharyngitis [...] gargles, throa (more content not included)... Normal [facility] STREP A MOLECULAR (POC)on Interpretation and review of laboratory results Abnormal [facility] Procedural Control Valid [facility] Strep A (POCT) Positive Abnormal Negative [facility] M8200.2100on 05-16-2024 M8200.2100 Chlamydia Trachomatis PCR POSITIVE A Chlamydia trachomatis Normal [facility] Comment on above: Performed By: #### M 8200.2200, M8200.2100 #### [facility] Laboratory [address] [place], [address] M8200.2200on 05-16-2024 M8200.2200 Negative Normal [facility] Comment on above: Performed By: #### M 8200.2200, M8200.2100 #### [facility] [address] [place], [address] [employer] Office Visit Reporton 05-16-2024 [employer] Office Visit Report [facility] [address] [place] [address] OFFICE VISIT Date of Service: 05/16/24 MR#: [id number] Acct: [id number] Name: SARA BURRSamia Pelletier Rep #: [id number] : 2000 Provider: MARIELENA Ulrich Age/Sex: 23/F [place] [facility] Status: Signed Intake Vital Signs 12/19/23 14:10 [...] Period: 05/15/24 Patient : No : No [facility] Medical History Incomplete Broken teeth Depression Marijuana use Non-smoker History of pancreatitis Vaginal delivery Anxiety ADHD Umbilical hernia Accidental fall from building MRSA (methicillin resistant Staphylococcus aureus) Social History (Updated 05/16/24 @ 13:40 by Jyoti Paredes) current occupational status: employed current occupation: [employer] pets and animals: Yes sexually active: Yes [...] Legend 40 live - full term Male [facility] Diann nthony ROS Const ROS Unobtainable: [...] Cosigner Signature: Date (if applicable) CC: Normal [facility] Cervical or vagninal specime n microscopic examination by cytology stain (reported asOrdered By: Genia Diaz on 12-19-2023 Cytology report Cyto stain Doc (Cvx/Vag) Comment . [facility] Comment on above: The Pap smear is [...] Ab+HIV1 p24 Ag IA Ql Non-Reactive Nonreactive [facility] Herpes simplex virus (HSV) t ype 1 IgG antibody assayOrdered By: Genia Diaz on 12-19-2023 HSV 1 IgG Qn (S) 55.60 index 0.00-0.90 [facility] Comment on above: Negative <0.91 Equiv ocal 0.91 - 1.09 Positive >1.09 Note: Negative indicates no antibodies detected to HSV-1. Equivocal may suggest early infection. If clinically appropriate, retest at later date. Positive indicates antibodies detected to HSV-1. Laboratory - CytologyOrdered By: Genia Diaz on 12-19-2023 Front End Assistant Cyto stain Nom (Cvx/Vag) [ID] Comment . [facility] Comment on above: Teddy Lynn totechnologist Laboratory - Miscellaneous t estsOrdered By: Geniakenny Diaz on 12-19-2023 Service comment (Unsp spec) [Interp] . . [facility] No Panel InformationOrdered By: Genia Diaz on 12-19-2023 Human Papillomavirus Screen Comment . [facility] Comment on above: The HPV DNA reflex c riteria were not met with this specimenresult therefore, no HPV testing was performed.Performed at: [facility] [address] [id number] Director: Isidra Jones MD, Phone: [phone] Hepatitis C Antibody Non-Reactive Nonreactive [facility] Comment on above: Non Reactive: < 0.8 Equivocal: >/= 0.8 to < 1.0 Reactive: >/= 1.0The [facility] recommends that a reactive/equivocal HCV antibody result be followed up by the HCV Nucleic Acid Amplificationtest (414396) No Panel Informationon 12-19 POC Trichomonas (Rapid) Positive [facility] Serum Treponema species anti body detectionOrdered By: Genia Diaz on 12-19-2023 Treponema sp Ab Ql (S) Non-Reactive [facility] Serum herpes simplex virus 2 antibody assay by immunoassay (units/volume)Ordered By: Genia Diaz on 12-19-2023 HSV 2 Ab IA Qn (S) < 0.91 index 0.00-0.90 [facility] Comment on above: Negative <0.91 Equiv [...] testing results should be clinically correlated.Performed at: [address] [id number] Director: Tanmay Bender PhD, Phone: [phone] Thin prep Papanicolaou smear with manual screeningOrdered By: Genia Diaz on 12-19-2023 Thin prep Papanicolaou smear with manual screening Comment . [facility] Comment on above: NEGATIVE FOR INTRAEP ITHELIAL LESION OR MALIGNANCY.TRICHOMONAS VAGINALIS IS PRESENT. This liquid based Th inPrep(R) pap test was screened withthe use of an image guided system. Neisseria gonorrhoeae genita l PCROrdered By: Genia Diaz on 06-11-2023 N. gonorrhoeae DNA KIRILL+probe Ql (Genital specimen) [facility] No Panel InformationOrdered By: Genia Diaz on 06-11-2023 Chlamydia trachomatis (PCR) [facility] Absolute lymphocyte countOrd ered By: Luci Arreguin on 05-25-2023 Lymphocytes Auto (Unsp spec) [#/Vol] 2.35 10*3/uL 0.83-4.51 [facility] Basophil percentageOrdered B y: Luci Arreguin on 05-25-2023 Basophils/100 WBC (Bld) 0.3 % 0-1 [facility] Eosinophils/100 WBC (Bld) 0.9 % 0-5 [facility] Neutrophils (Bld) [#/Vol] 10.4 10*3/uL 2.0-7.7 [facility] Neutrophils/100 WBC (Bld) 74.5 % 47-70 [facility] WBC (Bld) [#/Vol] 14.0 10*3/uL 4.4-11.0 [facility] Blood erythrocytes count (nu mber/volume)Ordered By: Luci Arreguin on 05-25-2023 RBC (Bld) [#/Vol] 4.36 10*6/uL 4.2-5.4 [facility] Blood hemoglobin measurement (mass/volume)Ordered By: Luci Arreguin on 05-25-2023 Hemoglobin (Bld) [Mass/Vol] 12.2 g/dL 12.0-15.0 [facility] Blood lymphocytes/100 leukoc ytesOrdered By: Luci Arreguin on 05-25-2023 Lymphocytes/100 WBC (Bld) 16.8 % 19-41 [facility] Blood monocytes/100 leukocyt esOrdered By: Luci Arreguin on 05-25-2023 Monocytes/100 WBC (Bld) 7.1 % 0-10 [facility] Blood platelet mean volumeOr dered By: Luci Arreguin on 05-25-2023 Platelet mean volume (Bld) [Entitic vol] 9.5 fL 6.2-12.0 [facility] Determination of erythrocyte mean corpuscular volume (MCV)Ordered By: Luci Arreguin on 05-25-2023 MCV (RBC) [Entitic vol] 84.9 fL 81-99 [facility] Hematocrit Auto (Bld) [Volum e fraction]Ordered By: Luci Arreguin on 05-25-2023 Hematocrit (Bld) [Volume fraction] 37.0 % 37-47 [facility] Laboratory - Hematology and Cell countsOrdered By: Luci Arreguin on 05-25-2023 Erythrocyte distribution width (RBC) [Entitic vol] 40.5 fL 35.1-43.9 [facility] Erythrocyte distribution width (RBC) [Ratio] 13.2 % 11.6-14.6 [facility] Immature granulocytes/100 WBC (Bld) 0.400 % 0.0-0.9 [facility] Comment on above: IG% - Immature Granu locytes (promyelocytes, myelocytes and metamyelocytes) > 1% indicates that a LEFT SHIFT is Present. MCH (RBC) [Entitic mass] 28.0 pg 27.0-32.0 [facility] Nucleated RBC/100 WBC (Bld) [Ratio] 0 % 0-5 [facility] MCHC Auto (RBC) [Mass/Vol]Or dered By: Luci Rodríguez on 05-25-2023 MCHC (RBC) [Mass/Vol] 33.0 g/dL 32-36 [facility] Platelets bldOrdered By: Zachary Arreguin on 05-25-2023 Platelets (Bld) [#/Vol] 393 10*3/uL 150-450 [facility] Absolute lymphocyte countOrd ered By: Norris Fernandez on 05-08-2023 Lymphocytes Auto (Unsp spec) [#/Vol] 2.33 10*3/uL 0.83-4.51 [facility] Basophil percentageOrdered B y: Norris Fernandez on 05-08-2023 Basophil percentage 0 SEEN /hpf 0-5 [facility] Basophils/100 WBC (Bld) 0.4 % 0-1 [facility] Chloride [Moles/Vol] 110 mmol/L 98-107 [facility] Eosinophils/100 WBC (Bld) 1.0 % 0-5 [facility] Glucose [Mass/Vol] 90 mg/dL 74-106 [facility] Neutrophils (Bld) [#/Vol] 8.5 10*3/uL 2.0-7.7 [facility] Neutrophils/100 WBC (Bld) 70.2 % 47-70 [facility] Potassium [Moles/Vol] 3.9 mmol/L 3.5-5.1 [facility] Sodium [Moles/Vol] 138 mmol/L 136-145 [facility] WBC (Bld) [#/Vol] 12.1 10*3/uL 4.4-11.0 [facility] Bilirubin Test strip Ql (U)O rdered By: Norris Fernandez on 05-08-2023 Bilirubin Ql (U) Negative Negative [facility] Blood erythrocytes count (nu mber/volume)Ordered By: Norris Fernandez on 05-08-2023 RBC (Bld) [#/Vol] 4.61 10*6/uL 4.2-5.4 [facility] Blood hemoglobin measurement (mass/volume)Ordered By: Norris Fernandez on 05-08-2023 Hemoglobin (Bld) [Mass/Vol] 12.9 g/dL 12.0-15.0 [facility] Blood lymphocytes/100 leukoc ytesOrdered By: Norris Fernandez on 05-08-2023 Lymphocytes/100 WBC (Bld) 19.3 % 19-41 [facility] Blood monocytes/100 leukocyt esOrdered By: Norris Fernandez on 05-08-2023 Monocytes/100 WBC (Bld) 8.8 % 0-10 [facility] Blood platelet mean volumeOr dered By: Norris Fernandez on 05-08-2023 Platelet mean volume (Bld) [Entitic vol] 9.7 fL 6.2-12.0 [facility] Determination of erythrocyte mean corpuscular volume (MCV)Ordered By: Norris Fernandez on 05-08-2023 MCV (RBC) [Entitic vol] 87.0 fL 81-99 [facility] Hematocrit Auto (Bld) [Volum e fraction]Ordered By: Norris Fernandez on 05-08-2023 Hematocrit (Bld) [Volume fraction] 40.1 % 37-47 [facility] Ketones Test strip Ql (U)Ord ered By: Norris Fernandez on 05-08-2023 Ketones Ql (U) Negative Negative [facility] Laboratory - Chemistry and C hemistry - challengeOrdered By: Norris Fernandez on 05-08-2023 CO2 [Moles/Vol] 23.0 mmol/L 21.0-32.0 [facility] Urea nitrogen/Creatinine [Mass ratio] 12.4 mg/mg 10-20 [facility] Laboratory - Hematology and Cell countsOrdered By: Norris Fernandez on 05-08-2023 Erythrocyte distribution width (RBC) [Entitic vol] 41.8 fL 35.1-43.9 [facility] Erythrocyte distribution width (RBC) [Ratio] 13.2 % 11.6-14.6 [facility] Immature granulocytes/100 WBC (Bld) 0.300 % 0.0-0.9 [facility] Comment on above: IG% - Immature Granu locytes (promyelocytes, myelocytes and metamyelocytes) > 1% indicates that a LEFT SHIFT is Present. MCH (RBC) [Entitic mass] 28.0 pg 27.0-32.0 [facility] Nucleated RBC/100 WBC (Bld) [Ratio] 0 % 0-5 [facility] MCHC Auto (RBC) [Mass/Vol]Or dered By: Norris Fernandez on 05-08-2023 MCHC (RBC) [Mass/Vol] 32.2 g/dL 32-36 [facility] Mucus LM Ql (Urine sed)Order ed By: Norris Fernandez on 05-08-2023 Mucus Ql (Urine sed) 0 SEEN /hpf [facility] Nitrite Test strip Ql (U)Ord ered By: Norris Fernandez on 05-08-2023 Nitrite Ql (U) Negative Negative [facility] No Panel InformationOrdered By: Norris Fernandez on 05-08-2023 Estimated Creatinine Clearance Calc 147.38 ml/min [facility] Estimated GFR (MDRD) Amer 174 mL/min >60 [facility] Comment on above: GFR Calc Estimated GFR (MDRD) Non-Af Amer 144 mL/min >60 [facility] Comment on above: Non- GFR Calc Platelets bldOrdered By: Willow Fernandez on 05-08-2023 Platelets (Bld) [#/Vol] 396 10*3/uL 150-450 [facility] Protein Test strip Ql (U)Ord ered By: Norris Fernandez on 05-08-2023 Protein Ql (U) 15 mg/dl Negative [facility] Serum or plasma calcium francisca urement (mass/volume)Ordered By: Norris Fernandez on 05-08-2023 Calcium [Mass/Vol] 9.0 mg/dL 8.5-10.1 [facility] Serum or plasma choriogonado tropin detectionOrdered By: Norris Fernandez on 05-08-2023 HCG ( test) Ql 3918 mIU/mL <4 [facility] Comment on above: hCG levels with Gest ational AgeGestational Age hCG mIU/mL (IU/L)0.2 - 1 week 5 - 501-2 weeks 50 - 5002-3 weeks 100 - 36502-9 weeks 500 - 759217-3 weeks 1000 - 702540-4 weeks 01583 - 100,0006-8 weeks 69292 - 200,0002-3 months 33169 - 100,000 Serum or plasma creatinine m easurement (mass/volume)Ordered By: Norris Fernandez on 05-08-2023 Creatinine [Mass/Vol] 0.57 mg/dL 0.55-1.02 [facility] Comment on above: The validity of the calculated GFR & GFRAA in patients over 70 years has not been determined. Clinical correlation is essential. Serum or plasma urea nitroge n measurement (mass/volume)Ordered By: Norris Fernnadez on 05-08-2023 Urea nitrogen [Mass/Vol] 7 mg/dL 7-18 [facility] Squamous epithelial cells de tection in urine sediment by light microscopyOrdered By: Norris Fernandez on 05-08-2023 Epithelial cells.squamous LM Ql (Urine sed) 0-5 SEEN /hpf 5-10 [facility] Thin prep Papanicolaou smear with manual screeningOrdered By: Norris Fernandez on 05-08-2023 Thin prep Papanicolaou smear with manual screening 5 5-15 [facility] Urine blood detectionOrdered By: Norris Fernandez on 05-08-2023 RBC Ql (U) 50 /ul Negative [facility] RBC Ql (U) 0-5 SEEN /hpf 0-5 [facility] Urine clarityOrdered By: Willow Fernandez on 05-08-2023 Clarity (U) Clear Clear [facility] Urine color determinationOrd ered By: Norris Fernandez on 05-08-2023 Color (U) Yellow Yellow [facility] Urine glucose detectionOrder ed By: Norris Fernandez on 05-08-2023 Glucose Ql (U) Normal mg/dl Normal [facility] Urine leukocyte esterase det ection by dipstickOrdered By: Norris Fernandez on 05-08-2023 Leukocyte esterase Test strip Ql (U) Negative Negative [facility] Urine pHOrdered By: Norris ospina on 05-08-2023 pH (U) 7.0 [pH] 5.0 - 8.0 [facility] Urine sediment bacteria coun t by microscopy (number/high power field)Ordered By: Norris Fernandez on 05-08-2023 Bacteria LM.HPF (Urine sed) [#/Area] RARE /hpf None Seen [facility] Urine specific gravity measu rementOrdered By: Norris Fernandez on 05-08-2023 Specific gravity (U) [Rel density] 1.010 1.002-1.030 [facility] Urobilinogen Auto test strip Ql (U)Ordered By: Norris Fernandez on 05-08-2023 Urobilinogen Ql (U) Normal mg/dl Normal [facility] ED Note-Provideron 8 ED Note-Provider Normal [facility] ([place]) Pat Eduon 01-31-2018 Pat Edu Normal [facility] [place] Patient Summary Documentson 01-31-2018 Patient Summary Documents Normal [facility] ([place] Vital Signs Date Time Vital Sign Value Performing Clinician Facility 03-12-2025 16:51-0400 Body temperature 98.6 [degF] Pop Argueta MD Work Phone: [facility] 03-12-2025 16:51-0400 Body weight 99 kg Pop Argueta MD Work Phone: [facility] 03-12-2025 16:51-0400 Diastolic blood pressure 74 mm[Hg] Pop Argueta MD Work Phone: [facility] 03-12-2025 16:51-0400 Heart rate 65 /min Pop Argueta MD Work Phone: [facility] 03-12-2025 16:51-0400 Respiratory rate 20 /min Pop Argueta MD Work Phone: [facility] 03-12-2025 16:51-0400 SaO2% (BldA) [Mass fraction] 98 % Pop Argueta MD Work Phone: [facility] 03-12-2025 16:51-0400 Systolic blood pressure 121 mm[Hg] Pop Argueta MD Work Phone: [facility] 02-20-2025 20:18-0400 Body temperature 98.2 [degF] No Primary Care Physician [facility] 02-20-2025 20:18-0400 Diastolic blood pressure 60 mm[Hg] No Primary Care Physician [facility] 02-20-2025 20:18-0400 Heart rate 65 /min No Primary Care Physician [facility] 02-20-2025 20:18-0400 Respiratory rate 16 /min No Primary Care Physician [facility] 02-20-2025 20:18-0400 SaO2% (BldA) [Mass fraction] 98 % No Primary Care Physician [facility] 02-20-2025 20:18-0400 Systolic blood pressure 130 mm[Hg] No Primary Care Physician [facility] 02-20-2025 19:38-0400 Body height 167.64 cm No Primary Care Physician [facility] 02-20-2025 19:38-0400 Body mass index (BMI) [Ratio] 35.3 kg/m2 No Primary Care Physician [facility] 02-20-2025 19:38-0400 Body weight 99.2 kg No Primary Care Physician [facility] 12-25-2024 16:32-0500 Body temperature 102.31 [degF] Hermelinda Praisler-Wood SENIOR [employer] DEVELOPER.CREDIT ADMINISTRATOR Work Phone: [facility] 12-25-2024 16:32-0500 Body weight 97.4 kg Hermelinda Praisler-Wood SENIOR [employer] DEVELOPER.CREDIT ADMINISTRATOR Work Phone: [facility] 12-25-2024 16:32-0500 Diastolic blood pressure 81 mm[Hg] Hermelinda Praisler-Wood SENIOR [employer] DEVELOPER.CREDIT ADMINISTRATOR Work Phone: [facility] 12-25-2024 16:32-0500 Heart rate 113 /min Hermelinda Praisler-Wood SENIOR [employer] DEVELOPER.CREDIT ADMINISTRATOR Work Phone: [facility] 12-25-2024 16:32-0500 Respiratory rate 18 /min Hermelinda Praisler-Wood SENIOR [employer] DEVELOPER.CREDIT ADMINISTRATOR Work Phone: [facility] 12-25-2024 16:32-0500 SaO2% (BldA) [Mass fraction] 97 % Hermelinda Praisler-Wood SENIOR [employer] DEVELOPER.CREDIT ADMINISTRATOR Work Phone: [facility] 12-25-2024 16:32-0500 Systolic blood pressure 144 mm[Hg] Hermelinda Praisler-Wood SENIOR [employer] DEVELOPER.CREDIT ADMINISTRATOR Work Phone: [facility] 12-19-2023 14:10-0500 Body height 167.64 cm No Primary Care Physician [facility] 12-19-2023 14:04-0500 Body mass index (BMI) [Ratio] 31.8 kg/m2 No Primary Care Physician [facility] 12-19-2023 14:04-0500 Body weight 89.35 kg No Primary Care Physician [facility] 12-19-2023 14:04-0500 Diastolic blood pressure 84 mm[Hg] No Primary Care Physician [facility] 12-19-2023 14:04-0500 Systolic blood pressure 122 mm[Hg] No Primary Care Physician [facility] 10-01-2023 17:43-0500 Body temperature 97.9 [degF] Jayson Powers SENIOR PEOPLESOFT DEVELOPER.CREDIT ADMINISTRATOR Work Phone: [facility] 10-01-2023 17:43-0500 Body weight 91.54 kg Jayson Powers SENIOR PEOPLESOFT DEVELOPER.CREDIT ADMINISTRATOR Work Phone: [facility] 10-01-2023 17:43-0500 Diastolic blood pressure 72 mm[Hg] Jayson Powers SENIOR PEOPLESOFT DEVELOPER.CREDIT ADMINISTRATOR Work Phone: [facility] 10-01-2023 17:43-0500 Heart rate 92 /min Jayson Powers SENIOR PEOPLESOFT DEVELOPER.CREDIT ADMINISTRATOR Work Phone: [facility] 10-01-2023 17:43-0500 Respiratory rate 21 /min Jayson Powers SENIOR PEOPLESOFT DEVELOPER.CREDIT ADMINISTRATOR Work Phone: [facility] 10-01-2023 17:43-0500 SaO2% (BldA) [Mass fraction] 99 % Jayson Powers SENIOR PEOPLESOFT DEVELOPER.CREDIT ADMINISTRATOR Work Phone: [facility] 10-01-2023 17:43-0500 Systolic blood pressure 110 mm[Hg] Jayson Powers SENIOR PEOPLESOFT DEVELOPER.CREDIT ADMINISTRATOR Work Phone: [facility] 06-11-2023 11:49-0400 Body height 167.64 cm No Primary Care Physician [facility] 06-11-2023 11:48-0400 Body mass index (BMI) [Ratio] 33.4 kg/m2 No Primary Care Physician [facility] 06-11-2023 11:48-0400 Body weight 94 kg No Primary Care Physician [facility] 06-11-2023 11:48-0400 Diastolic blood pressure 82 mm[Hg] No Primary Care Physician [facility] 06-11-2023 11:48-0400 Systolic blood pressure 127 mm[Hg] No Primary Care Physician [facility] 05-25-2023 12:08-0400 Body temperature 98.2 [degF] No Primary Care Physician [facility] 05-25-2023 12:08-0400 Diastolic blood pressure 54 mm[Hg] No Primary Care Physician [facility] 05-25-2023 12:08-0400 Heart rate 60 /min No Primary Care Physician [facility] 05-25-2023 12:08-0400 Respiratory rate 16 /min No Primary Care Physician [facility] 05-25-2023 12:08-0400 SaO2% (BldA) [Mass fraction] 98 % No Primary Care Physician [facility] 05-25-2023 12:08-0400 Systolic blood pressure 119 mm[Hg] No Primary Care Physician [facility] 05-25-2023 08:25-0400 Body height 167.64 cm No Primary Care Physician [facility] 05-25-2023 08:25-0400 Body mass index (BMI) [Ratio] 34 kg/m2 No Primary Care Physician [facility] 05-25-2023 08:25-0400 Body weight 95.7 kg No Primary Care Physician [facility] 05-22-2023 08:23-0400 Body mass index (BMI) [Ratio] 34.4 kg/m2 No Primary Care Physician [facility] 05-22-2023 08:23-0400 Body weight 96.72 kg No Primary Care Physician [facility] 05-22-2023 08:23-0400 Diastolic blood pressure 62 mm[Hg] No Primary Care Physician [facility] 05-22-2023 08:23-0400 Systolic blood pressure 102 mm[Hg] No Primary Care Physician [facility] 05-08-2023 13:58-0400 Body mass index (BMI) [Ratio] 33.9 kg/m2 No Primary Care Physician [facility] 05-08-2023 13:58-0400 Body weight 95.3 kg No Primary Care Physician [facility] 05-08-2023 13:19-0400 Body temperature 95.2 [degF] No Primary Care Physician [facility] 05-08-2023 13:19-0400 Diastolic blood pressure 79 mm[Hg] No Primary Care Physician [facility] 05-08-2023 13:19-0400 Heart rate 64 /min No Primary Care Physician [facility] 05-08-2023 13:19-0400 Respiratory rate 18 /min No Primary Care Physician [facility] 05-08-2023 13:19-0400 SaO2% (BldA) [Mass fraction] 99 % No Primary Care Physician [facility] 05-08-2023 13:19-0400 Systolic blood pressure 129 mm[Hg] No Primary Care Physician [facility] Encounters Encounter Date Encounter Type Care Provider Facility Start: 03-12-2025 End: 03-12-2025 Office outpatient visit 15 minutes Pop Argueta MD Work Phone: [facility] Comment on above: Worms in stool (Prim kishor Dx) Start: 03-12-2025 End: 03-12-2025 ambulatory SIRENA MCNEIL Facility:[facility] Start: 02-20-2025 End: 02-20-2025 Emergency department patient visit No Primary Care Physician -Emergency Department Work Phone: Start: 12-25-2024 End: 12-25-2024 Office outpatient visit 15 minutes Hermelinda Medina APRN.CNP Work Phone: [facility] Comment on above: Strep pharyngitis (P rimary Dx); Sore throat Start: 12-25-2024 End: 12-25-2024 ambulatory SIRENA MCNEIL Facility:[facility] Start: 07-02-2024 ambulatory No Primary Car e Physician Facility:[facility] Start: 05-16-2024 End: 05-16-2024 ambulatory No Primary Care Physician Facility:[facility] Start: 05-16-2024 End: 05-16-2024 ambulatory No Primary Care Physician Facility:[facility] Start: 12-19-2023 End: 12-19-2023 ambulatory No Primary Care Physician [facility] Work Phone: Start: 12-19-2023 End: 12-19-2023 Patient encounter procedure No Primary Care Physician [facility] Work Phone: Start: 10-01-2023 End: 10-01-2023 Office outpatient visit 25 minutes Jayson Nunezkari CRAIG.CREDIT ADMINISTRATOR Work Phone: [facility] Comment on above: Dental infection (Pr imary Dx) Start: 06-11-2023 End: 06-11-2023 ambulatory No Primary Care Physician [facility] Work Phone: Start: 06-11-2023 End: 06-11-2023 Patient encounter procedure No Primary Care Physician [facility]-Laboratory, Specimen Work Phone: Start: 06-11-2023 End: 06-11-2023 Patient encounter procedure No Primary Care Physician [facility] Work Phone: Start: 05-25-2023 Non-patient / Non-visit No [facility] Physician [facility] Start: 05-25-2023 End: 05-25-2023 Admission to same day surgery center No Primary Care Physician [facility]-Surgical Day Care Start: 05-25-2023 End: 05-25-2023 ambulatory No Primary Care Physician [facility] Work Phone: Start: 05-22-2023 End: 05-22-2023 Patient encounter procedure No Primary Care Physician [facility] Work Phone: Start: 05-21-2023 End: 05-21-2023 ambulatory No Primary Care Physician [facility] Work Phone: Start: 05-21-2023 End: 05-21-2023 Patient encounter procedure No Primary Care Physician [facility]-Ultrasound, [facility] Work Phone: Start: 05-08-2023 End: 05-08-2023 Emergency department patient visit No Primary Care Physician [facility]-Emergency Department Work Phone: Start: 01-31-2018 End: 01-31-2018 [...] P,Tdap,Td Vaccine (10 - Td or Tdap) [facility] Start: 02-20-2025 [facility] Start: 07-27-2024 Covid-19 Vaccine ( season) Covid-19 Vaccine ( season) [facility] Start: 07-27-2024 Influenza vaccination Influenza Vacc ine (#1) [facility] Start: 12-19-2023 Herpes Simplex Virus Culture Herpes Simplex Virus Culture [facility] Start: 12-19-2023 Chlamydia deoxyribon ucleic acid detection [facility] Start: 12-19-2023 Herpes simplex virus identified in Unspecified specimen by Organism specific culture [facility] Start: 12-19-2023 Liquid based cervica l cytology screening [facility] Start: 2023 Pap Testing Pap Testing [facility] Start: 2023 Screening for malign ant neoplasm of cervix Cervical Cancer Screening [facility] Start: 07-27-2023 Influenza vaccination Influenza Vacc ine (#1) [facility] Start: 05-25-2023 Anesthesia incomplete/missed ANESTH INC/MISSED AB PROC [facility] Start: 05-25-2023 Tx incomplete aborti on any trimester surgical TREATMENT OF MISCARRIAGE [facility] Start: 05-25-2023 Ambulation without limitation [facility] Start: 05-25-2023 Medical regimen orde rs management [facility] Start: 05-25-2023 Medication education [facility] Start: 05-25-2023 Patient discharge [facility] Start: 05-25-2023 Procedure discontinued [facility] Start: 05-25-2023 Taking patient vital signs [facility] Start: 05-25-2023 Vital signs measurements [facility] Start: 05-25-2023 [facility] Start: 11-26-2022 Depression Assessment Depression Ass essment [facility] Start: 2020 Anxiety Screening Anxiety Screening [facility] Start: 2020 Chlamydia Screening (1824) Chlamydia Screening (18-24) [facility] Start: 2020 Depression Screening Depression Scre ening [facility] Start: 2020 GC (Gonorrhea) Scree cesia (18-24) GC (Gonorrhea) Screening (18-24) [facility] Start: 2020 Hepatitis C Screening Hepatitis C [facility] Start: 2020 Hepatitis C screening Hepatitis C [facility] Start: 2020 HIV Screening HIV Screening [facility] Start: 2020 HIV screening HIV Screening [facility] Start: 2020 Screening for Chlamy gucci trachomatis Chlamydia Screening (18) [facility] Start: 2018 Meningococcal B Vacc ine (1 of 2 - Standard) Meningococcal B Vaccine (1 of 2 - Standard) [facility] Start: 2018 Meningococcal B Vacc ine: Consider Based On Risk (1 of 2 - Patient Seeks Protection) Meningococcal B Vaccine: Consider Based On Risk (1 of 2 - Patient Seeks Protection) [facility] Start: 2016 Peds To Adult Transi tion Annual Assessment Peds To Adult Transition Annual Assessment [facility] Start: 01-26-2016 HPV Vaccine (2 - 2-d ose series) HPV Vaccine (2 - 2-dose series) [facility] Start: 2014 Peds To Adult Transi tion Initial Discussion Peds To Adult Transition Initial Discussion [facility] Start: 03-29-2003 Covid-19 Vaccine (#1) Covid-19 Vacci ne (#1) [facility] Chlamydia deoxyribon ucleic acid detection [facility] Herpes simplex virus identified in Unspecified specimen by Organism specific culture [facility] Neisseria gonorrhoea e rRNA [Presence] in Unspecified specimen by KIRILL with probe detection [facility] Ova and parasites identified in Unspecified specimen by Light microscopy OVA + PARA MICROSCOPIC Microbiology Routine Worms in stool Ordered: 03/12/2025 [facility] Work Phone: Comment on above: Ordered: 03/12/2025 Patient Education [facility] Work Phone: Patient referral [facility] Work Phone: PCR test for Chlamyd ia trachomatis [facility] Immunizations Immunization Date Immunization Notes Care Provider [facility] 04-02-2020 diphtheria, tetanus toxoids and acellular pertussis vaccine, unspecified formulation Hermelinda Medina APRN.CREDIT ADMINISTRATOR Work Phone: [facility] 04-02-2020 tetanus toxoid, redu livia diphtheria toxoid, and acellular pertussis vaccine, adsorbed No Primary Care Physician [facility] 07-10-2019 tetanus toxoid, redu livia diphtheria toxoid, and acellular pertussis vaccine, adsorbed No Primary Care Physician [facility] 07-28-2015 human papilloma viru s vaccine, quadrivalent Hermelinda Medina APRN.CREDIT ADMINISTRATOR Work Phone: [facility] 07-28-2015 meningococcal polysaccharide (groups A, C, Y and W-135) diphtheria toxoid conjugate vaccine (MCV4P) Hermelinda Medina APRN.CREDIT ADMINISTRATOR Work Phone: [facility] 07-28-2015 tetanus toxoid, redu livia diphtheria toxoid, and acellular pertussis vaccine, adsorbed Hermelinda Medina APRN.CREDIT ADMINISTRATOR Work Phone: [facility] 08-07-2011 influenza, seasonal, injectable, preservative free Hermelinda Medina APRN.CREDIT ADMINISTRATOR Work Phone: [facility] 08-07-2011 influenza virus vacc ine, unspecified formulation Jayson Powers SENIOR PEOPLESOFT DEVELOPER.CREDIT ADMINISTRATOR Work Phone: [facility] 06-07-2007 DTaP-hepatitis B and poliovirus vaccine Hermelinda Medina APRN.CREDIT ADMINISTRATOR Work Phone: [facility] 06-07-2007 hepatitis A vaccine, pediatric/adolescent dosage, 2 dose schedule Hermelinda Medina SENIOR PEOPLESOFT DEVELOPER.CREDIT ADMINISTRATOR Work Phone: [facility] 06-07-2007 measles, mumps and rubella virus vaccine Hermelinda Medina SENIOR PEOPLESOFT DEVELOPER.CREDIT ADMINISTRATOR Work Phone: [facility] 08-24-2006 hepatitis A vaccine, pediatric/adolescent dosage, 2 dose schedule Hermelinda Medina SENIOR PEOPLESOFT DEVELOPER.CREDIT ADMINISTRATOR Work Phone: [facility] 12-19-2005 diphtheria, tetanus toxoids and acellular pertussis vaccine, unspecified formulation Hermelinda Medina APRN.CREDIT ADMINISTRATOR Work Phone: [facility] 12-19-2005 pneumococcal conjuga te vaccine, 7 valent Hermelinda Medina SENIOR PEOPLESOFT DEVELOPER.CREDIT ADMINISTRATOR Work Phone: [facility] 05-16-2004 diphtheria, tetanus toxoids and acellular pertussis vaccine, unspecified formulation Hermelinda Medina SENIOR PEOPLESOFT DEVELOPER.CREDIT ADMINISTRATOR Work Phone: [facility] 05-16-2004 haemophilus influenz ae type b vaccine, conjugate unspecified formulation Hermelinda Medina APRN.CREDIT ADMINISTRATOR Work Phone: [facility] 05-16-2004 measles, mumps and rubella virus vaccine Hermelinda Medina SENIOR PEOPLESOFT DEVELOPER.CREDIT ADMINISTRATOR Work Phone: [facility] 05-16-2004 poliovirus vaccine, unspecified formulation Hermelinda Medina SENIOR PEOPLESOFT DEVELOPER.CREDIT ADMINISTRATOR Work Phone: [facility] 07-20-2003 diphtheria, tetanus toxoids and acellular pertussis vaccine, unspecified formulation Hermelinda Medina SENIOR PEOPLESOFT DEVELOPER.CREDIT ADMINISTRATOR Work Phone: [facility] 07-20-2003 haemophilus influenz ae type b conjugate and Hepatitis B vaccine Hermelinda Medina SENIOR PEOPLESOFT DEVELOPER.CREDIT ADMINISTRATOR Work Phone: [facility] 07-20-2003 pneumococcal conjuga te vaccine, 7 valent Hermelinda Arias-Wood SENIOR PEOPLESOFT DEVELOPER.CREDIT ADMINISTRATOR Work Phone: [facility] 07-20-2003 poliovirus vaccine, inactivated Hermelindalaurent Arias-Wood SENIOR PEOPLESOFT DEVELOPER.CREDIT ADMINISTRATOR Work Phone: [facility] 02-27-2003 diphtheria, tetanus toxoids and acellular pertussis vaccine, unspecified formulation Hermelinda Medina SENIOR PEOPLESOFT DEVELOPER.CREDIT ADMINISTRATOR Work Phone: [facility] 02-27-2003 haemophilus influenz ae type b conjugate and Hepatitis B vaccine Hermelinda Arias-Arnaldo SENIOR PEOPLESOFT DEVELOPER.CREDIT ADMINISTRATOR Work Phone: [facility] 02-27-2003 pneumococcal conjuga te vaccine, 7 valent Hermelinda Arias-Arnaldo SENIOR PEOPLESOFT DEVELOPER.CREDIT ADMINISTRATOR Work Phone: [facility] 02-27-2003 poliovirus vaccine, inactivated Hermelinda Arias-Arnaldo SENIOR PEOPLESOFT DEVELOPER.CREDIT ADMINISTRATOR Work Phone: [facility] 2002 hepatitis B vaccine, pediatric or pediatric/adolescent dosage Hermelinda Arias-Arnaldo SENIOR PEOPLESOFT DEVELOPER.CREDIT ADMINISTRATOR Work Phone: [facility] Payers Date Payer Category Payer Self-pay [id number] 2022 Medicaid [id number] 2008 Unknown [id number] Unknown [id number] Unknown [id number] Unknown [id number] Unknown [id number] Social History Date Type Detail Facility [facility] Start: 05-23-2023 End: 12-19-2023 Tobacco smoking status NHIS Unknown if ever smoked [facility] Start: 2000 Sex Assigned At Female [facility] Start: 10-01-2023 Tobacco smoking status NHIS Never smoked tobacco [facility] History of tobacco use Passive smoker [facility] Start: 10-01-2023 Tobacco use and exposure Smokeless tobacco non-user [facility] Start: 10-01-2023 End: 03-12-2025 Alcohol intake Not Asked [facility] Start: 11-03-2020 End: 10-01-2023 History of Social function [facility] Start: 11-03-2020 End: 10-01-2023 Tobacco use panel [facility] National Score (1-100), lower number is lower risk Not on file [facility] Start: 2000 Sex Assigned At Not on file [facility] Start: 02-20-2025 Tobacco smoking status NHIS Smokes tobacco daily (finding) [facility] Start: 02-20-2025 Sex Female (finding) [facility] NEGATED: Highlighted row [facility] Goals Date Patient Goal Desired Activity /State Functional Status Date Assessment Result Facility 06-07-2015 Are you deaf, or do you have serious difficulty hearing No 06/07/2015 6:41 PM ERNESTINAT Deja Live MA No [facility] 06-07-2015 Are you blind, or do you have serious difficulty seeing, even when wearing glasses No 06/07/2015 6:41 PM ERNESTINAT Deja Live MA No [facility] 06-07-2015 Do you have serious difficulty walking or climbing stairs No 06/07/2015 6:41 PM EDT Deja Live MA No [facility] 06-07-2015 Do you have difficul ty dressing or bathing No 06/07/2015 6:41 PM EDT Deja Live MA No [facility] Mental Status Date Assessment Result Facility 05-25-2023 Cognitive function Voice/Name [facility] Work Phone: 06-07-2015 Because of a physica l, mental, or emotional condition, do you have serious difficulty concentrating, remembering, or making decisions No 06/07/2015 6:41 PM EDT Deja Live MA No [facility] Clinical Notes 05-25-2023 to 03-12-2025 Pop Argueta MD - 03/12/2025 5:00 PM EDTPatient InstructionsPramyrna-Hermelinda Mcintosh, SENIOR PEOPLESOFT DEVELOPER.CREDIT ADMINISTRATOR - 12/25/2024 4:42 PM Jayson Beebe, SENIOR PEOPLESOFT DEVELOPER.CREDIT ADMINISTRATOR - 10/01/2023 5:46 PM EST Note Date & Type Note Facility 03-12-2025 Note HNO ID: [id number] Author: POP ARGUETA MD Service: ? Author [...] per rectum - tapeworm or ascaris Procedures [facility] 03-12-2025 History of Presen t illness [...] or ascaris Procedures documented in this encounter [facility] 02-20-2025 Radiology Diagnostic study note [facility] Imaging Services [address] [place], [place] [id number] Tibia & Fibula 2 Views MR#: [id number] Acct: [id number] Name: NEO BURR Rep #: [id number] : 2000 F 24 From: Gonzalez Duran MD PCP: Care Physician,No Primary Status: REG ER Study:Tibia & Fibula 2 Views Date of Exam: 02/20/25 Exam# [id number] Ordering Dr: Amaya Coker DO EXAM: Diagnostic tibia fibula two-view x-ray CLINICAL HISTORY: Pain TECHNIQUE: AP and lateral two views of the left tibia and fibula FINDINGS: No fracture. Suggestion of diffuse pretibial soft tissue swelling on the lateral view. RAD/Tibia & Fibula 2 Views IMPRESSION: No fracture. Suggestion of diffuse pretibial soft tissue swelling on the lateral view. Reading Location: [facility] CC: Dr. Jess Coker DO; No Primary Care Physician ~ Health Benefits Specialist: Signed [facility] 02-20-2025 Radiology Diagnostic study note [facility] Imaging Services [address] [place] [address] Ankle min 3 Views MR#: [id number] Acct: [id number] Name: NEO BURR Rep #: [id number] : 2000 F 24 From: Gonzalez Duran MD PCP: Care Physician,No Primary Status: REG ER Study:Ankle min 3 Views Date of Exam: Exam# [id number] Ordering Dr: Amaya Coker DO PROCEDURE: ANKLE MIN 3 VIEWS 02/20/2025 REASON FOR EXAM: PAIN TECHNIQUE: 3 views of the left ankle COMPARISON: 07/10/2019 FINDINGS: No fracture, dislocation or joint effusion. Appearance of lateral ankle soft tissue swelling. Joint spaces appear within limits. RAD/Ankle min 3 Views IMPRESSION: No fracture, dislocation or joint effusion. Appearance of lateral ankle soft tissue swelling. Reading Location: [id number] CC: Dr. Jess Coker DO; No Primary Care Physician ~ Health Benefits Specialist: Signed [facility] 12-25-2024 Instructions Hermelinda Medina APRN.[facility] - 12/25/2024 4:49 PM EST 1. Strep [...] inability to swallow. documented in this encounter [facility] 12-25-2024 Note HNO ID: [id number] Author: HERMELINDA MEDINA APRN.CREDIT ADMINISTRATOR Service: ? Author Type: Nurse Practitioner Type: [...] A MOLECULAR (POC) Debra Stanley TEACHING PROVIDER (Physician/PA/SENIOR PEOPLESOFT DEVELOPER) NOTE OF PERSONAL INVOLVEMENT IN CARE: I have personally seen and examined the patient and performed the medical decision-making components. I have reviewed the Advanced Practice Registered Nurse (SENIOR PEOPLESOFT DEVELOPER) Student's documentation and verified the findings in the note as written. Any additions or changes are noted in bold/italics. Signature: Hermelinda Medina Date: 12/25/2024 Time: 4:52 PM [facility] 12-25-2024 History of Presen t illness [...] A MOLECULAR (POC) Debra Stanley TEACHING PROVIDER (Physician/PA/SENIOR PEOPLESOFT DEVELOPER) NOTE OF PERSONAL INVOLVEMENT IN CARE: I have personally seen and examined the patient and performed the medical decision-making components. I have reviewed the Advanced Practice Registered Nurse (SENIOR PEOPLESOFT DEVELOPER) Student's documentation and verified the findings in the note as written. Any additions or changes are noted in bold/italics. Signature: Hermelinda Medina Date: 12/25/2024 Time: 4:52 PM documented in this encounter [facility] 12-19-2023 Note [facility] Pap Smear Specimen Adequacy December 19, 2023 [...] remote redness. Nose: Nose normal. Mouth/Throat: Lips: [place]. Dentition: Abnormal dentition. Dental tenderness and dental [...] of care. This note was generated using [email or web address] software. It may contain errors in wording, punctuation, or spelling. Jayson Powers APRN.CREDIT ADMINISTRATOR documented in this encounter [facility] 05-25-2023 History and physi daniel note Note Date/Time May 25, 2023 10:00am [facility] Medical Records Department [address] [place] [id number] History & Physical Exam 05/25/23 0959 MR#: [id number] Acct: [id number] Name: NEO BURR Rep #:[id number] : 2000 22 From: Luci jones MD PCP: Care Physician,No Primary Status :[facility] Location: [address] HPI - General HPI Narrative NEO BURR, is a 22 F who presents for suction d and c with incomplete miscarriage, bleeding and no FHT seen x 2 ultrasound. [facility] Medical History (Updated 05/25/23 @ 10:00 by [...] 74.5 H, Lymph % (Auto) 16.8 L, [place] % (Auto) 7.1, Eos % (Auto) 0.9, [...] Arreguin MD; No Primary Care Physician~ Signed [facility] Work Phone: Discharge summary Author Luci Arreguin [facility] May 25, 2023 10:11am Note Date/Time May 25, 2023 10:1 1am [facility] Medical Records Department [address] [place] [address] Instructions for Home/Discharge Instructions 05/25/23 1011 MR#: [id number] Acct: [id number] Name: NEO BURR Rep #:[id number] : 2000 22 From: Luci jones MD PCP: Care Physician,No Primary Status :[facility] Discharge Instructions Procedure D&C Diet Discharge Diet: [...] Up With: Luci Arreguin MD When: Call [phone] to schedule appointment. Test Results: Test results [...] CC: No Primary Care Physician ~ Signed [facility] Work Phone: Evaluation note* Diagnosis Onset Date Resolution Status Incomplete acute [facility] Work Phone: Evaluation note* Diagnosis Onset Date Resolution Status Incomplete acute Incomplete acute Contraception management acu te Incomplete acute Possible exposure to STD non eactive Postop check noneactive [facility] Work Phone: Evaluation note* Diagnosis Dental infection- Primary Acute apical periodontitis of pulpal origin documented in this encounter [facility] note* Diagnosis Onset Date Resolution Status Possible exposure to STD non eactive Vulval lesion noneactive [facility] Work Phone: Evaluation note* Diagnosis Strep pharyngitis- Primary Streptococcal sore throat Sore throat Acute pharyngitis documented in this encounter [facility] noteNo assessment information availableWPremier [facility] Work Phone: Evaluation note* Diagnosis Worms in stool- Primary Helminth infection, unspecified documented in this encounter [facility] for referral (narrative)No reason for referral information availableWPremier Health Work Phone: Summary Purpose Family History No Family History Records FoundNo Family History Records FoundNo Family History Records Found Advance Directives No Advanced Directives Records Found Advance Directive Response Recorded Date/ Time Living Will No May 23, 2023 8:16am Power of Salvage Winder No May 23 3 8:16am Advance Directive Response Recorded Date/ Time Living Will No May 23, 2023 7:16am Power of Salvage Winder No May 23 3 7:16am Advance Directive Response Recorded Date/ Time Living Will No February 20, 2025 7:58pm Do you have a Healthcare Power of Salvage Winder? No February 20, 2025 7:58pm Chief Complaint [...] section and content) DATE CREATED AUTHOR 05/17/2018 [facility] ([place]) DATE CREATED AUTHOR AUTHOR'S ORGANIZ ATION 02/28/[address] [facility] DATE CREATED AUTHOR AUTHOR'S ORGANIZ ATION 04/01/2025 [facility] Care Teams (unrecognized sec tion and [...] Provider, Refer ring Provider Active Genia Diaz REEL REPAIRER, REEL REPAIRER-C Attending Provider Active Team Status: Inactive Member Role Status Dates No Primary Care Physician Primary Care Provider Active Genia Diaz REEL REPAIRER, REEL REPAIRER-C Attending Provider, Referring Provider Active Rn Operating Room Relationship Specialty Start Date End Date Sirena Mcneil MD [address] [place] [address] PCP - General Family Medicine 06/07/15 Rn Operating Room Relationship Specialty Start Date End Date Sirena Mcneil MD [address] [place], [place] [id number] PCP - General Family Medicine 06/07/15 Team Status: Active Member Role Status Dates No Primary Care Physician Primary Care Provider Active Team Status: Inactive Member Role Status Dates No Primary Care Physician Primary Care Provider Active Start: February 20, 2025 End: February 20, 2025 Dr. Remus Ungur , DO Emergency Provider Active S tart: February 20, 2025 End: February 20, 2025 Rn Operating Room Relationship Specialty Start Date End Date Sirena Mcneil MD [address] [place] [address] PCP - General Family Medicine 06/07/15 Source Comments (unrecognize d section and content) In the event this informatio n is protected by the Federal Confidentiality of Alcohol and Drug Abuse Patient Records regulations: The Federal rules restrict any use of the information to criminally investigate or prosecute any alcohol or drug abuse patient.[facility] the event this information is protected by the Federal Confidentiality of Alcohol and Drug Abuse Patient Records regulations: The Federal rules restrict any use of the information to criminally investigate or prosecute any alcohol or drug abuse patient.[facility] Center[facility] the event this information is protected by [...] BE BASED ON THE PRIMARY CLINICAL RECORDS. [facility]. provides no warranty or guarantee of the accuracy or completeness of information in this document.
== END | disposition home or self-care (01) ==
LOC: LAB 12:50
PROVIDERS: Referring Provider Nurse Practitioner Women's Health; Visit Provider Nurse Practitioner Women's Health
DX: N91.2 Amenorrhea, unspecified (principal)
CPT/HCPCS: 36415; 84702

== ENCOUNTER → 2025-07-24 | Outpatient (CLI) | payer MEDICAID, SELFPAY ==
[2025-07-24 16:53] LABS: hCG Titer Quant., Serum 64885 mIU/mL (<9 non-preg)
== END | disposition home or self-care (01) ==
LOC: LAB 14:51
PROVIDERS: Referring Provider Nurse Practitioner Women's Health; Visit Provider Nurse Practitioner Women's Health
DX: N91.2 Amenorrhea, unspecified (principal)
CPT/HCPCS: 36415; 84702

== ENCOUNTER → 2025-07-31 | Outpatient (CLI) | payer MEDICAID, SELFPAY ==
--- NOTE | 2025-07-31 15:47 | US_ITS ---
PROCEDURE: TRANSVAGINAL W/PREG US 07/31/2025 REASON FOR EXAM: DATING US TECHNIQUE: Procedure Code: USTVAGP Modality: US Procedure: TRANSVAGINAL W/PREG US COMPARISON: None FINDINGS: Comments: LMP: June 05, 2025. Number of Gestational Sacs: 1 Gestational Sac Shape: Normal Number of Fetuses: 1 Heart Rate: 150 beats per minute (average) Survey of Visible Anatomic Structures: Grossly unremarkable for gestational age. Yolk Sac: Present and unremarkable. Placenta: Presently not well-visualized Amniotic Fluid Volume: Subjectively normal for gestational age. Uterine Abnormalities: Maternal uterus is unremarkable. Ovaries / Adnexa: Both maternal ovaries are visualized and unremarkable. DIMENSIONS: Parameter Measurement / EGA [place] Rump Length: 14.8 mm/7 weeks and 6 days Gestational Sac: 34.7 mm/8 weeks and 5 days Yolk Sac: 3.9 mm/ ESTIMATED GESTATIONAL AGE: By Ultrasound: 8 weeks and 2 days By LMP: 8 weeks and 0 days ESTIMATED DATE OF DELIVERY: By Ultrasound: March 10, 2026 By LMP: March 12, 2026 1.4 cm x 0.9 cm x 0.6 cm hypoechoic area adjacent to the gestational sac suggestive of possible subchorionic bleed. US/Transvaginal w/Preg US IMPRESSION: Intrauterine gestation with a mean gestational age of 8 weeks and 2 days. Findings suggestive of a small subchorionic bleed adjacent to the gestational s ac. Reading Location: [facility]
== END | disposition home or self-care (01) ==
LOC: US 15:45
PROVIDERS: Referring Provider Nurse Practitioner Women's Health; Visit Provider Nurse Practitioner Women's Health
DX: N91.2 Amenorrhea, unspecified (principal)
CPT/HCPCS: 76817

== ENCOUNTER → 2025-08-17 | Outpatient (CLI) | payer MEDICAID, SELFPAY ==
[2025-08-17 15:46] LABS: Hematocrit 36.4 % (37-47); Hemoglobin 12.8 g/dL (12.0-15.0); Immature Granulocytes Count 0.070 X10^3/uL (0.0-0.0); Mean Corp Hgb Conc 35.2 g/dL (32-36); Mean Corpuscular Volume 84.1 fL (81-99); Mean Platelet Vol. 10.2 fl (6.2-12.0); NRBC Flagged by Analyzer 0 % (0-5); Platelet Count 377 K/mm3 (150-450); RBC Distribution Width CV 12.7 % (11.6-14.6); RBC Distribution Width SD 38.6 fl (35.1-43.9); Red Blood Count 4.33 M/mm3 (4.2-5.4); White Blood Count 14.4 K/mm3 (4.4-11.0)
[2025-08-17 17:07] LABS: HIV Nonreactive (Nonreactive); Hepatitis B Surface Antigen Nonreactive (Nonreactive); Hepatitis C Antibody Nonreactive (Nonreactive); Syphilis Antibodies Nonreactive (Nonreactive)
[2025-08-17 17:53] LABS: Barbiturate Urine NEGATIVE (< 200 ng/mL); Benzodiazepine Urine NEGATIVE (< 200 ng/mL); PCP Urine NEGATIVE (< 25 ng/mL); THC Urine PRESUMPTIVE POSITIVE (< 50 ng/mL)
[2025-08-20 10:08] LABS: Chlamydia By Nucleic Acid AMP Negative (Negative); Gonococcus By Nucleic Acid AMP Negative (Negative)
== END | disposition home or self-care (01) ==
PROVIDERS: Referring Provider Obstetrics & Gynecology; Visit Provider Obstetrics & Gynecology
DX: O99.320 Drug use complicating pregnancy, unspecified trimester (principal); F12.10 Cannabis abuse, uncomplicated; O99.210 Obesity complicating pregnancy, unspecified trimester; Z3A.00 Weeks of gestation of pregnancy not specified
CPT/HCPCS: 36415; 80307; 83036; 85025; 86703; 86762; 86780; 86803; 86850; 86900; 86901; 87086; 87088; 87340; 87491; 87591

== ENCOUNTER → 2025-09-18 | Outpatient (CLI) | payer MEDICAID, SELFPAY ==
--- OUTSIDE RECORDS SUMMARY | 2025-09-18 16:15 | XMS RPT_ITS | CCD ---
Author Organization [facility] Care Team Providers Care Gas Meter Repairer Name Role Phone DIPAKVIDHYATanisha Unavailable Unavailable SIRENA MCNEIL Unavailable Unavailable Care Physician, No Primary Primary Care Provider Unavailable Care Physician, No Primary Referring Provider Un available Dr. Luci Arreguin Attending Provider [phone] Dr. Luci Arreguin Referring Provider [phone] Dr. Luci Arreguin Other Provider [phone] Emily RESIDENT CARE SUPERVISOR, RESIDENT CARE SUPERVISOR-C Genia Attending Provider [phone] Sirena Mcneil MD Primary Care Provider Care Physician, No Primary Primary Care Provider Unavailable Care Physician, No Primary Referring Provider Un available Emily RESIDENT CARE SUPERVISOR, RESIDENT CARE SUPERVISOR-C Genia Attending Provider [phone] Sirena Mcneil MD Primary Care Provider Care Physician, No Primary Primary Care Provider Unavailable Dr. Jess Coker DO Emergency Provider SIRENA MCNEIL Primary Care Unavailabl SIRENA Allred Primary Care Unavailabl e POP ARGUETA Attending Unavailable SIRENA MCNEIL Primary Care Unavailabl e POP TRUJILLO Attending Unavailable Care Physician, No Primary Primary Care Provider Unavailable Emily RESIDENT CARE SUPERVISOR-CGenia Attending Provider [phone] Ducor RESIDENT CARE SUPERVISOR-CGenia Referring Provider [phone] Care Physician, No Primary Primary Care Physicia n Unavailable Emily RESIDENT CARE SUPERVISOR-CGenia Attending Physician [phone] Care Physician, No Primary Referring Provider Un available Dr. Luci Arreguin MD Attending Physician Rodríguez MENDEZ, Dr. Verma Referring Provider [phone] Genia Diaz Attending Unavailable Emily, Genia Referring Unavailable Care Physician, No Primary Primary Care Unava ilable Emily, Genia Referring Unavailable Care Physician, No Primary Primary Care Unava ilable Ducor, Genia Attending Unavailable Ducor, Genia Referring Unavailable Care Physician, No Primary Primary Care Unava ilable Ducor, Genia Attending Unavailable UngJess chapin Attending Unavailable Care Physician, No Primary Primary Care Unava ilable Care Physician, No Primary Referring Unava ilable Care Physician, No Primary Primary Care Unava ilable Krystyna Barnett Attending Unavailabl e Care Physician, No Primary Primary Care Unava ilable Luci Arreguin Attending Unavailable Care Physician, No Primary Referring Unava ilable Luci Arreguin Attending Unavailable Rodríguez, Luci Referring Unavailable Care Physician, No Primary Primary Care Unava ilable Medications Current Medications Medication Drug Class(es) Dates Sig (Normalized) Sig (Original) amoxicillin 500 mg oral capsule (12 sources) Penicillin-class Antibacterial Start: 07-08-2025 End: 07-15-2025 take 1 capsule by mouth every eight hours amoxicillin (AMOXIL) 500 mg capsule Take 1 capsule by mouth every 8 hours for 7 days. 21 capsule 07/08/2025 07/15/2025 Active Start: 12-25-2024 End: 01-04-2025 take 1 capsule by mouth twice daily amoxicillin (AMOXIL) 500 mg capsule Indications: Strep pharyngitis Take 1 capsule by mouth two times a day for 10 days. 20 capsule 12/25/2024 01/04/2025 Active Start: 02-05-2020 End: 02-23-2020 take 1 tablet by mouth three times daily Amoxicillin 500 MG tablet Discontinued 500 mg PO THREE TIMES A DAY 21 0 February 05, 2020 12:00am February 23, 2020 [...] times a day f or 7 days. [place] (Nk) (7 sources) Start: 02-20-2025 [place] (Nk) Active February 20, 2025 12:00am Start: 05-22-2023 [place] (Nk) A ctive May 22, 2023 12:00am Pnv No.598-[id number]-Dha-Epa-Fi sh 400 mcg-35 mg- 25 mg-5 mg tablet,chewable (2 sources) Start: 08-07-2025 sulfamethoxazole 40 mg/ml / trimethoprim 8 mg/ml oral suspension (4 sources) Dihydrofolate Reductase Inhibitor Antibacterial, Sulfonamide Antimicrobial Start: 06-07-2015 sulfamethoxazole -trimethoprim (BACTRIM,SEPTRA) 200-40 mg/5 mL suspension Take 4 tsp twice daily for 10 days 400 mL 0 06/07/2015 Active Comment on above: Take 4 tsp twice imtiaz ly for 10 days Completed/Discontinued Medications Medication Drug Class(es) Dates Sig (Normalized) Sig (Original) azithromycin 500 mg oral tablet (20 sources) Macrolide Antimicrobial Start: 09-08-2020 End: 10-25-2021 take 1 tablet by mouth once Azithromycin (Zithromax) 500 mg tablet Discontinued 1000 mg PO ONCE 2 0 September 08, 2020 12:00am October 25, 2021 11:40am administer on day 1 of therapy Start: 04-09-2020 End: 04-23-2020 take 1 g by mouth once Azithromycin 1 gram packet D iscontinued 1 g PO ONCE 1 0 April 09, 2020 12:00am April 23, 2020 2:17pm Start: 12-04-2019 End: 01-05-2020 take 1 tablet by mouth once Azithromycin (Zithromax) 5 00 mg tablet Discontinued 1000 mg PO ONCE 2 0 December 04, 2019 1:00am January 05, 2020 10:16am administer on day 1 of therapy clotrimazole 20 mg/ml vaginal cream (10 sources) Azole Antifungal Start: 04-23-2020 End: 04-30-2020 Clotrimazole 2 % cream Discontinued 1 NMA VAGINAL AT BEDTIME 21 7 0 April 23, 2020 12:00am April 29, 2020 12:00am April 30, 2020 12:02am Start: 04-23-2020 End: 04-30-2020 Clotrimazole Discontinued 1 APPFUL VAGINAL AT BEDTIME 21 April 22, 2020 11:00pm April 29, 2020 11:02pm doxycycline hyclate 100 mg oral capsule (6 sources) Tetracycline-class Drug Start: 05-19-2024 End: 05-26-2024 take 1 capsule by mouth twice daily Doxycycline Hyclate 100 mg capsule Discontinued 100 mg PO TWICE A DAY 14 7 0 May 19, 2024 12:00am May 25, 2024 12:00am May 26, 2024 12:04am lidocaine 0.04 mg/mg topical gel (10 sources) Antiarrhythmic, Amide Local Anesthetic Start: 04-08-2020 End: 04-23-2020 Lidocaine 4 % gel Discontinued 1 NMA TOPICAL 2 to 4 times per day as needed for pain 30 April 08, 2020 12:00am April 23, 2020 2:17pm metroNIDAZOLE 500 mg oral tablet (20 sources) Nitroimidazole Antimicrobial Start: 12-19-2023 End: 12-26-2023 take 1 tablet by mouth twice daily Metronidazole 500 mg tablet Discontinued 500 mg PO TWICE A DAY 14 7 0 December 19, 2023 1:00am December 25, 2023 1:00am December 26, 2023 1:04am Start: 04-02-2020 End: 04-09-2020 take 1 tablet by mouth twice daily Metronidazole (Flagyl) 500 mg tablet Discontinued 500 mg PO TWICE A DAY 14 7 0 April 02, 2020 12:00am April 08, 2020 12:00am April 09, 2020 12:02am Start: 12-04-2019 End: 01-05-2020 take 1 tablet by mouth twice daily Metronidazole (Flagyl) 500 mg tablet Discontinued 500 mg PO TWICE A DAY 14 0 December 04, 2019 1:00am January 05, 2020 10:16am naproxen 250 mg oral tablet (10 sources) Nonsteroidal Anti-inflammatory Drug Start: 07-06-2020 End: 09-01-2020 take 250-500 mg by mouth every eight hours as needed for pain Naproxen 250 MG tablet Discontinued 250 - 500 mg PO EVERY 8 HOURS NEEDED as needed for MILD PAIN 30 July 06, 2020 12:00am September 01, 2020 2:58pm ondansetron 4 mg disintegrating oral tablet (6 sources) Serotonin-3 Receptor Antagonist Start: 05-26-2024 End: 02-20-2025 take 1 tablet by mouth every four hours as needed for nausea and vomiting Ondansetron 4 mg tablet,disintegr ating Discontinued 4 mg PO Q4H as needed for nausea and vomiting 30 May 26, 2024 12:00am February 20, 2025 7:58pm Pnv Cmb#95-Ferrous Fumarate-Fa (4 sources) Start: 02-04-2020 End: 10-25-2021 Pnv Cmb#95-Ferrous Fumarate-Fa Discontinued 1 EACH PO DAILY February 03, 2020 11:00pm October 25, 2021 10:40am Start: 02-04-2020 End: 10-25-2021 Pnv Cmb#95-Ferrous Fumarate- Fa Discontinued 1 EACH PO DAILY February 04, 2020 12:00am October 25, 2021 11:40am Pnv Cmb#95-Ferrous Fumarate- Fa 1 EACH tablet (2 sources) Start: 02-04-2020 End: 10-25-2021 Pnv Cmb#95-Ferrous Fumarate- Fa 1 EACH tablet Discontinued 1 NMA PO DAILY February 04, 2020 12:00am October 25, 2021 11:40am Start: 02-04-2020 End: 10-25-2021 Pnv Cmb#95-Ferrous Fumarate- Fa 1 EACH tablet Discontinued 1 NMA PO DAILY February 04, 2020 12:00am October 25, 2021 11:40am Pnv No.95-Ferrous Fumarate-Fa 1 EACH tablet (4 sources) Start: 02-04-2020 End: 10-25-2021 take 1 tablet by mouth once daily Pnv No.95-Ferrous Fumarate-Fa 1 EACH tablet Discontinued 1 NMA PO DAILY February 04, 2020 12:00am October 25, 2021 11:40am valACYclovir 1000 mg oral tablet (7 sources) Herpesvirus Nucleoside Analog DNA Polymerase Inhibitor, Herpes Simplex Virus Nucleoside Analog DNA Polymerase Inhibitor, Herpes Zoster Virus Nucleoside Analog DNA Polymerase Inhibitor Start: 12-19-2023 End: 12-29-2023 Valacyclovir 1 gram tablet Discontinued 1000 mg PO TWICE A DAY 20 10 December 19, 2023 1:00am December 28, 2023 1:00am December 29, 2023 1:39am Start: 12-19-2023 take 1000 mg by mout h twice daily Valacyclovir Active 1000 MG PO TWICE A DAY 14 09December 19, 2023 12:00am Problems Active Problems Problem Classification Problem Date Documented Date Episodic/Chronic Anxiety disorders (12 sources) Anxiety; Translations: [Anxiety disorder, unspecified] 05-14-2020 Chronic Comment on above: encouraged counselin g. no meds. Attention-deficit, conduct, and disruptive behavior disorders (12 sources) Attention deficit hyperactivity disorder; Translations: [Attention-deficit hyperactivity disorder, unspecified type] 07-05-2020 Chronic Bacterial infection; unspecified site (10 sources) Chlamydial infection; Translations: [Chlamydial infection, unspecified] 12-04-2019 Episodic Contraceptive and procreative management (2 sources) Patient encounter status; Translations: [Encounter for contraceptive management, unspecified] 06-11-2023 Episodic Disorders of teeth and jaw (3 sources) Infection of tooth; Translations: [Periapical abscess without sinus] Onset: 07-08-2025 10-01-2023 Episodic Hemorrhage during ; abruptio placenta; placenta previa (13 sources) Hemorrhage in early , unspecified; Translations: [First trimester bleeding] 05-16-2023 Episodic Comment on above: 1.4cm on US:recheck at B Immunizations and screening for infectious disease (15 sources) Requires diphtheria, tetanus and pertussis vaccination; Translations: [Encounter for immunization] 07-11-2019 Episodic Menstrual disorders (3 sources) Amenorrhea; Translations: [Amenorrhea, unspecified] Onset: 08-06-2025 07-06-2025 Chronic Comment on above: HCG x2 Open wounds of extremities (10 sources) Laceration of left upper arm; Translations: [Laceration without foreign body of left upper arm, initial encounter] 07-11-2019 Episodic Other aftercare (1 source) Encounter for follow-up examination after completed treatment for conditions other than malignant neoplasm; Translations: [Follow-up examination, following surgery, unspecified] 06-11-2023 Episodic Other complications of (4 sources) Maternal obesity complicating , childbirth and the puerperium, antepartum; Translations: [Obesity complicating , unspecified trimester] 08-17-2025 Chronic Comment on above: HgbA1c, encourage he althy weight gain. BMI 34 Other complications of (1 source) Obesity complicating , unspecified trimester; Translations: [Obesity complicating , unspecified trimester] Onset: 08-17-2025 Chronic Other complications of (10 sources) Urinary tract infection in ; Translations: [Unspecified infection of urinary tract in , unspecified trimester] 06-03-2020 Episodic Comment on above: 02/03 tx ED' Repeat n egative Other complications of (10 sources) Anomaly of placenta; Translations: [Malformation of placenta, unspecified, unspecified trimester] 06-03-2020 Episodic Comment on above: placental frank, seri al growth q4 wks @ 28 wks. Growth US normal on 04/26 Other complications of (4 sources) H/O: miscarriage; Translations: [Supervision of with other poor reproductive or obstetric history, unspecified trimester] 08-07-2025 Episodic Other complications of (4 sources) High risk ; Translations: [Supervision of high risk , unspecified, unspecified trimester] 08-07-2025 Episodic Comment on above: , MORTEZA 03/10/26 PC Legend, BF [place] Other complications of (1 source) Supervision of high risk , unspecified, unspecified trimester; Translations: [Supervision of high risk , unspecified, unspecified trimester] Onset: 08-17-2025 Episodic Other female genital disorders (1 source) Other specified noninflammatory disorders of vulva and perineum; Translations: [Other specified noninflammatory disorders of vulva and perineum] 12-19-2023 Episodic Other infections; including parasitic (12 sources) History of chlamydial infection; Translations: [Personal history of other infectious and parasitic diseases] 10-25-2021 Episodic Comment on above: 08/2020 Other infections; including parasitic (1 source) Worms in stool; Translations: [Helminthiasis, unspecified] 03-12-2025 Episodic Other injuries and conditions due to external causes (6 sources) Hematoma; Translations: [Other injury of unspecified body region, initial encounter] 02-20-2025 Episodic Other and delivery including normal (20 sources) Vaginal delivery; Translations: [Encounter for full-term uncomplicated delivery] 09-27-2021 Episodic Comment on above: elects NIPT with gen kaiden & carrier testing, low risk Other upper respiratory infections (2 sources) Sore throat symptom; Translations: [Acute pharyngitis, unspecified] 12-25-2024 Episodic Pancreatic disorders (not diabetes) (10 sources) Pancreatitis; Translations: [Acute pancreatitis without necrosis or infection, unspecified] 12-04-2019 Episodic Residual codes; unclassified (10 sources) High risk sexual behavior of adolescence; Translations: [High risk heterosexual behavior] 12-04-2019 Episodic Residual codes; unclassified (4 sources) Family history of autism; Translations: [Family history of other mental and behavioral disorders] 08-07-2025 Episodic Comment on above: son Spontaneous (15 sources) with abortive outcome; Translations: [Incomplete spontaneous without complication] 05-25-2023 Episodic Sprains and strains (10 sources) Sprain of ankle; Translations: [Sprain of unspecified ligament of right ankle, initial encounter] 07-11-2019 Episodic Substance-related disorders (13 sources) Cannabis abuse; Translations: [Cannabis abuse, uncomplicated] Onset: 08-17-2025 09-27-2021 Chronic Comment on above: recommend cessation. recommended cessatio n, informed of drug tox screen initial & random 08/17/25 - positive marijuana Substance-related disorders (1 source) Drug use complicating , unspecified trimester; Translations: [Drug use complicating , unspecified trimester] Onset: 08-21-2025 Episodic Past or Other Problems Problem Classification Problem Date Documented Da te Episodic/Chronic Other infections; including parasitic (1 source) Helminthiasis, unspecified; Translations: [Worms in stool] Onset: 03-12-2025 Episodic Superficial injury; contusion (17 sources) Retained foreign body of eyelid; Translations: [Superficial foreign body of right eyelid and periocular area, initial encounter] Onset: 02-25-2025 04-03-2014 Episodic Results Test Name Value Interpretation Reference Range Facility Urine Cultureon 08-21-2025 [facility] Urine Culture Urine Culture Mixed Gram Positive Organisms [place] Count 25,000-50,000 [facility] Mixed contaminants. Submit a new specimen if indicated. [facility] Comment on above: Performed By: #### L 900.0098, L509.8002, L100.0100, L3890.6102, L7000.1800, L3890.6006, L505.5000, L501.9985, M100.2200, BTS, L3890.6301, L509.4006 ####[facility] [id number] [place], [address] Chlamydia/GC KIRILL aptimaon CHLAMY,NUC ACID Negative Normal Negative [facility] Comment on above: Performed By: #### L 7000.1800 #### [facility] [address] [place], [address] GC BY NUC ACID Negative Normal Negative [facility] Comment on above: Result Comment: Perf ormed at: =G - [facility] [address] [id number] Manager Cardiology: Isidra Jones MD, Phone: [phone] Performed By: #### L 7000.1800 #### [facility] [address] [place], [address] Absolute lymphocyte countOrd ered By: Luci Arreguin on 08-17-2025 Lymphocytes Auto (Unsp spec) [#/Vol] 2.03 10*3/uL 0.83-4.51 [facility] Absolute neutrophil countOrd ered By: Luci Arreguin on 08-17-2025 Neutrophils (Bld) [#/Vol] 11.3 10*3/uL High 2.0-7.7 [facility] Amphetamine detection with 1 000 ng/mL as cutoffOrdered By: Luci Arreguin on 08-17-2025 Amphetamines Screen method >1000 ng/mL Ql (U) Negative < 200 ng/mL [facility] Automated lymphocyte count a s percentage of total leukocytesOrdered By: Luci Arreguin on 08-17-2025 Lymphocytes/100 WBC Auto (Unsp spec) 14.1 % Low 19-41 [facility] Basophil percentageOrdered B y: Luci Arreguin on 08-17-2025 Basophils/100 WBC (Bld) 0.3 % 0-1 [facility] CBC W/Diff, Automatedon 09-2 2-2025 Absolute Lymph 2.03 X10 3/uL Normal 0.83-4.51 [facility] Comment on above: Performed By: #### L 900.0098, L509.8002, L100.0100, L3890.6102, L7000.1800, L3890.6006, L505.5000, L501.9985, M100.2200, BTS, L3890.6301, L509.4006 #### [facility] [address] [place], [address] Absolute Neut 11.3 X10 3/uL High 2.0-7.7 [facility] Comment on above: Performed By: #### L 900.0098, L509.8002, L100.0100, L3890.6102, L7000.1800, L3890.6006, L505.5000, L501.9985, M100.2200, BTS, L3890.6301, L509.4006 #### [facility] [address] [facility] [place], [address] Basophils/100 WBC (Bld) 0.3 % Normal 0-1 [facility] Comment on above: Performed By: #### L 900.0098, L509.8002, L100.0100, L3890.6102, L7000.1800, L3890.6006, L505.5000, L501.9985, M100.2200, BTS, L3890.6301, L509.4006 #### [facility] [address] [place], [address] Eosinophils/100 WBC (Bld) 0.6 % Normal 0-5 [facility] Comment on above: Performed By: #### L 900.0098, L509.8002, L100.0100, L3890.6102, L7000.1800, L3890.6006, L505.5000, L501.9985, M100.2200, BTS, L3890.6301, L509.4006 #### [facility] [address] [place], [address] Erythrocyte distribution width (RBC) [Ratio] 12.7 % Normal 11.6-14.6 [facility] Comment on above: Performed By: #### L 900.0098, L509.8002, L100.0100, L3890.6102, L7000.1800, L3890.6006, L505.5000, L501.9985, M100.2200, BTS, L3890.6301, L509.4006 #### [facility] [address] [place], [address] (997) Hematocrit (Bld) [Volume fraction] 36.4 % Low 37-47 [facility] Comment on above: Performed By: #### L 900.0098, L509.8002, L100.0100, L3890.6102, L7000.1800, L3890.6006, L505.5000, L501.9985, M100.2200, BTS, L3890.6301, L509.4006 #### [facility] [address] [place], [place], [id number] (553) Hemoglobin (Bld) [Mass/Vol] 12.8 g/dL Normal 12.0-15.0 [facility] Comment on above: Performed By: #### L 900.0098, L509.8002, L100.0100, L3890.6102, L7000.1800, L3890.6006, L505.5000, L501.9985, M100.2200, BTS, L3890.6301, L509.4006 #### [facility] [address] [place], [address] IG% 0.500 Normal 0.0-0.9 [facility] Comment on above: Result Comment: IG% - Immature Granulocytes (promyelocytes, myelocytes and metamyelocytes) > 1% indicates that a LEFT SHIFT is Present. Performed By: #### L 900.0098, L509.8002, L100.0100, L3890.6102, L7000.1800, L3890.6006, L505.5000, L501.9985, M100.2200, BTS, L3890.6301, L509.4006 #### [facility] [address] [place], [address] Lymphocytes/100 WBC (Bld) 14.1 % Low 19-41 [facility] Comment on above: Performed By: #### L 900.0098, L509.8002, L100.0100, L3890.6102, L7000.1800, L3890.6006, L505.5000, L501.9985, M100.2200, BTS, L3890.6301, L509.4006 #### [facility] [address] [place], [address] MCH (RBC) [Entitic mass] 29.6 pg Normal 27.0-32.0 [facility] Comment on above: Performed By: #### L 900.0098, L509.8002, L100.0100, L3890.6102, L7000.1800, L3890.6006, L505.5000, L501.9985, M100.2200, BTS, L3890.6301, L509.4006 #### [facility] [address] [place], [address] MCHC (RBC) [Mass/Vol] 35.2 g/dL Normal 32-36 [facility] Comment on above: Performed By: #### L 900.0098, L509.8002, L100.0100, L3890.6102, L7000.1800, L3890.6006, L505.5000, L501.9985, M100.2200, BTS, L3890.6301, L509.4006 #### [facility] [address] [place], [address] MCV (RBC) [Entitic vol] 84.1 fL Normal 81-99 [facility] Comment on above: Performed By: #### L 900.0098, L509.8002, L100.0100, L3890.6102, L7000.1800, L3890.6006, L505.5000, L501.9985, M100.2200, BTS, L3890.6301, L509.4006 #### [facility] [address] [place], [address] Monocytes/100 WBC (Bld) 6.0 % Normal 0-10 [facility] Comment on above: Performed By: #### L 900.0098, L509.8002, L100.0100, L3890.6102, L7000.1800, L3890.6006, L505.5000, L501.9985, M100.2200, BTS, L3890.6301, L509.4006 #### [facility] [address] [place], [address] Neutrophils/100 WBC (Bld) 78.5 % High 47-70 [facility] Comment on above: Performed By: #### L 900.0098, L509.8002, L100.0100, L3890.6102, L7000.1800, L3890.6006, L505.5000, L501.9985, M100.2200, BTS, L3890.6301, L509.4006 #### [facility] [address] [place], [address] Nucleated RBC (Bld) [#/Vol] 0 10*3/uL Normal 0-5 [facility] Comment on above: Performed By: #### L 900.0098, L509.8002, L100.0100, L3890.6102, L7000.1800, L3890.6006, L505.5000, L501.9985, M100.2200, BTS, L3890.6301, L509.4006 #### [facility] [address] [place], [address] Platelet mean volume (Bld) [Entitic vol] 10.2 fL Normal 6.2-12.0 [facility] Comment on above: Performed By: #### L 900.0098, L509.8002, L100.0100, L3890.6102, L7000.1800, L3890.6006, L505.5000, L501.9985, M100.2200, BTS, L3890.6301, L509.4006 #### [facility] [address] [place], [address] Platelets (Bld) [#/Vol] 377 10*3/uL Normal 150-450 [facility] Comment on above: Performed By: #### L 900.0098, L509.8002, L100.0100, L3890.6102, L7000.1800, L3890.6006, L505.5000, L501.9985, M100.2200, BTS, L3890.6301, L509.4006 #### [facility] [address] [place], [address] RBC (Bld) [#/Vol] 4.33 10*6/uL Normal 4.2-5.4 [facility] Comment on above: Performed By: #### L 900.0098, L509.8002, L100.0100, L3890.6102, L7000.1800, L3890.6006, L505.5000, L501.9985, M100.2200, BTS, L3890.6301, L509.4006 #### [facility] [address] [place], [address] RDW SD 38.6 fl Normal 35.1-43.9 [facility] Comment on above: Performed By: #### L 900.0098, L509.8002, L100.0100, L3890.6102, L7000.1800, L3890.6006, L505.5000, L501.9985, M100.2200, BTS, L3890.6301, L509.4006 #### [facility] [address] [place], [address] WBC (Bld) [#/Vol] 14.4 10*3/uL High 4.4-11.0 [facility] Comment on above: Performed By: #### L 900.0098, L509.8002, L100.0100, L3890.6102, L7000.1800, L3890.6006, L505.5000, L501.9985, M100.2200, BTS, L3890.6301, L509.4006 #### [facility] [address] [place], [address] Chlamydia trachomatis rRNA d etection by probe and target amplification methodOrdered By: Luci Arreguin on 08-17-2025 C. trachomatis rRNA KIRILL+probe Ql (Unsp spec) Negative Negative [facility] Chlamydia/GC KIRILL aptimaon CHLAMY,NUC ACID Normal [facility] Comment on above: Result Comment: DUPL ICATE Performed By: #### L 900.0098, L509.8002, L100.0100, L3890.6102, L7000.1800, L3890.6006, L505.5000, L501.9985, M100.2200, BTS, L3890.6301, L509.4006 ####[facility] [address] [place], [address] GC BY NUC ACID Normal [facility] Comment on above: Result Comment: DUPL ICATE Performed By: #### L 900.0098, L509.8002, L100.0100, L3890.6102, L7000.1800, L3890.6006, L505.5000, L501.9985, M100.2200, BTS, L3890.6301, L509.4006 ####[facility] [id number] [place], [place], [phone] Eosinophil percentageOrdered By: Luci Rodríguez on 08-17-2025 Eosinophils/100 WBC (Bld) 0.6 % 0-5 [facility] Erythrocyte distribution wid th ratioOrdered By: Lucigutierrez Arreguin on 08-17-2025 Erythrocyte distribution width (RBC) [Ratio] 12.7 % 11.6-14.6 [facility] Erythrocyte distribution wid th standard deviationOrdered By: Lucigutierrez Arreguin on 08-17-2025 Erythrocyte distribution width (RBC) [Ratio] 38.6 fl 35.1-43.9 [facility] HIVon 08-17-2025 HIV Non-Reactive Normal Nonreactive [facility] Comment on above: Result Comment: Non- Reactive Reactive Repeatedly reactive samples must be confirmed according to CDC recommended confirmatory algorithms. The subresults for either HIVAG or AHIV can be used as an aid in the selection of the confirmation algorithm for reactive samples. Send out specimens with Reactive results to [facility] for confirmation. Order the HIV antibody detection and differentiation: lc#[id number] Performed By: #### L 900.0098, L509.8002, L100.0100, L3890.6102, L7000.1800, L3890.6006, L505.5000, L501.9985, M100.2200, BTS, L3890.6301, L509.4006 ####[facility] [address] [place], [place], [id number] Hematocrit Auto (Bld) [Volum e fraction]Ordered By: Luci Arreguin on 08-17-2025 Hematocrit (Bld) [Volume fraction] 36.4 % Low 37-47 [facility] Hemoglobin A1con 08-17-2025 HbA1c (Bld) [Mass fraction] 5.1 % Normal <=5.6 [facility] Comment on above: Result Comment: Norm al < 5.7 % Prediabetic 5.7 - 6.4 % Diabetic >or= 6.5 % Please note range changes. Performed By: #### L 900.0098, L509.8002, L100.0100, L3890.6102, L7000.1800, L3890.6006, L505.5000, L501.9985, M100.2200, BTS, L3890.6301, L509.4006 #### [facility] [address] [place], [place], [phone] Hemoglobin A1c percentageOrd ered By: Luci Arreguin on 08-17-2025 HbA1c (Bld) [Mass fraction] 5.1 % <5.7 [facility] Comment on above: Normal < 5.7 % Predi abetic 5.7 - 6.4 % Diabetic >or= 6.5 % Please note range changes. Hemoglobin measurementOrdere d By: Luci Arreguin on 08-17-2025 Hemoglobin (Bld) [Mass/Vol] 12.8 g/dL 12.0-15.0 [facility] Hepatitis C Antibodyon 08-17 Hepatitis C Ab Non-Reactive Normal Nonreactive [facility] Comment on above: Result Comment: Reac tive: Presumptive evidence of antibodies to HCV. Follow CDC recommendations for supplemental testing. Non-Reactive: Antibodies to HCV were not detected; does not exclude the possibility of exposure to HCV Reactive Results are presumptive evidence of antibodies to HCV. Follow CDC recommendations for supplemental testing. Order confirmation testing: HCV Quant by PCR testing - HCVPCR #[id number] Non Reactive: < 0.8 Equivocal: >/= 0.8 to < 1.0 Reactive: >/= 1.0 The CDC requires that a reactive/equivocal HCV antibody result be sent out for confirmation. HCV Quant by PCR testing. Performed By: #### L 900.0098, L509.8002, L100.0100, L3890.6102, L7000.1800, L3890.6006, L505.5000, L501.9985, M100.2200, BTS, L3890.6301, L509.4006 ####[facility] [address] [place], [place], [id number] Immature granulocytes/100 WB C Auto (Bld)Ordered By: Luci Arreguin on 08-17-2025 Immature granulocytes/100 WBC (Bld) 0.500 % 0.0-0.9 [facility] Comment on above: IG% - Immature Granu locytes (promyelocytes, myelocytes and metamyelocytes) > 1% indicates that a LEFT SHIFT is Present. L3890.6102on 08-17-2025 HEP B Surf Ag Non-Reactive Normal Nonreactive [facility] Comment on above: Result Comment: Reac tive: Presumptive evidence of HBV. Repeatedly reactive samples must be confirmed using a neutralization test ([employer]ys HBsAg Confirmatory Test) Non-Reactive: HBsAg not detected; does not exclude the possibility of exposure to HBV Performed By: #### L 900.0098, L509.8002, L100.0100, L3890.6102, L7000.1800, L3890.6006, L505.5000, L501.9985, M100.2200, BTS, L3890.6301, L509.4006 ####[facility] [address] [facility]. [place], [place], [id number] L509.4006on 08-17-2025 Rubella IgG REAC Normal Nonreactive [facility] Comment on above: Result Comment: Anti body Result: Interpretation Non-Reactive: Non-Immune Reactive: Immune The following results were obtained with the [employer] Rubella IgG assay. Results from assays of other manufacturers cannot be used interchangeably. Performed By: #### L 900.0098, L509.8002, L100.0100, L3890.6102, L7000.1800, L3890.6006, L505.5000, L501.9985, M100.2200, BTS, L3890.6301, L509.4006 #### [facility] [address] [facility] [place], [place], [phone] Laboratory - Microbiology an d Antimicrobial susceptibilityOrdered By: Luci Arreguin on 08-17-2025 HBV surface Ag Ql (S) Non-Reactive Nonreactive [facility] Comment on above: Reactive: Presumptiv e evidence of HBV. Repeatedly reactive samples must be confirmed using a neutralization test ([employer] HBsAg Confirmatory Test)Non-Reactive: HBsAg not detected; does not exclude the possibility of exposure to HBV MCV (mean corpuscular volume ) determinationOrdered By: Luci Arreguin on 08-17-2025 MCV (RBC) [Entitic vol] 84.1 fL 81-99 [facility] Mean corpuscular hemoglobin (MCH) determinationOrdered By: Luci Arreguin on 08-17-2025 MCH (RBC) [Entitic mass] 29.6 pg 27.0-32.0 [facility] Mean corpuscular hemoglobin concentration (MCHC) determinationOrdered By: Luci Arreguin on 08-17-2025 MCHC (RBC) [Mass/Vol] 35.2 g/dL 32-36 [facility] Mean platelet volume determi nationOrdered By: Luci Arreguin on 08-17-2025 Platelet mean volume (Bld) [Entitic vol] 10.2 fL 6.2-12.0 [facility] Monocyte percentageOrdered B y: Luci Arreguin on 08-17-2025 Monocytes/100 WBC (Bld) 6.0 % 0-10 [facility] NATERAon 08-17-2025 NATURA SEE SCANNED REPORT Normal [facility] Comment on above: Order Comment: Comme nts: NIPT with gender( focus) carrier Performed By: #### L 900.0098, L509.8002, L100.0100, L3890.6102, L7000.1800, L3890.6006, L505.5000, L501.9985, M100.2200, BTS, L3890.6301, L509.4006 #### [facility] [address] [place], [address] Neisseria gonorrhoeae nuclei c acid detection by amplified probe techniqueOrdered By: Luci Arreguin on 08-17-2025 N. gonorrhoeae DNA KIRILL+probe Ql (Unsp spec) Negative Negative [facility] Comment on above: Performed at: =[facility] Prabhu lockett [address] [id number] Director: Isidra Jones MD, Phone: [phone] Neutrophil percentageOrdered By: Luci Arreguin on 08-17-2025 Neutrophils/100 WBC (Bld) 78.5 % High 47-70 [facility] No Panel InformationOrdered By: Luci Arreguin on 08-17-2025 HIV (1&2) Antibody Non-Reactive Nonreactive [facility] Comment on above: Non-ReactiveReactive Repeatedly reactive samples must be confirmed according to CDC recommended confirmatory algorithms. The subresults for either HIVAG or AHIV can be used as an aid in the selection of the confirmation algorithm for reactive samples.Send out specimens with Reactive results to [facility] for confirmation.Order the HIV antibody detection and differentiation: lc#[id number] Urine Buprenorphine Qualitative Negative < 200 ng/mL [facility] Urine Oxycodone Screen Negative < 100 ng/mL [facility] Nucleated red blood cell per centageOrdered By: Luci Arreguin on 08-17-2025 Nucleated RBC/100 WBC (Bld) [Ratio] 0 % 0-5 [facility] Jacquard Card Cutter Office Visit Reporton 08-17-2025 Jacquard Card Cutter Office Visit Report [facility] [address], [address] [place] [address] OFFICE VISIT Date of Service: 08/17/25 MR#: [id number] Acct: [id number] Name: NEO BURR Rep #: [id number] : 2000 Provider: Dr. 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 Is patient in pain?: No Allergies No Known Allergies Allergy (Verified 08/17/25 13:50) Medications ???Medication ???Instructions ???Recorded ???Confirmed ???Type PNV 153-FA 400 mcg-om3 35 mg-dha tab PO 08/07/25 History 25 mg-epa 5 mg-fish oil chew tablet Last Menstrual Period: 06/05/25 Zika: Zika virus screening: Negative : No PFSH PFSH Medical History Incomplete Broken teeth Depression Marijuana use History of pancreatitis Vaginal delivery Anxiety ADHD Umbilical hernia Accidental fall from building MRSA (methicillin resistant Staphylococcus aureus) Surgical History H/O dilation and curettage Family History Mother Heart disease Maternal Grandfather Heart disease Social History adopted: No household members: children number of children: 1 service: No current occupational status: employed current occupation: [employer] pets and animals: Yes (Avoid litterbox) pets and animals: cat(s) history of recent travel: No sexually active: Yes Smoking Status: Never smoker second hand exposure: Yes alcohol intake: current alcohol intake frequency: holidays/special occasions only details: not while substance use type: marijuana well-balanced diet: daily or most days caffeine: Yes Type: carbonated beverages Number of servings: 1 eating out: 1-3 times/week during the past year weight has: remained stable what type of physical activity do you participate in: none dylan/zoroastrian: None seatbelt use: always do you feel safe at home: Yes additional social history: QAMAR Borrero History 3 Elective abortions Hx Para 1 Spontaneous abortions 1 Hx # Term Pregnancies 1 Ectopic pregnancies Hx # Pregnancies Multiple births # of living children 1 Past Pregnancies Del. Date Name GA/Weeks Outcome Route Bth Weight Gen Labor Lgth Anesthesia Del Locatn Provider FOB Unknown 202207/06/20 Legend 40 live - full term 7#9oz Male epidural [facility] Carey Borrero HPI *EST* NOB LMP 06/05, MORTEZA 03/12 Details: NEO BURR is a 24 year old who presents for New OB visit. OB Visit MORTEZA Calculator Estimated Delivery Date Method Current WG Current Estimate 03/10/26 Ultrasound #1 10w 5d Comments: HIV: Urine Culture: Sequential Screen: NIPT Screen: Estimated Due Date: 03/10/26 Expected Delivery Route/Plan Labor Preferences- CB/BF classes: [] labor support person: [] labor intervention preferences: [] pain management options preferred: [] cut cord/dad catch: [] : [] PP control planned: [] discussed possible routes of delivery and associated risks: [] special requests: [] Specific Issue/Plans Covid status: [] Flu vaccine: [] Tdap vaccine: [] Rhogam: [] LARC form signed: [] Problem list reviewed and updated with the most current plan of care details and appropriate orders placed. Relevant counseling for the gestational age provided. Continue routine care and follow up unless otherwise noted in visit notes/problem list details Initial Weight: Not Recorded Date -???-???-???-???-???-?? ?-???-???-???-???-???-? ??- EGA Weight BP Urine Prot -???-???-???-???-???-?? ?-???-???-???-???-???-? ??- Glucose FHR FuHt Pres Dilation -???-???-???-???-???-?? ?-???-???-???-???-???-? ??- Effaced St Visit Note 08/17/25 -???-???-???-???-???-?? ?-???-???-???-???-???-? ??- 10w 5d 214 lb 3 oz 126/77 -???-???-???-???-???-?? ?-???-???-???-???-???-? ??- 170 -???-???-???-???-???-?? ?-???-???-???-???-???-? 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 Normal [facility] Platelet countOrdered By: Portillo Arreguin on 08-17-2025 Platelets (Bld) [#/Vol] 377 10*3/uL 150-450 [facility] Quantitative urine opiates m easurementOrdered By: Luci Arreguin on 08-17-2025 Opiates Ql (U) Negative < 300 ng/mL [facility] RBC Auto (Bld) [#/Vol]Ordere d By: Luci Arreguin on 08-17-2025 RBC (Bld) [#/Vol] 4.33 10*6/uL 4.2-5.4 [facility] Screening urine fentanyl edi surementOrdered By: Luci Arreguin on 08-17-2025 fentaNYL Screen Ql (U) Negative <5 ng/mL [facility] Comment on above: CONFIRMATORY TESTING FOR ALL POSITIVE URINE DRUG SCREENRESULTS WILL ONLY BE SENT OUT UPON PHYSICIAN ORDER. Milady Pro Urine Drug Screen methods provide only preliminaryanalytical test results. A more specific alternate chemicalmethod must be used in order to obtain a confirmedanalytical result. Gas chromatography/mass spectrometery(GC/MS) is the preferred confirmatory method. Clinicalconsideration and professional judgement should be appliedto any drug of abuse test result, particularly whenpreliminary positive results are used. Urine TCA testing must be ordered separately. Use test mnemonic: UTCA Syphilis Antibodieson 2024 Syphilis Abs Non-Reactive Normal Nonreactive [facility] Comment on above: Performed By: #### L 900.0098, L509.8002, L100.0100, L3890.6102, L7000.1800, L3890.6006, L505.5000, L501.9985, M100.2200, BTS, L3890.6301, L509.4006 #### [facility] [address] [place], [place], [id number] Type AND Screenon 08-17-2025 Ab SCREEN GEL Negative Normal [facility] Comment on above: Order Comment: PN Performed By: #### L 900.0098, L509.8002, L100.0100, L3890.6102, L7000.1800, L3890.6006, L505.5000, L501.9985, M100.2200, BTS, L3890.6301, L509.4006 #### [facility] [address] [place], [address] Urine Drug Screen (VISTA)on 08-17-2025 AMPHETAMINES Negative Normal <1000 ng/mL [facility] Comment on above: Order Comment: NIPT with gender( focus) carrierUNKNMOWN Performed By: #### L 900.0098, L509.8002, L100.0100, L3890.6102, L7000.1800, L3890.6006, L505.5000, L501.9985, M100.2200, BTS, L3890.6301, L509.4006 ####[facility] [address] [place], [place], [id number] BARBITIURATES Negative Normal < 200 ng/mL [facility] Comment on above: Order Comment: NIPT with gender( focus) carrierUNKNMOWN Performed By: #### L 900.0098, L509.8002, L100.0100, L3890.6102, L7000.1800, L3890.6006, L505.5000, L501.9985, M100.2200, BTS, L3890.6301, L509.4006 ####[facility] [address] [place], [address] BENZODIAZIPINE Negative Normal < 200 ng/mL [facility] Comment on above: Order Comment: NIPT with gender( focus) carrierUNKNMOWN Performed By: #### L 900.0098, L509.8002, L100.0100, L3890.6102, L7000.1800, L3890.6006, L505.5000, L501.9985, M100.2200, BTS, L3890.6301, L509.4006 ####[facility] [address] [place], [place], [phone] BUP Ur Drug Scr Negative Normal < 200 ng/mL [facility] Comment on above: Order Comment: NIPT with gender( focus) carrierUNKNMOWN Performed By: #### L 900.0098, L509.8002, L100.0100, L3890.6102, L7000.1800, L3890.6006, L505.5000, L501.9985, M100.2200, BTS, L3890.6301, L509.4006 ####[facility] [address] [place], [place], [phone] COCAINE Negative Normal < 300 ng/mL [facility] Comment on above: Order Comment: NIPT with gender( focus) carrierUNKNMOWN Performed By: #### L 900.0098, L509.8002, L100.0100, L3890.6102, L7000.1800, L3890.6006, L505.5000, L501.9985, M100.2200, BTS, L3890.6301, L509.4006 ####[facility] [address] [place], [place], [id number] Fentanyl Negative Normal <5 ng/mL [facility] Comment on above: Order Comment: NIPT with gender( focus) carrierUNKNMOWN Result Comment: CONF IRMATORY TESTING FOR ALL POSITIVE URINE DRUG SCREEN RESULTS WILL ONLY BE SENT OUT UPON PHYSICIAN ORDER. Milady Pro Urine Drug Screen methods provide only preliminary analytical test results. A more specific alternate chemical method must be used in order to obtain a confirmed analytical result. Gas chromatography/mass spectrometery (GC/MS) is the preferred confirmatory method. Clinical consideration and professional judgement should be applied to any drug of abuse test result, particularly when preliminary positive results are used. Urine TCA testing must be ordered separately. Use test mnemonic: UTCA Performed By: #### L 900.0098, L509.8002, L100.0100, L3890.6102, L7000.1800, L3890.6006, L505.5000, L501.9985, M100.2200, BTS, L3890.6301, L509.4006 ####[facility] [address] [place], [place], [id number] METHADONE Negative Normal < 300 ng/mL [facility] Comment on above: Order Comment: NIPT with gender( focus) carrierUNKNMOWN Performed By: #### L 900.0098, L509.8002, L100.0100, L3890.6102, L7000.1800, L3890.6006, L505.5000, L501.9985, M100.2200, BTS, L3890.6301, L509.4006 ####[facility] [address] [place], [place], [id number] OPIATES Negative Normal < 300 ng/mL [facility] Comment on above: Order Comment: NIPT with gender( focus) carrierUNKNMOWN Performed By: #### L 900.0098, L509.8002, L100.0100, L3890.6102, L7000.1800, L3890.6006, L505.5000, L501.9985, M100.2200, BTS, L3890.6301, L509.4006 ####[facility] [address] [place], [place], [id number] OXYCODONE Negative Normal < 100 ng/mL [facility] Comment on above: Order Comment: NIPT with gender( focus) carrierUNKNMOWN Performed By: #### L 900.0098, L509.8002, L100.0100, L3890.6102, L7000.1800, L3890.6006, L505.5000, L501.9985, M100.2200, BTS, L3890.6301, L509.4006 ####[facility] [address] [place], [address] PCP Negative Normal < 25 ng/mL [facility] Comment on above: Order Comment: NIPT with gender( focus) carrierUNKNMOWN Performed By: #### L 900.0098, L509.8002, L100.0100, L3890.6102, L7000.1800, L3890.6006, L505.5000, L501.9985, M100.2200, BTS, L3890.6301, L509.4006 ####[facility] [address] [place], [place], [id number] THC Positive Normal < 50 ng/mL [facility] Comment on above: Order Comment: NIPT with gender( focus) carrierUNKNMOWN Result Comment: If c onfirmation testing is needed, a separate order will be required to send out testing to the reference laboratory. Performed By: #### L 900.0098, L509.8002, L100.0100, L3890.6102, L7000.1800, L3890.6006, L505.5000, L501.9985, M100.2200, BTS, L3890.6301, L509.4006 ####[facility] [address] [place], [address] Urine benzodiazepine levelOr dered By: Luci Arreguin on 08-17-2025 Benzodiazepines Ql (U) Negative < 200 ng/mL [facility] Urine cocaine levelOrdered B y: Luci Arreguin on 08-17-2025 Cocaine Ql (U) Negative < 300 ng/mL [facility] Urine cultureOrdered By: Zachary Arreguin on 08-17-2025 Bacteria identified Cx Nom (U) Positive Abnormal [facility] Urine lnspm-2-dwnjhmywqsxpni abinol (THC) measurementOrdered By: Luci Arreguin on 08-17-2025 Cannabinoids Screen Ql (U) Positive < 50 ng/mL [facility] Comment on above: If confirmation test ing is needed, a separate order will be required to send out testing to the reference laboratory. Urine phencyclidine (PCP) de tectionOrdered By: Luci Arreguin on 08-17-2025 Phencyclidine Ql (U) Negative < 25 ng/mL [facility] White blood cell (WBC) count Ordered By: Luci Arreguin on 08-17-2025 WBC (Bld) [#/Vol] 14.4 10*3/uL High 4.4-11.0 [facility] Transvaginal w/Preg USon Transvaginal w/Preg US [facility] [address] [place] [address] Transvaginal w/Preg US MR#: [id number] Acct: [id number] Name: NEO BURR Rep #: [id number] : 2000 F 24 From: Erwin sutherland MD PCP: Care Physician,No Primary Status: REG CLI Study: Transvaginal w/Preg US Date of Exam: 07/31/25 Exam# [id number] Ordering Dr: Genia Diaz RESIDENT CARE SUPERVISOR RESIDENT CARE SUPERVISOR -C PROCEDURE: TRANSVAGINAL W/PREG US 07/31/2025 REASON FOR EXAM: DATING US TECHNIQUE: Procedure Code: USTVAGP Modality: US Procedure: TRANSVAGINAL W/PREG US COMPARISON: None FINDINGS: Comments: LMP: June 05, 2025. Number of Gestational Sacs: 1 Gestational Sac Shape: Normal Number of Fetuses: 1 Heart Rate: 150 beats per minute (average) Survey of Visible Anatomic Structures: Grossly unremarkable for gestational age. Yolk Sac: Present and unremarkable. Placenta: Presently not well-visualized Amniotic Fluid Volume: Subjectively normal for gestational age. Uterine Abnormalities: Maternal uterus is unremarkable. Ovaries / Adnexa: Both maternal ovaries are visualized and unremarkable. DIMENSIONS: Parameter Measurement / EGA [place] Rump Length: 14.8 mm/7 weeks and 6 days Gestational Sac: 34.7 mm/8 weeks and 5 days Yolk Sac: 3.9 mm/ ESTIMATED GESTATIONAL AGE: By Ultrasound: 8 weeks and 2 days By LMP: 8 weeks and 0 days ESTIMATED DATE OF DELIVERY: By Ultrasound: March 10, 2026 By LMP: March 12, 2026 1.4 cm x 0.9 cm x 0.6 cm hypoechoic area adjacent to the gestational sac suggestive of possible subchorionic bleed. US/Transvaginal w/Preg US IMPRESSION: Intrauterine gestation with a mean gestational age of 8 weeks and 2 days. Findings suggestive of a small subchorionic bleed adjacent to the gestational sac. Reading Location: [id number] CC: MARIELENA Diaz; No Primary Care Physician Transfill Technician: Signed Normal [facility] Serum human chorionic gonado tropin detection for pregnancyOrdered By: Genia Diaz on 07-24-2025 HCG ( test) Ql [address] mIU/mL High <9 [facility] Comment on above: Gestational Age0.2-1 Week: 5-50 mIU/mL1-2 Weeks: 50-500 mIU/mL2-3 Weeks: 100-5000 mIU/mL3-4 Weeks: 500-10,000 mIU/mL4-5 Weeks:1000-50,000 mIU/mL5-6 Weeks: 10,000-100,000 mIU/mL6-8 Weeks: 15,000-200,000 mIU/mL2-3 Months:10,000-100,000 mIU/mL hCG Titer Quant., Serumon HCG QUANT. 22291 mIU/mL High <9 non-preg [facility] Comment on above: Result Comment: Gest ational Age 0.2-1 Week: 5-50 mIU/mL 1-2 Weeks: 50-500 mIU/mL 2-3 Weeks: 100-5000 mIU/mL 3-4 Weeks: 500-10,000 mIU/mL 4-5 Weeks:1000-50,000 mIU/mL 5-6 Weeks: 10,000-100,000 mIU/mL 6-8 Weeks: 15,000-200,000 mIU/mL 2-3 Months:10,000-100,000 mIU/mL Performed By: #### L 700.8000 #### [facility] [address] [place], [address] CNOVon 07-08-2025 CNOV Office Visit (WOVLADIMIR) NEO BURR ([id number]) 4 F Date Time Provider Department 07/08/25 8:45 AM POP TRUJILLO During your visit today, we recorded the following information about you: Temperature Pulse Respiration Blood pressure 98.4 degrees 90/minute 18/minute 120/68 Weight 98.6 kg Pop Trujillo PA-C 07/08/2025 9:29 AM Signed [facility] Subjective Neo Pelletier Leno is a 24 year old female. Patient presents with: Dental Problem: Possible tooth infection bottom left x 2 days HPI Dental Pain and Swelling: - Severe dental decay with teeth broken down to the gum line. - Swelling noted in the gums. - Has a dentist appointment scheduled for next Sunday. - Reports fear of the dentist, leading to delayed care. - Acknowledges poor dental hygiene in the past; now trying to adopt healthier habits. - Denies cough. : - Currently . - Has a 5-year-old child. Review of Systems Ears/Nose/Mouth/Throat: (+) gum swelling Respiratory: (-) cough Psychiatric: (+) anxiety Objective BP 120/68 Pulse 90 Temp 36.9 ?C (98.4 ?F) Resp 18 Wt 98.6 kg (217 lb 6 oz) LMP 02/19/2025 (Exact Date) SpO2 98% Physical Exam General: No acute distress. HEENT: Gingivitis, poor dentition. CV: Regular rate and rhythm. Resp: Lungs clear to auscultation bilaterally. Abd: No abnormalities detected on auscultation. 1. Pain, dental (K08.89) 2. Poor dentition - Significant dental decay with swelling; dental appointment scheduled for next Sunday. - Start amoxicillin; discussed safety in . - Advised that initiating antibiotics is standard prior to dental evaluation in cases like this. - Encouraged patient to follow through with dental care; reassured regarding dental anxiety. - Begin the prescribed amoxicillin (safe during ) and take every dose, finishing the entire course to help reduce infection and swelling. - Attend your dental appointment next Sunday to have the broken-down teeth and gum swelling evaluated and treated. MDM Procedures Allergies As of Date: 07/08/2025 (No Known Allergies) Date Reviewed: 07/08/2025 Reviewed by: Adilene France MA - Fully Assessed Reason for Visit: Dental Problem [31] Cmt: Possible tooth infection bottom left x 2 days Primary Visit Diagnosis:Pain, dental [K08.89] Order(s):amoxicillin (AMOXIL) 500 mg capsuleTake 1 capsule by mouth every 8 hours for 7 days.Disp: 21 capsuleRfl: 0 Prescriptions as of 07/08/2025 - amoxicillin (AMOXIL) 500 mg capsule Take 1 capsule by mouth every 8 hours for 7 days. - sulfamethoxazole-trimet hoprim (BACTRIM,SEPTRA) 200-40 mg/5 mL suspension Take 4 tsp twice daily for 10 days Problem List As Of Date: 07/08/2025 (None) Prescriptions ordered this encounter Disp Refills Start End AMOXICILLIN 500 MG CAPSULE 21 c* 0 07/08/2025 07/15/2025 Route: PO Sig: Take 1 capsule by mouth every 8 hours for 7 days. Level of Service: OFFICE/OUTPATIENT ESTABLISHED MOD [facility] 30 MIN [77732] Encounter Status:Closed by POP TRUJILLO on 07/08/25 Normal [facility] Serum human chorionic gonado tropin detection for pregnancyOrdered By: Genia Diaz on 07-06-2025 HCG ( test) Ql 362 mIU/mL High <9 [facility] Comment on above: Gestational Age0.2-1 Week: 5-50 mIU/mL1-2 Weeks: 50-500 mIU/mL2-3 Weeks: 100-5000 mIU/mL3-4 Weeks: 500-10,000 mIU/mL4-5 Weeks:1000-50,000 mIU/mL5-6 Weeks: 10,000-100,000 mIU/mL6-8 Weeks: 15,000-200,000 mIU/mL2-3 Months:10,000-100,000 mIU/mL hCG Titer Quant., Serumon HCG QUANT. 362 mIU/mL High <9 non-preg [facility] Comment on above: Result Comment: Gest ational Age 0.2-1 Week: 5-50 mIU/mL 1-2 Weeks: 50-500 mIU/mL 2-3 Weeks: 100-5000 mIU/mL 3-4 Weeks: 500-10,000 mIU/mL 4-5 Weeks:1000-50,000 mIU/mL 5-6 Weeks: 10,000-100,000 mIU/mL 6-8 Weeks: 15,000-200,000 mIU/mL 2-3 Months:10,000-100,000 mIU/mL Performed By: #### L 700.8000 ####[facility] [id number] [place], [address] OV 03-12-2025 [facility] NEO BURR ([id number]) 4 F Date Time Provider Department 03/12/25 4:45 PM [facility] During your visit today, we recorded the following information about you: Temperature Pulse Respiration Blood pressure 98.6 degrees 65/minute 20/minute 121/74 Weight Last Period 99 kg 02/19/25 Pop Argueta MD 03/12/2025 5:11 PM Signed [facility] Subjective Neo Pelletier Leno is a 24 year old female. Patient [...] Order(s):OVA + PARA MICROSCOPIC [SQOVAP] Order #: [id number]. #:[id number] Prescriptions as of 03/12/2025 - sulfamethoxazole-trimet hoprim (BACTRIM,SEPTRA) 200-40 mg/5 mL suspension Take 4 tsp twice daily for 10 days Problem List As Of Date: 03/12/2025 (None) Level of Service: OFFICE/OUTPATIENT ESTABLISHED LOW [facility] 20 MIN [64982] Encounter Status:Closed by POP ARGUETA on 03/12/25 Normal [facility] Ankle min 3 Viewson 02-21-20 25 Ankle min 3 Views [facility] Imaging Services [address] [place] [address] Ankle min 3 Views MR#: [id number] Acct: [id number] Name: NEO BURR Rep #: [id number] : 2000 F 24 From: Amadou Duran MD PCP: Care Physician,No Primary Status: REG ER Study: Ankle min 3 Views Date of Exam: 02/20/25 Exam# [id number] Ordering Dr: Jess Coker DO PROCEDURE: ANKLE MIN 3 VIEWS 02/20/2025 REASON FOR EXAM: PAIN TECHNIQUE: 3 views of the left ankle COMPARISON: 07/10/2019 FINDINGS: No fracture, dislocation or joint effusion. Appearance of lateral ankle soft tissue swelling. Joint spaces appear within limits. RAD/Ankle min 3 Views IMPRESSION: No fracture, dislocation or joint effusion. Appearance of lateral ankle soft tissue swelling. Reading Location: [id number] CC: Dr. Jess Coker DO; No Primary Care Physician Transfill Technician: Signed Normal [facility] Emergency Department Summary on 02-20-2025 Emergency Department Summary [facility] Medical Records Department [address] [place] [address] Emergency Department Summary 02/20/25 MR#: [id number] Acct: [id number] Name: NEO BURR Rep #: [id number] : 2000 24 From: Jess Coker DO [...] foot as well. She has been ambulatory. [facility] Medical History Incomplete Broken teeth Depression Marijuana [...] Paredes) current occupational status: employed current occupation: [employer] pets and animals: Yes sexually active: Yes [...] Endocrine Endocrinology: Denies polydipsia, polyphagia or polyuria Hematologic/Lymphatic Hematologic/Lymphatic: Denies easy bleeding, easy bruising or lymphadenopathy [...] lateral mal (more content not included)... Normal [facility] Tibia Fibula 2 Viewson 02-20 Tibia Fibula 2 Views [facility] Imaging Services [address] [place] [address] Tibia Fibula 2 Views MR#: [id number] Acct: [id number] Name: NEO BURR Rep #: [id number] : 2000 F 24 From: Amadou Duran MD PCP: Care Physician,No Primary Status: REG ER Study: Tibia Fibula 2 Views Date of Exam: 02/20/25 Exam# [id number] Ordering Dr: Jess Coker DO EXAM: Diagnostic tibia fibula two-view x-ray CLINICAL HISTORY: Pain TECHNIQUE: AP and lateral two views of the left tibia and fibula FINDINGS: No fracture. Suggestion of diffuse pretibial soft tissue swelling on the lateral view. RAD/Tibia Fibula 2 Views IMPRESSION: No fracture. Suggestion of diffuse pretibial soft tissue swelling on the lateral view. Reading Location: [id number] CC: Dr. Jess Coker DO; No Primary Care Physician Transfill Technician: Signed Normal [facility] CNOVon 12-25-2024 CNOV Office Visit (UCWSTR ) NEO BURR ([id number]) 4 F Date Time Provider Department 12/25/24 5:00 PM HERMELINDA MEDINA [facility] During your visit today, we recorded the following information about you: Temperature Pulse Respiration Blood pressure 102.3 degrees 113/minute 18/minute 144/81 Weight 97.4 kg Hermelinda Medina APRN.BASKET WEAVER 12/25/2024 4:53 PM Signed Subjective Pt is [...] two times a day for 10 days. sulfamethoxazole-trimet hoprim (BACTRIM,SEPTRA) 200-40 mg/5 mL suspension Take 4 [...] A MOLECULAR (POC) Debra Stanley TEACHING PROVIDER (Physician/PA/COMMERCIAL RELATIONSHIP MANAGER) NOTE OF PERSONAL INVOLVEMENT IN CARE: I have personally seen and examined the patient and performed the medical decision-making components. I have reviewed the Advanced Practice Registered Nurse (COMMERCIAL RELATIONSHIP MANAGER) Student's documentation and verified the findings in the note as written. Any additions or changes are noted in bold/italics. Signature: Hermelinda Medina Date: 12/25/2024 Time: 4:52 PM Hermelinda Medina APRN.BASKET WEAVER 12/25/2024 4:52 PM Addendum 1. Strep pharyngitis [...] gargles, throa (more content not included)... Normal [facility] STREP A MOLECULAR (POC)on Interpretation and review of laboratory results Abnormal [facility] Procedural Control Valid [facility] Strep A (POCT) Positive Abnormal Negative [facility] Cervical or vagninal specime n microscopic examination by cytology stain (reported asOrdered By: Genia Diaz on 12-19-2023 Cytology report Cyto stain Doc (Cvx/Vag) Comment . [facility] Comment on above: The Pap smear [...] Ab+HIV1 p24 Ag IA Ql Non-Reactive Nonreactive [facility] Herpes simplex virus (HSV) t ype 1 IgG antibody assayOrdered By: Genia Diaz on 12-19-2023 HSV 1 IgG Qn (S) 55.60 index 0.00-0.90 [facility] Comment on above: Negative <0.91 Equiv ocal 0.91 - 1.09 Positive >1.09 Note: Negative indicates no antibodies detected to HSV-1. Equivocal may suggest early infection. If clinically appropriate, retest at later date. Positive indicates antibodies detected to HSV-1. Laboratory - CytologyOrdered By: Genia Diaz on 12-19-2023 Cloth Mercerizing Supervisor Cyto stain Nom (Cvx/Vag) [ID] Comment . [facility] Comment on above: Teddy Lynn totechnologist Laboratory - Miscellaneous t estsOrdered By: Genia Diaz on 12-19-2023 Service comment (Unsp spec) [Interp] . . [facility] No Panel InformationOrdered By: Genia Diaz on 12-19-2023 Human Papillomavirus Screen Comment . [facility] Comment on above: The HPV DNA reflex c riteria were not met with this specimenresult therefore, no HPV testing was performed.Performed at: [facility] [place] [id number] Director: Isidra Jones MD, Phone: [phone] Hepatitis C Antibody Non-Reactive Nonreactive [facility] Comment on above: Non Reactive: < 0.8 Equivocal: >/= 0.8 to < 1.0 Reactive: >/= 1.0The CDC recommends that a reactive/equivocal HCV antibody result be followed up by the HCV Nucleic Acid Amplificationtest (233144) No Panel Informationon 12-19 POC Trichomonas (Rapid) Positive [facility] Serum Treponema species anti body detectionOrdered By: Genia Diaz on 12-19-2023 Treponema sp Ab Ql (S) Non-Reactive [facility] Serum herpes simplex virus 2 antibody assay by immunoassay (units/volume)Ordered By: Genia Diaz on 12-19-2023 HSV 2 Ab IA Qn (S) < 0.91 index 0.00-0.90 [facility] Comment on above: Negative <0.91 Equiv [...] testing results should be clinically correlated.Performed at: [address] [id number] Director: Tanmay Bender PhD, Phone: [phone] Thin prep Papanicolaou smear with manual screeningOrdered By: Genia Diaz on 12-19-2023 Thin prep Papanicolaou smear with manual screening Comment . [facility] Comment on above: NEGATIVE FOR INTRAEP ITHELIAL LESION OR MALIGNANCY.TRICHOMONAS VAGINALIS IS PRESENT. This liquid based Th inPrep(R) pap test was screened withthe use of an image guided system. Neisseria gonorrhoeae genita l PCROrdered By: Genia Diaz on 06-11-2023 N. gonorrhoeae DNA KIRILL+probe Ql (Genital specimen) [facility] No Panel InformationOrdered By: Genia Diaz on 06-11-2023 Chlamydia trachomatis (PCR) [facility] Absolute lymphocyte countOrd ered By: Luci Arreguin on 05-25-2023 Lymphocytes Auto (Unsp spec) [#/Vol] 2.35 10*3/uL 0.83-4.51 [facility] Basophil percentageOrdered B y: Luci Arreguin on 05-25-2023 Basophils/100 WBC (Bld) 0.3 % 0-1 [facility] Eosinophils/100 WBC (Bld) 0.9 % 0-5 [facility] Neutrophils (Bld) [#/Vol] 10.4 10*3/uL 2.0-7.7 [facility] Neutrophils/100 WBC (Bld) 74.5 % 47-70 [facility] WBC (Bld) [#/Vol] 14.0 10*3/uL 4.4-11.0 [facility] Blood erythrocytes count (nu mber/volume)Ordered By: Luci Arreguin on 05-25-2023 RBC (Bld) [#/Vol] 4.36 10*6/uL 4.2-5.4 [facility] Blood hemoglobin measurement (mass/volume)Ordered By: Luci Arreguin on 05-25-2023 Hemoglobin (Bld) [Mass/Vol] 12.2 g/dL 12.0-15.0 [facility] Blood lymphocytes/100 leukoc ytesOrdered By: Luci Arreguin on 05-25-2023 Lymphocytes/100 WBC (Bld) 16.8 % 19-41 [facility] Blood monocytes/100 leukocyt esOrdered By: Luci Arreguin on 05-25-2023 Monocytes/100 WBC (Bld) 7.1 % 0-10 [facility] Blood platelet mean volumeOr dered By: Luci Arreguin on 05-25-2023 Platelet mean volume (Bld) [Entitic vol] 9.5 fL 6.2-12.0 [facility] Determination of erythrocyte mean corpuscular volume (MCV)Ordered By: Luci Arreguin on 05-25-2023 MCV (RBC) [Entitic vol] 84.9 fL 81-99 [facility] Hematocrit Auto (Bld) [Volum e fraction]Ordered By: Luci Arreguin on 05-25-2023 Hematocrit (Bld) [Volume fraction] 37.0 % 37-47 [facility] Laboratory - Hematology and Cell countsOrdered By: Luci Arreguin on 05-25-2023 Erythrocyte distribution width (RBC) [Entitic vol] 40.5 fL 35.1-43.9 [facility] Erythrocyte distribution width (RBC) [Ratio] 13.2 % 11.6-14.6 [facility] Immature granulocytes/100 WBC (Bld) 0.400 % 0.0-0.9 [facility] Comment on above: IG% - Immature Granu locytes (promyelocytes, myelocytes and metamyelocytes) > 1% indicates that a LEFT SHIFT is Present. MCH (RBC) [Entitic mass] 28.0 pg 27.0-32.0 [facility] Nucleated RBC/100 WBC (Bld) [Ratio] 0 % 0-5 [facility] MCHC Auto (RBC) [Mass/Vol]Or dered By: Luci Arreguin on 05-25-2023 MCHC (RBC) [Mass/Vol] 33.0 g/dL 32-36 [facility] Platelets bldOrdered By: Zachary Arreguin on 05-25-2023 Platelets (Bld) [#/Vol] 393 10*3/uL 150-450 [facility] Absolute lymphocyte countOrd ered By: Norris Fernandez on 05-08-2023 Lymphocytes Auto (Unsp spec) [#/Vol] 2.33 10*3/uL 0.83-4.51 [facility] Basophil percentageOrdered B y: Norris Fernandez on 05-08-2023 Basophil percentage 0 SEEN /hpf 0-5 [facility] Basophils/100 WBC (Bld) 0.4 % 0-1 [facility] Chloride [Moles/Vol] 110 mmol/L 98-107 [facility] Eosinophils/100 WBC (Bld) 1.0 % 0-5 [facility] Glucose [Mass/Vol] 90 mg/dL 74-106 [facility] Neutrophils (Bld) [#/Vol] 8.5 10*3/uL 2.0-7.7 [facility] Neutrophils/100 WBC (Bld) 70.2 % 47-70 [facility] Potassium [Moles/Vol] 3.9 mmol/L 3.5-5.1 [facility] Sodium [Moles/Vol] 138 mmol/L 136-145 [facility] WBC (Bld) [#/Vol] 12.1 10*3/uL 4.4-11.0 [facility] Bilirubin Test strip Ql (U)O rdered By: Norris Fernandez on 05-08-2023 Bilirubin Ql (U) Negative Negative [facility] Blood erythrocytes count (nu mber/volume)Ordered By: Norris Fernandez on 05-08-2023 RBC (Bld) [#/Vol] 4.61 10*6/uL 4.2-5.4 [facility] Blood hemoglobin measurement (mass/volume)Ordered By: Norris Fernandez on 05-08-2023 Hemoglobin (Bld) [Mass/Vol] 12.9 g/dL 12.0-15.0 [facility] Blood lymphocytes/100 leukoc ytesOrdered By: Norris Fernandez on 05-08-2023 Lymphocytes/100 WBC (Bld) 19.3 % 19-41 [facility] Blood monocytes/100 leukocyt esOrdered By: Norris Fernandez on 05-08-2023 Monocytes/100 WBC (Bld) 8.8 % 0-10 [facility] Blood platelet mean volumeOr dered By: Norris Fernandez on 05-08-2023 Platelet mean volume (Bld) [Entitic vol] 9.7 fL 6.2-12.0 [facility] Determination of erythrocyte mean corpuscular volume (MCV)Ordered By: Norris Fernandez on 05-08-2023 MCV (RBC) [Entitic vol] 87.0 fL 81-99 [facility] Hematocrit Auto (Bld) [Volum e fraction]Ordered By: Norris Fernandez on 05-08-2023 Hematocrit (Bld) [Volume fraction] 40.1 % 37-47 [facility] Ketones Test strip Ql (U)Ord ered By: Norris Fernandez on 05-08-2023 Ketones Ql (U) Negative Negative [facility] Laboratory - Chemistry and C hemistry - challengeOrdered By: Norris Fernandez on 05-08-2023 CO2 [Moles/Vol] 23.0 mmol/L 21.0-32.0 [facility] Urea nitrogen/Creatinine [Mass ratio] 12.4 mg/mg 10-20 [facility] Laboratory - Hematology and Cell countsOrdered By: Norris Fernandez on 05-08-2023 Erythrocyte distribution width (RBC) [Entitic vol] 41.8 fL 35.1-43.9 [facility] Erythrocyte distribution width (RBC) [Ratio] 13.2 % 11.6-14.6 [facility] Immature granulocytes/100 WBC (Bld) 0.300 % 0.0-0.9 [facility] Comment on above: IG% - Immature Granu locytes (promyelocytes, myelocytes and metamyelocytes) > 1% indicates that a LEFT SHIFT is Present. MCH (RBC) [Entitic mass] 28.0 pg 27.0-32.0 [facility] Nucleated RBC/100 WBC (Bld) [Ratio] 0 % 0-5 [facility] MCHC Auto (RBC) [Mass/Vol]Or dered By: Norris Fernandez on 05-08-2023 MCHC (RBC) [Mass/Vol] 32.2 g/dL 32-36 [facility] Mucus LM Ql (Urine sed)Order ed By: Norris Fernandez on 05-08-2023 Mucus Ql (Urine sed) 0 SEEN /hpf [facility] Nitrite Test strip Ql (U)Ord ered By: Norris Fernandez on 05-08-2023 Nitrite Ql (U) Negative Negative [facility] No Panel InformationOrdered By: Norris Fernandez on 05-08-2023 Estimated Creatinine Clearance Calc 147.38 ml/min [facility] Estimated GFR (MDRD) Amer 174 mL/min >60 [facility] Comment on above: GFR Calc Estimated GFR (MDRD) Non-Af Amer 144 mL/min >60 [facility] Comment on above: Non- GFR Calc Platelets bldOrdered By: Willow Fernandez on 05-08-2023 Platelets (Bld) [#/Vol] 396 10*3/uL 150-450 [facility] Protein Test strip Ql (U)Ord ered By: Norris Fernandez on 05-08-2023 Protein Ql (U) 15 mg/dl Negative [facility] Serum or plasma calcium francisca urement (mass/volume)Ordered By: Norris Fernandez on 05-08-2023 Calcium [Mass/Vol] 9.0 mg/dL 8.5-10.1 [facility] Serum or plasma choriogonado tropin detectionOrdered By: Norris Fernandez on 05-08-2023 HCG ( test) Ql 3918 mIU/mL <4 [facility] Comment on above: hCG levels with Gest ational AgeGestational Age hCG mIU/mL (IU/L)0.2 - 1 week 5 - 501-2 weeks 50 - 5002-3 weeks 100 - 48993-6 weeks 500 - 887111-9 weeks 1000 - 152348-0 weeks 43106 - 100,0006-8 weeks 11755 - 200,0002-3 months 76018 - 100,000 Serum or plasma creatinine m easurement (mass/volume)Ordered By: Norris Fernandez on 05-08-2023 Creatinine [Mass/Vol] 0.57 mg/dL 0.55-1.02 [facility] Comment on above: The validity of the calculated GFR & GFRAA in patients over 70 years has not been determined. Clinical correlation is essential. Serum or plasma urea nitroge n measurement (mass/volume)Ordered By: Norris Fernandez on 05-08-2023 Urea nitrogen [Mass/Vol] 7 mg/dL 7-18 [facility] Squamous epithelial cells de tection in urine sediment by light microscopyOrdered By: Norris Fernandez on 05-08-2023 Epithelial cells.squamous LM Ql (Urine sed) 0-5 SEEN /hpf 5-10 [facility] Thin prep Papanicolaou smear with manual screeningOrdered By: Norris Fernandez on 05-08-2023 Thin prep Papanicolaou smear with manual screening 5 5-15 [facility] Urine blood detectionOrdered By: Norris Fernandez on 05-08-2023 RBC Ql (U) 50 /ul Negative [facility] RBC Ql (U) 0-5 SEEN /hpf 0-5 [facility] Urine clarityOrdered By: Willow Fernandez on 05-08-2023 Clarity (U) Clear Clear [facility] Urine color determinationOrd ered By: Norris Fernandez on 05-08-2023 Color (U) Yellow Yellow [facility] Urine glucose detectionOrder ed By: Norris Fernandez on 05-08-2023 Glucose Ql (U) Normal mg/dl Normal [facility] Urine leukocyte esterase det ection by dipstickOrdered By: Norris Fernandez on 05-08-2023 Leukocyte esterase Test strip Ql (U) Negative Negative [facility] Urine pHOrdered By: Norris ospina on 05-08-2023 pH (U) 7.0 [pH] 5.0 - 8.0 [facility] Urine sediment bacteria coun t by microscopy (number/high power field)Ordered By: Norris Fernandez on 05-08-2023 Bacteria LM.HPF (Urine sed) [#/Area] RARE /hpf None Seen [facility] Urine specific gravity measu rementOrdered By: Norris Fernandez on 05-08-2023 Specific gravity (U) [Rel density] 1.010 1.002-1.030 [facility] Urobilinogen Auto test strip Ql (U)Ordered By: Norris Fernandez on 05-08-2023 Urobilinogen Ql (U) Normal mg/dl Normal [facility] ED Note-Provideron 8 ED Note-Provider Normal [facility] [place] Pat Eduon 01-31-2018 [facility] Normal [facility] [place] Patient Summary Documentson 01-31-2018 Patient Summary Documents Normal [facility]) Vital Signs Date Time Vital Sign Value Performing Clinician Facility 08-17-2025 13:47-0400 Body height 167.64 cm No Primary Care Physician [facility] 08-17-2025 13:47-0400 Body mass index (BMI) [Ratio] 34.5 kg/m2 No Primary Care Physician [facility] 08-17-2025 13:47-0400 Body weight 97.15 kg No Primary Care Physician [facility] 08-17-2025 13:47-0400 Diastolic blood pressure 77 mm[Hg] No Primary Care Physician [facility] 08-17-2025 13:47-0400 Systolic blood pressure 126 mm[Hg] No Primary Care Physician [facility] 07-08-2025 08:42-0400 Body temperature 98.4 [degF] Pop Trujillo PA-C Work Phone: [facility] 07-08-2025 08:42-0400 Body weight 98.6 kg Pop Trujillo PA-C Work Phone: [facility] 07-08-2025 08:42-0400 Diastolic blood pressure 68 mm[Hg] Pop Maria T PA-C Work Phone: [facility] 07-08-2025 08:42-0400 Heart rate 90 /min Pop Maria T PA-C Work Phone: [facility] 07-08-2025 08:42-0400 Respiratory rate 18 /min Pop Maria T PA-C Work Phone: [facility] 07-08-2025 08:42-0400 SaO2% (BldA) [Mass fraction] 98 % Pop Maria T PA-C Work Phone: [facility] 07-08-2025 08:42-0400 Systolic blood pressure 120 mm[Hg] Pop Maria T PA-C Work Phone: [facility] 03-12-2025 16:51-0400 Body temperature 98.6 [degF] Pop Argueta MD Work Phone: [facility] 03-12-2025 16:51-0400 Body weight 99 kg Pop Argueta MD Work Phone: [facility] 03-12-2025 16:51-0400 Diastolic blood pressure 74 mm[Hg] Pop Argueta MD Work Phone: [facility] 03-12-2025 16:51-0400 Heart rate 65 /min Pop Argueta MD Work Phone: [facility] 03-12-2025 16:51-0400 Respiratory rate 20 /min Pop Argueta MD Work Phone: [facility] 03-12-2025 16:51-0400 SaO2% (BldA) [Mass fraction] 98 % Pop Argueta MD Work Phone: [facility] 03-12-2025 16:51-0400 Systolic blood pressure 121 mm[Hg] Pop Argueta MD Work Phone: [facility] 02-20-2025 20:18-0400 Body temperature 98.2 [degF] No Primary Care Physician [facility] 02-20-2025 20:18-0400 Diastolic blood pressure 60 mm[Hg] No Primary Care Physician [facility] 02-20-2025 20:18-0400 Heart rate 65 /min No Primary Care Physician [facility] 02-20-2025 20:18-0400 Respiratory rate 16 /min No Primary Care Physician [facility] 02-20-2025 20:18-0400 SaO2% (BldA) [Mass fraction] 98 % No Primary Care Physician [facility] 02-20-2025 20:18-0400 Systolic blood pressure 130 mm[Hg] No Primary Care Physician [facility] 02-20-2025 19:38-0400 Body height 167.64 cm No Primary Care Physician [facility] 02-20-2025 19:38-0400 Body mass index (BMI) [Ratio] 35.3 kg/m2 No Primary Care Physician [facility] 02-20-2025 19:38-0400 Body weight 99.2 kg No Primary Care Physician [facility] 12-25-2024 16:32-0500 Body temperature 102.31 [degF] Hermelinda Praisler-Wood COMMERCIAL RELATIONSHIP MANAGER.BASKET WEAVER Work Phone: [facility] 12-25-2024 16:32-0500 Body weight 97.4 kg Hermelinda Praisler-Wood COMMERCIAL RELATIONSHIP MANAGER.BASKET WEAVER Work Phone: [facility] 12-25-2024 16:32-0500 Diastolic blood pressure 81 mm[Hg] Hermelinda Praisler-Wood COMMERCIAL RELATIONSHIP MANAGER.BASKET WEAVER Work Phone: [facility] 12-25-2024 16:32-0500 Heart rate 113 /min Hermelinda Praisler-Wood COMMERCIAL RELATIONSHIP MANAGER.BASKET WEAVER Work Phone: [facility] 12-25-2024 16:32-0500 Respiratory rate 18 /min Hermelinda Praisler-Wood COMMERCIAL RELATIONSHIP MANAGER.BASKET WEAVER Work Phone: [facility] 12-25-2024 16:32-0500 SaO2% (BldA) [Mass fraction] 97 % Hermelinda Praisler-Wood COMMERCIAL RELATIONSHIP MANAGER.BASKET WEAVER Work Phone: [facility] 12-25-2024 16:32-0500 Systolic blood pressure 144 mm[Hg] Hermelinda Medina APRN.BASKET WEAVER Work Phone: [facility] 12-19-2023 14:10-0500 Body height 167.64 cm No Primary Care Physician [facility] 12-19-2023 14:04-0500 Body mass index (BMI) [Ratio] 31.8 kg/m2 No Primary Care Physician [facility] 12-19-2023 14:04-0500 Body weight 89.35 kg No Primary Care Physician [facility] 12-19-2023 14:04-0500 Diastolic blood pressure 84 mm[Hg] No Primary Care Physician [facility] 12-19-2023 14:04-0500 Systolic blood pressure 122 mm[Hg] No Primary Care Physician [facility] 10-01-2023 17:43-0500 Body temperature 97.9 [degF] Jayson Powers COMMERCIAL RELATIONSHIP MANAGER.BASKET WEAVER Work Phone: [facility] 10-01-2023 17:43-0500 Body weight 91.54 kg Jayson Powers COMMERCIAL RELATIONSHIP MANAGER.BASKET WEAVER Work Phone: [facility] 10-01-2023 17:43-0500 Diastolic blood pressure 72 mm[Hg] Jayson Powers COMMERCIAL RELATIONSHIP MANAGER.BASKET WEAVER Work Phone: [facility] 10-01-2023 17:43-0500 Heart rate 92 /min Jayson Powers COMMERCIAL RELATIONSHIP MANAGER.BASKET WEAVER Work Phone: [facility] 10-01-2023 17:43-0500 Respiratory rate 21 /min Jayson Poewrs COMMERCIAL RELATIONSHIP MANAGER.BASKET WEAVER Work Phone: [facility] 10-01-2023 17:43-0500 SaO2% (BldA) [Mass fraction] 99 % Jayson Powers COMMERCIAL RELATIONSHIP MANAGER.BASKET WEAVER Work Phone: [facility] 10-01-2023 17:43-0500 Systolic blood pressure 110 mm[Hg] Jayson Powers COMMERCIAL RELATIONSHIP MANAGER.BASKET WEAVER Work Phone: [facility] 06-11-2023 11:49-0400 Body height 167.64 cm No Primary Care Physician [facility] 06-11-2023 11:48-0400 Body mass index (BMI) [Ratio] 33.4 kg/m2 No Primary Care Physician [facility] 06-11-2023 11:48-0400 Body weight 94 kg No Primary Care Physician [facility] 06-11-2023 11:48-0400 Diastolic blood pressure 82 mm[Hg] No Primary Care Physician [facility] 06-11-2023 11:48-0400 Systolic blood pressure 127 mm[Hg] No Primary Care Physician [facility] 05-25-2023 12:08-0400 Body temperature 98.2 [degF] No Primary Care Physician [facility] 05-25-2023 12:08-0400 Diastolic blood pressure 54 mm[Hg] No Primary Care Physician [facility] 05-25-2023 12:08-0400 Heart rate 60 /min No Primary Care Physician [facility] 05-25-2023 12:08-0400 Respiratory rate 16 /min No Primary Care Physician [facility] 05-25-2023 12:08-0400 SaO2% (BldA) [Mass fraction] 98 % No Primary Care Physician [facility] 05-25-2023 12:08-0400 Systolic blood pressure 119 mm[Hg] No Primary Care Physician [facility] 05-25-2023 08:25-0400 Body height 167.64 cm No Primary Care Physician [facility] 05-25-2023 08:25-0400 Body mass index (BMI) [Ratio] 34 kg/m2 No Primary Care Physician [facility] 05-25-2023 08:25-0400 Body weight 95.7 kg No Primary Care Physician [facility] 05-22-2023 08:23-0400 Body mass index (BMI) [Ratio] 34.4 kg/m2 No Primary Care Physician [facility] 05-22-2023 08:23-0400 Body weight 96.72 kg No Primary Care Physician [facility] 05-22-2023 08:23-0400 Diastolic blood pressure 62 mm[Hg] No Primary Care Physician [facility] 05-22-2023 08:23-0400 Systolic blood pressure 102 mm[Hg] No Primary Care Physician [facility] 05-08-2023 13:58-0400 Body mass index (BMI) [Ratio] 33.9 kg/m2 No Primary Care Physician [facility] 05-08-2023 13:58-0400 Body weight 95.3 kg No Primary Care Physician [facility] 05-08-2023 13:19-0400 Body temperature 95.2 [degF] No Primary Care Physician [facility] 05-08-2023 13:19-0400 Diastolic blood pressure 79 mm[Hg] No Primary Care Physician [facility] 05-08-2023 13:19-0400 Heart rate 64 /min No Primary Care Physician [facility] 05-08-2023 13:19-0400 Respiratory rate 18 /min No Primary Care Physician [facility] 05-08-2023 13:19-0400 SaO2% (BldA) [Mass fraction] 99 % No Primary Care Physician [facility] 05-08-2023 13:19-0400 Systolic blood pressure 129 mm[Hg] No Primary Care Physician [facility] Encounters Encounter Date Encounter Type Care Provider Facility Start: 09-18-2025 ambulatory No Primary Car e Physician Facility:[facility] Start: 08-17-2025 End: 08-17-2025 ambulatory No Primary Care Physician -[facility] Start: 08-17-2025 End: 08-17-[address] Luci Arreguin MD -[facility] Work Phone: Start: 08-17-2025 End: 08-17-2025 ambulatory Luci Arreguin Facility:[facility] Start: 07-31-2025 End: 07-31-2025 ambulatory No Primary Care Physician -[facility] Start: 07-31-2025 End: 07-31-2025 Patient encounter procedure Genia Diaz RESIDENT CARE SUPERVISOR-C -[facility]tras[facility] Work Phone: Start: 07-31-2025 End: 07-31-2025 ambulatory Genia Diaz Facility:[facility] Start: 07-24-2025 End: 07-24-2025 ambulatory No Primary Care Physician -Laboratory Start: 07-24-2025 End: 07-24-2025 Patient encounter procedure Genia Diaz RESIDENT CARE SUPERVISOR-C -Laboratory Work Phone: Start: 07-24-2025 End: 07-24-2025 ambulatory [facility] Facility:[facility] Start: 07-08-2025 End: 07-08-2025 Office outpatient visit 25 minutes Pop GILLIAMC Work Phone: [facility] Comment on above: Pain, dental (Primar y Dx) Start: 07-08-2025 End: 07-08-2025 ambulatory [facility] Facility:[facility] Start: 07-06-2025 End: 07-06-2025 ambulatory No Primary Care Physician -Laboratory Start: 07-06-2025 End: 07-06-2025 Patient encounter procedure Genia Diaz RESIDENT CARE SUPERVISOR-C -Laboratory Work Phone: Start: 07-06-2025 End: 07-06-2025 [facility] Facility:[facility] Start: 03-12-2025 End: 03-12-2025 Office outpatient visit 15 minutes Pop Argueta MD Work Phone: [facility] Comment on above: Worms in stool (Prim kishor Dx) Start: 03-12-2025 End: 03-12-2025 ambulatory [facility] Facility:[facility] Start: 02-20-2025 End: 02-20-2025 Emergency department patient visit No Primary Care Physician -Emergency Department Work Phone: Start: 12-25-2024 End: 12-25-2024 Office outpatient visit 15 minutes Hermelinda Medina APRN.CNP Work Phone: [facility] Comment on above: Strep pharyngitis (P rimary Dx); Sore throat Start: 12-25-2024 End: 12-25-2024 ambulatory [facility] Facility:[facility] Start: 12-19-2023 End: 12-19-2023 ambulatory No Primary Care Physician [facility] Work Phone: Start: 12-19-2023 End: 12-19-2023 Patient encounter procedure No Primary Care Physician [facility] Work Phone: Start: 10-01-2023 End: 10-01-2023 Office outpatient visit 25 minutes Jayson Gio CRAIG.BASKET WEAVER Work Phone: [facility] Comment on above: Dental infection (Pr imary Dx) Start: 06-11-2023 End: 06-11-2023 ambulatory No Primary Care Physician [facility] Work Phone: Start: 06-11-2023 End: 06-11-2023 Patient encounter procedure No Primary Care Physician [facility]-Laboratory, Specimen Work Phone: Start: 06-11-2023 End: 06-11-2023 Patient encounter procedure No Primary Care Physician [facility] Work Phone: Start: 05-25-2023 Non-patient / Non-visit No [facility] Physician [facility] Start: 05-25-2023 End: 05-25-2023 Admission to same day surgery center No Primary Care Physician [facility] Start: 05-25-2023 End: 05-25-2023 ambulatory No Primary Care Physician [facility] Work Phone: Start: 05-22-2023 End: 05-22-2023 Patient encounter procedure No Primary Care Physician [facility] Work Phone: Start: 05-21-2023 End: 05-21-2023 ambulatory No Primary Care Physician [facility] Work Phone: Start: 05-21-2023 End: 05-21-2023 Patient encounter procedure No Primary Care Physician [facility] Work Phone: Start: 05-08-2023 End: 05-08-2023 Emergency department patient visit No Primary Care Physician [facility]-Emergency Department Work Phone: Start: 01-31-2018 End: 01-31-2018 Emergency department patient visit VIDHYA QUESADA Facility:B Procedures Date Procedure Procedure Detail Performing Clinician Start: 08-17-2025 Hepatitis C antibody measurement No Primary Care Physician Comment on above: Reactive: Presumptiv e evidence of antibodies to HCV. Follow CDC recommendations for supplemental testing.Non-Reactive: Antibodies to HCV were not detected; does not exclude the possibility of exposure to HCVReactive Results are presumptive evidence of antibodies to HCV. Follow CDC recommendations for supplemental testing.Order confirmation testing: HCV Quant by PCR testing - HCVPCR #[id number] Non Reactive: < 0.8 Equivocal: >/= 0.8 to < 1.0 Reactive: >/= 1.0The CDC requires that a reactive/equivocal HCV antibody result be sent out for confirmation. HCV Quant by PCR testing. Start: 08-17-2025 Methadone measurement, urine No Primary Care Physician Start: 08-17-2025 Procedure No Primary Care Physician Start: 08-17-2025 Rubella IgG measurement No Primary Care Physician Comment on above: Antibody Result: Int erpretationNon-Reactive: Non- ImmuneReactive: ImmuneThe following results were obtained with the [employer] Rubella IgG assay. Results from assays of other manufacturers cannot be used interchangeably. Start: 08-17-2025 Serologic test for syphilis No Primary Care Physician Start: 08-17-2025 Urine culture No Primar y Care Physician Start: 07-31-2025 Transvaginal obstetr ic ultrasonography No Primary Care Physician Start: 02-20-2025 X-ray of ankle, thre e [...] P,Tdap,Td Vaccine (10 - Td or Tdap) [facility] Start: 07-27-2025 Influenza vaccination Influenza Vacc ine (#1) [facility] Start: 02-20-2025 [facility] Start: 07-27-2024 Covid-19 Vaccine ( season) Covid-19 Vaccine ( season) [facility] Start: 07-27-2024 Influenza vaccination Influenza Vacc ine (#1) [facility] Start: 12-19-2023 Herpes Simplex Virus Culture Herpes Simplex Virus Culture [facility] Start: 12-19-2023 Chlamydia deoxyribon ucleic acid detection [facility] Start: 12-19-2023 Herpes simplex virus identified in Unspecified specimen by Organism specific culture [facility] Start: 12-19-2023 Liquid based cervica l cytology screening [facility] Start: 2023 Pap Testing Pap Testing [facility] Start: 2023 Screening for malign ant neoplasm of cervix Cervical Cancer Screening [facility] Start: 07-27-2023 Influenza vaccination Influenza Vacc ine (#1) [facility] Start: 05-25-2023 Anesthesia incomplete/missed ANESTH INC/MISSED AB PROC [facility] Start: 05-25-2023 Tx incomplete aborti on any trimester surgical TREATMENT OF MISCARRIAGE [facility] Start: 05-25-2023 Ambulation without limitation [facility] Start: 05-25-2023 Medical regimen orde rs management [facility] Start: 05-25-2023 Medication education [facility] Start: 05-25-2023 Patient discharge [facility] Start: 05-25-2023 Procedure discontinued [facility] Start: 05-25-2023 Taking patient vital signs [facility] Start: 05-25-2023 Vital signs measurements [facility] Start: 05-25-2023 [facility] Start: 11-26-2022 Depression Assessment Depression Ass essment [facility] Start: 2020 Anxiety Screening Anxiety Screening [facility] Start: 2020 Chlamydia Screening (18-24) Chlamydia Screening (18-24) [facility] Start: 2020 Depression Screening Depression Scre ening [facility] Start: 2020 GC (Gonorrhea) Scree cesia (18-24) GC (Gonorrhea) Screening (18-24) [facility] Start: 2020 Hepatitis C Screening Hepatitis C [facility] Start: 2020 Hepatitis C screening Hepatitis C [facility] Start: 2020 HIV Screening HIV Screening [facility] Start: 2020 HIV screening HIV Screening [facility] Start: 2020 Screening for Chlamy gucci trachomatis Chlamydia Screening (18) [facility] Start: 2018 Meningococcal B Vacc ine (1 of 2 - Standard) Meningococcal B Vaccine (1 of 2 - Standard) [facility] Start: 2018 Meningococcal B Vacc ine: Consider Based On Risk (1 of 2 - Patient Seeks Protection) Meningococcal B Vaccine: Consider Based On Risk (1 of 2 - Patient Seeks Protection) [facility] Start: 2016 Peds To Adult Transi tion Annual Assessment Peds To Adult Transition Annual Assessment [facility] Start: 01-26-2016 HPV Vaccine (2 - 2-d ose series) HPV Vaccine (2 - 2-dose series) [facility] Start: 2014 Peds To Adult Transi tion Initial Discussion Peds To Adult Transition Initial Discussion [facility] Start: 03-29-2003 Covid-19 Vaccine (#1) Covid-19 Vacci ne (#1) [facility] Chlamydia deoxyribon ucleic acid detection [facility] Herpes simplex virus identified in Unspecified specimen by Organism specific culture [facility] Neisseria gonorrhoea e rRNA [Presence] in Unspecified specimen by KIRILL with probe detection [facility] Ova and parasites identified in Unspecified specimen by Light microscopy OVA + PARA MICROSCOPIC Microbiology Routine Worms in stool Ordered: 03/12/2025 [facility] Work Phone: Comment on above: Ordered: 03/12/2025 Patient Education [facility] Work Phone: Patient referral [facility] Work Phone: PCR test for Chlamyd ia trachomatis [facility] Immunizations Immunization Date Immunization Notes Care Provider Fa mack 04-02-2020 diphtheria, tetanus toxoids and acellular pertussis vaccine, unspecified formulation Hermelindalaurent Medina APRN.BASKET WEAVER Work Phone: [facility] 04-02-2020 tetanus toxoid, redu livia diphtheria toxoid, and acellular pertussis vaccine, adsorbed No Primary Care Physician [facility] 07-10-2019 tetanus toxoid, redu livia diphtheria toxoid, and acellular pertussis vaccine, adsorbed No Primary Care Physician [facility] 07-28-2015 human papilloma viru s vaccine, quadrivalent Hermelinda Medina APRN.BASKET WEAVER Work Phone: [facility] 07-28-2015 meningococcal polysaccharide (groups A, C, Y and W-135) diphtheria toxoid conjugate vaccine (MCV4P) Hermelinda Medina APRN.BASKET WEAVER Work Phone: [facility] 07-28-2015 tetanus toxoid, redu livia diphtheria toxoid, and acellular pertussis vaccine, adsorbed Hermelinda Medina APRN.BASKET WEAVER Work Phone: [facility] 08-07-2011 influenza, seasonal, injectable, preservative free Hermelinda Medina APRN.BASKET WEAVER Work Phone: [facility] 08-07-2011 influenza virus vacc ine, unspecified formulation Jayson Powers COMMERCIAL RELATIONSHIP MANAGER.BASKET WEAVER Work Phone: [facility] 06-07-2007 DTaP-hepatitis B and poliovirus vaccine Hermelinda Medina APRN.BASKET WEAVER Work Phone: [facility] 06-07-2007 hepatitis A vaccine, pediatric/adolescent dosage, 2 dose schedule Hermelinda Medina APRN.BASKET WEAVER Work Phone: [facility] 06-07-2007 measles, mumps and rubella virus vaccine Hermelinda Medina APRN.BASKET WEAVER Work Phone: [facility] 08-24-2006 hepatitis A vaccine, pediatric/adolescent dosage, 2 dose schedule Hermelinda Medina APRN.BASKET WEAVER Work Phone: [facility] 12-19-2005 diphtheria, tetanus toxoids and acellular pertussis vaccine, unspecified formulation Hermelinda Medina APRN.BASKET WEAVER Work Phone: [facility] 12-19-2005 pneumococcal conjuga te vaccine, 7 valent Hermelinda Praphaniler-Arnaldo COMMERCIAL RELATIONSHIP MANAGER.BASKET WEAVER Work Phone: [facility] 05-16-2004 diphtheria, tetanus toxoids and acellular pertussis vaccine, unspecified formulation Hermelinda Pramyrna-Arnaldo COMMERCIAL RELATIONSHIP MANAGER.BASKET WEAVER Work Phone: [facility] 05-16-2004 haemophilus influenz ae type b vaccine, conjugate unspecified formulation Hermelinda Arias-Arnaldo COMMERCIAL RELATIONSHIP MANAGER.BASKET WEAVER Work Phone: [facility] 05-16-2004 measles, mumps and rubella virus vaccine Hermelinda Praisrosanne-Arnaldo COMMERCIAL RELATIONSHIP MANAGER.BASKET WEAVER Work Phone: [facility] 05-16-2004 poliovirus vaccine, unspecified formulation Hermelinda Arias-Arnaldo COMMERCIAL RELATIONSHIP MANAGER.BASKET WEAVER Work Phone: [facility] 07-20-2003 diphtheria, tetanus toxoids and acellular pertussis vaccine, unspecified formulation Hermelinda Arias-Arnaldo COMMERCIAL RELATIONSHIP MANAGER.BASKET WEAVER Work Phone: [facility] 07-20-2003 haemophilus influenz ae type b conjugate and Hepatitis B vaccine Hermelinda Fernandesisrosanne-Arnaldo COMMERCIAL RELATIONSHIP MANAGER.BASKET WEAVER Work Phone: [facility] 07-20-2003 pneumococcal conjuga te vaccine, 7 valent Hermelinda Arias-Arnaldo COMMERCIAL RELATIONSHIP MANAGER.BASKET WEAVER Work Phone: [facility] 07-20-2003 poliovirus vaccine, inactivated Hermelinda Arias-Arnaldo COMMERCIAL RELATIONSHIP MANAGER.BASKET WEAVER Work Phone: [facility] 02-27-2003 diphtheria, tetanus toxoids and acellular pertussis vaccine, unspecified formulation Hermelinda Arias-Wood COMMERCIAL RELATIONSHIP MANAGER.BASKET WEAVER Work Phone: [facility] 02-27-2003 haemophilus influenz ae type b conjugate and Hepatitis B vaccine Hermelinda Arias-Arnaldo COMMERCIAL RELATIONSHIP MANAGER.BASKET WEAVER Work Phone: [facility] 02-27-2003 pneumococcal conjuga te vaccine, 7 valent Hermelinda Praphaniler-Wood COMMERCIAL RELATIONSHIP MANAGER.BASKET WEAVER Work Phone: [facility] 02-27-2003 poliovirus vaccine, inactivated Hermelinda Medina APRN.BASKET WEAVER Work Phone: [facility] 2002 hepatitis B vaccine, pediatric or pediatric/adolescent dosage Hermelinda Medina APRN.BASKET WEAVER Work Phone: [facility] Payers Date Payer Category Payer Self-pay [id number] 2022 Medicaid [id number] 2008 Unknown [id number] Unknown [id number] Unknown [id number] Unknown [id number] [id number] Unknown [id number] [id number] Unknown [id number] [id number] Unknown [id number] [id number] [id number] Unknown [id number] [id number] Social History Date Type Detail Facility [facility] Start: 05-23-2023 End: 12-19-2023 Tobacco smoking status MSIS Unknown if ever smoked [facility] Start: 2000 Sex Assigned At Female [facility] Start: 10-01-2023 End: 08-07-2025 Tobacco smoking status MSIS Never smoked tobacco [facility] History of tobacco use Passive smoker [facility] Start: 10-01-2023 Tobacco use and exposure Smokeless tobacco non-user [facility] Start: 10-01-2023 End: 03-12-2025 Alcohol intake Not Asked [facility] Start: 11-03-2020 End: 10-01-2023 History of Social function [facility] Start: 11-03-2020 End: 10-01-2023 Tobacco use panel [facility] Start: 06-07-2015 National Score (1-100), lower number is lower risk Not on file [facility] Start: 2000 Sex Assigned At Not on file [facility] Start: 02-20-2025 Tobacco smoking status NHIS Smokes tobacco daily (finding) [facility] Start: 02-20-2025 Sex Female (finding) [facility] NEGATED: Highlighted row [facility] Goals Date Patient Goal Desired Activity /State Functional Status Date Assessment Result Facility 06-07-2015 Are you deaf, or do you have serious difficulty hearing No 06/07/2015 6:41 PM EDT Deja Trujillo MA No [facility] 06-07-2015 Are you blind, or do you have serious difficulty seeing, even when wearing glasses No 06/07/2015 6:41 PM EDT Deja Trujillo MA No [facility] 06-07-2015 Do you have serious difficulty walking or climbing stairs No 06/07/2015 6:41 PM EDT Deja Trujillo MA No [facility] 06-07-2015 Do you have difficul ty dressing or bathing No 06/07/2015 6:41 PM EDT Deja Trujillo MA No [facility] Mental Status Date Assessment Result Facility 05-25-2023 Cognitive function Voice/Name [facility] Work Phone: 06-07-2015 Because of a physica l, mental, or emotional condition, do you have serious difficulty concentrating, remembering, or making decisions No 06/07/2015 6:41 PM EDT Deja Trujillo MA No [facility] Clinical Notes 05-25-2023 to 08-17-2025 Note Date & Type Note Facility 08-17-2025 Evaluation note Diagnosis Onset Date Resolution ADHD acute July 1:46pm Anxiety acute July 1:46pm Family history of autism acute August 17, 2025 1:46pm History of chlamydia acute Jul 1:46pm History of miscarriage, currently acute July 1:46pm Marijuana abuse acute August 17, 2025 1:46pm Obesity affecting acute August 17, 2025 1:46pm acute July 1:46pm Supervision of high-risk acute August 172024 1:46pm Susceptible to Varicella (non-immune), currently in first trimester acute August 17, 2025 1:46pm [facility] Work Phone: 1(284) 532-668509-22-2025 [facility] [address] [place] [address], [address] [place] [address] OFFICE VISIT Date of Service: 08/17/25 MR#: [id number] Acct: [id number] Name: NEO BURR Rep #: [id number] : 2000 Provider: Dr. 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 Is patient in pain?: No Allergies No Known Allergies Allergy (Verified 08/17/25 13:50) Medications ?Medication ?Instructions ?Recorded ?Confirmed ?Type PNV 153-FA 400 mcg-om3 35 mg-dha tab PO 08/07/25 Hist ory 25 mg-epa 5 mg-fish oil chew tablet Last Menstrual Period: 06/05/25 Zika: Zika virus screening: Negative : No PFSH PFSH Medical History Incomplete Broken teeth Depression Marijuana use History of pancreatitis Vaginal delivery Anxiety ADHD Umbilical hernia Accidental fall from building MRSA (methicillin resistant Staphylococcus aureus) Surgical History H/O dilation and curettage Family History Mother Heart disease Maternal Grandfather Heart disease Social History adopted: No household members: children number of children: 1 service: No current occupational status: employed current occupation: [employer] pets and animals: Yes (Avoid litterbox) pets and animals: cat(s) history of recent travel: No sexually active: Yes Smoking Status: Never smoker second hand exposure: Yes alcohol intake: current alcohol intake frequency: holidays/special occasions only details: not while substance use type: marijuana well-balanced diet: daily or most days caffeine: Yes Type: carbonated beverages Number of servings: 1 eating out: 1-3 times/week during the past year weight has: remained stable what type of physical activity do you participate in: none dylan/zoroastrian: None seatbelt use: always do you feel safe at home: Yes additional social history: QAMAR Borrero History 3 Elective abortions Hx Para 1 Spontaneous abortions 1 Hx # Term Pregnancies 1 Ectopic pregnancies Hx # Pregnancies Multiple births # of living children 1 Past Pregnancies Del. Date Name GA/Weeks Outcome Route Bth Weight Gen Labor Lgth Anesthesia Del Locatn Provider FOB Unknown 202207/06/20 Legend 40 live - full term 7#9oz Male epidu [facility] Rodríguez Borrero HPI *EST* NOB LMP 06/05, MORTEZA 03/12 Details: NEO BURR is a 24 year old who presents for New OB visit. OB Visit MORTEZA Calculator Estimated Delivery Date Method Current Current Estimate 03/10/26 Ultrasound #1 10w 5d Comments: HIV: Urine Culture: Sequential Screen: NIPT Screen: Estimated Due Date: 03/10/26 Expected Delivery Route/Plan Labor Preferences- CB/BF classes: [] labor support person: [] labor intervention preferences: [] pain management options preferred: [] cut cord/dad catch: [] : [] PP control planned: [] discussed possible routes of delivery and associated risks: [] special requests: [] Specific Issue/Plans Covid status: [] Flu vaccine: [] Tdap vaccine: [] Rhogam: [] LARC form signed: [] Problem list reviewed and updated with the most current plan of care details and appropriate ordersplaced. Relevant counseling for the gestational age provided. Continue routine care and follow up unless otherwise noted in visit notes/problem list details Initial Weight: Not Recorded Date -?-?-?-?-?-?-?-?-?-?-?-?- EGA Weight BP Urine Prot -?-?-?-?-?-?-?-?-?-?-?-?- Glucose FHR FuHt Pres Dilation -?-?-?-?-?-?-?-?-?-?-?-?- Effaced St Visit Note 08/17/25 -?-?-?-?-?-?-?-?-?-?-?-?- 10w 5d 214 lb 3 oz 126/77 -?-?-?-?-?-?-?-?-?-?-?-?- 170 -?-?-?-?-?-?-?-?-?-?-?-?- SM_ CRL cons wit h LMP Menstrual History Last Menstrual Period: 06/05/25 Reported LMP: definite Normal amount/duration: Yes Frequency in days: 28-29 On hormonal BC at conception: No hCG+: 07/04/25 Antepartum Record Genetic Screening: Congenital Heart Defect: Patient (nephew-valve issues), Neural Tube Defect: Other, Hemoglobinopathy Or Carrier: Other, Cystic Fibrosis: Other, Chromosome Abnormality: Other, Dewayne-Sachs: Other, Hemophilia: Other, Intellectual Disability/Autism: Patient (son autistic), Recurrent Loss/Stillbirth: Other, Other Structural Defect: Other, Other Genetic Disease: Other and Maternal Metabolic Disorder: Other Infection History: Live with someone with TB or Exposed to TB: No, Patient or Partner has history of Genital Herpes: No, Rash or Viral illness since last mentrual period: No, Prior GBS-Infected child: No, History of STD: Yes (chlamydia- Treated), HIV Infection: No, History of Hepatitis: No, Recent travel outside of [place]: No, Concern for hepatitis exposure: No, Varicella immune: No (Non immune) and Covid Vaccinated: No Medical History Medical History: Positive: Psychiatric (anxiety), Depression/ depression (thinks had PPD,not diagnosed), 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), Relevant family history (heart disease Mother & Maternalgrandfather) and Other (obesity) and Negative: Diabetes, Hypertension, Heart disease, Auto-immune disorder, Kidney disease/UTI, Neurologic/epilepsy, Hepatitis/liver disease, Varicosities/phlebitis, Thyroid dysfunction, Trauma/domestic violence, History of blood transfusions, D (Rh) Sensitized, Pulmonary (e.g.,TB,Asthma), Seasonal allergies, Drug/latex allergies/reactions, Breast, Operations/hospitalizations, Anesthetic complications, History of abnormal pap, Uterine anomaly/oumar, Infertility andAnti-retroviral treatment ACOG First Trimester First Trimester: Desire for , Alcohol, Tobacco Cessation, Illicit/Recreational Drug/Substance Use, Intimate Partner Violence, Barriers to care, Unstable Housing, Communication Barriers, Environmental/Work Hazards, Anticipated Course of Care, Nurtrition and weight gain, Toxoplasmosis Precations, Use of Any medications, Sexual activity, Exercise, Dental Care, Sauna/Hot tub use, Seat Belt use, Childbirth classes/Hospital facilities, Travel, Indications for Ultrasound and Screening for Aneuploidy; Discussed Second Trimester Second Trimester: Signs and Symptoms of Labor, Selecting a care provider, Reproductive Life Planning & Contreception, Care Planning, Tobacco Cessation, Depression/Anxiety and Intimate Partner Violence Third Trimester Third Trimester: Pain Management Plans, Labor support person(s), Immediate Larc and Movement Monitoring; Discussed Trial of Labor after Counseling and Discussed Circumcision preference ROS Const Denies fatigue, Denies fever(s), Denies headache(s), Denies increased appetite, Denies poor appetite, Denies weight gain and Denies weight loss ENT Denies headache(s) Card Denies chest pain and Denies dyspnea Resp Denies cough and Denies dyspnea GI Reports as per HPI, Denies abdominal pain, Denies constipation, Denies nausea and Denies vomiting Reports as per HPI, Denies difficulty voiding, Denies dysuria, Denies nipple discharge, Denies urinary frequency, Denies urinary incontinence, Denies urinary hesitancy, Denies urinary urgency, Deniesvaginal discharge, Denies vaginal dryness, Denies vaginal odor and Denies vaginal pruritus Skin/Breast Denies change in hair, Denies breast mass, Denies breast pain, Denies breast skin changes and Denies nipple discharge Neuro No headache(s) Endo Denies fatigue Exam Const General: cooperative, healthy appearing, comfortable, no acute distress and well developed Nutritional Appearance: average body habitus Orientation: alert HENMT Head: normal to inspection and normocephalic Neck Neck: normal visual inspection and trachea midline Thyroid: thyroid normal Resp Effort & Inspection: normal respiratory effort GI Inspection: normal to inspection and non-distended Palpation: soft and no hepatosplenomegaly General: bladder normal to palpation External Female Exam: normal external appearance and normal appearance of the urethra Urethra: normal appearance of the urethra, normal palpation and no discharge Speculum Exam - Vagina: normal appearance of the vagina and normal vaginal discharge Speculum Exam - Cervix: normal appearance of the cervix and nontender Bimanual Exam- Vagina & Uterus: normal bimanual exam, uterine size normal, bladder normal to palpation, uterine shape normal, No tender, uterine mobility normal, consistency normal, normal palpation and non-tender Bimanual Exam- Adnexa, other: normal adnexae, adnexae mobile, no masses and normal Pelvic Support: normal Skin General: no rashes or lesions noted Coding Level of Care Code Off vis,est,level 4 Diagnoses 10 weeks gestation of Z3A.10 Weeks of gestation: 10 weeks Supervision of high-risk O09.90 Obesity affecting O99.210 History of miscarriage, currently O09.299 Family history of autism Z81.8 Susceptible to Varicella (non-immune), currently in first trimester Z34.90; Z28.39 History of chlamydia Z86.19 Attention deficit hyperactivity disorder (ADHD), predominantly hyperactive type F90.1 Attention deficit-hyperactivity disorder type: predominantly hyperactive Anxiety F41.9 Marijuana abuse F12.10 Assessment and Plan Assessment and Plan (1) : Status: Acute Qualifiers: Weeks of gestation: 10 weeks Qualified Code(s): Z3A.10 - 10 weeks gestation of Comment: elects NIPT with gender & carrier testing (2) Supervision of high-risk : Status: Acute Comment: , MORTEZA 03/10/26 PC Tamanna, QAMAR Borrero (3) Obesity affecting : Status: Acute Comment: HgbA1c, encourage healthy weight gain. BMI 34 (4) History of miscarriage, currently : Status: Acute (5) Family history of autism: Status: Acute Comment: son (6) Susceptible to Varicella (non-immune), currently in first trimester: Status: Acute (7) History of chlamydia: Status: Acute Comment: 08/2020 (8) ADHD: Status: Acute Qualifiers: Attention deficit-hyperactivity disorder type: predominantly hyperactive Qualified Code(s): F90.1 -Attention-deficit hyperactivity disorder, predominantly hyperactive type (9) Anxiety: Status: Acute Comment: encouraged counseling. no meds. (10) Marijuana abuse: Status: Acute Comment: recommended cessation, informed of drug tox screen initial & random Orders: Orders CBC W/Diff, Automated 08/07/25 O09.90 - Supervision of high risk , unspecified, unspecified trimester Type & Screen 08/07/25 O09.90 - Supervision of high risk , unspecified, unspecified trimester Rubella IgG 08/07/25 O09.90 - Supervision of high risk , unspecified, unspecified trimester Hepatitis C Antibody 08/07/25 O09.90 - Supervision of high risk , unspecified, unspecifiedtrimester Hepatitis B Surface Antigen 08/07/25 O09.90 - Supervision of high risk , unspecified, unspecified trimester Culture, Urine 08/07/25 O09.90 - Supervision of high risk , unspecified, unspecified trimester Syphilis Antibodies 08/07/25 O09.90 - Supervision of high risk , unspecified, unspecified trimester Chlamydia/GC KIRILL aptima 08/07/25 O09.90 - Supervision of high risk , unspecified, unspecified trimester HIV 08/07/25 O09.90 - Supervision of high risk , unspecified, unspecified trimester Urine Drug Screen 08/07/25 F12.10 - Cannabis abuse, uncomplicated, O09.90 - Supervision of high risk , unspecified, unspecified trimester Hemoglobin A1c 08/07/25 O09.90 - Supervision of high risk , unspecified, unspecified trimester, O99.210 - Obesity complicating , unspecified trimester BLANCA 08/07/25 O09.90 - Supervision of high risk , unspecified, unspecified trimester Plan Patient oriented to practice and discussed care expectations and screenings. ACOG book offered to patient. Discussed routine and specially indicated labs if needed- patient consents to testing. See problem list details for plan information. Optional screening including maternal carrier screenings, neural tube defect screening, genetic screening options including quad screen, nuchal translucency, sequential screening, and NIPT screening offered to patient and patient chose: nipt carrier with focus 08/17/25 Arabella jackson MD> Date _ Luci Arreguin MD Cosigner Signature: Date (if applicable) CC: ~ [facility]09-22-2025 Progress note Author Luci Arreguin [facility] Note Date/Time August 17, 2025 2:12pm [facility] [address] [place] [address], [address] [place] [address] OFFICE VISIT Date of Service: 08/17/25 MR#: [id number] Acct: [id number] Name: NEO BURR Rep #: [id number] : 2000 Provider: Dr. 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 Is patient in pain?: No Allergies No Known Allergies Allergy (Verified 08/17/25 13:50) Medications ?Medication ?Instructions ?Recorded ?Confirmed ?Type PNV 153-FA 400 mcg-om3 35 mg-dha tab PO 08/07/25 Hist ory 25 mg-epa 5 mg-fish oil chew tablet Last Menstrual Period: 06/05/25 Zika: Zika virus screening: Negative : No PFSH PFSH Medical History Incomplete Broken teeth Depression Marijuana use History of pancreatitis Vaginal delivery Anxiety ADHD Umbilical hernia Accidental fall from building MRSA (methicillin resistant Staphylococcus aureus) Surgical History H/O dilation and curettage Family History Mother Heart disease Maternal Grandfather Heart disease Social History adopted: No household members: children number of children: 1 service: No current occupational status: employed current occupation: [employer] pets and animals: Yes (Avoid litterbox) pets and animals: cat(s) history of recent travel: No sexually active: Yes Smoking Status: Never smoker second hand exposure: Yes alcohol intake: current alcohol intake frequency: holidays/special occasions only details: not while substance use type: marijuana well-balanced diet: daily or most days caffeine: Yes Type: carbonated beverages Number of servings: 1 eating out: 1-3 times/week during the past year weight has: remained stable what type of physical activity do you participate in: none dylan/zoroastrian: None seatbelt use: always do you feel safe at home: Yes additional social history: QAMAR Borrero History 3 Elective abortions Hx Para 1 Spontaneous abortions 1 Hx # Term Pregnancies 1 Ectopic pregnancies Hx # Pregnancies Multiple births # of living children 1 Past Pregnancies Del. Date Name GA/Weeks Outcome Route Bth Weight Infant Gen Labor Lgth Anesthesia Del Locatn Provider FOB Unknown 202207/06/20 Legend 40 live - full term 7#9oz Male epidu ral [facility] Rodríguez Borrero HPI *EST* NOB LMP 06/05, MORTEZA 03/12 Details: NEO BURR is a 24 year old who presents for New OB visit. OB Visit MORTEZA Calculator Estimated Delivery Date Method Current WG Current Estimate 03/10/26 Ultrasound #1 10w 5d Comments: HIV: Urine Culture: Sequential Screen: NIPT Screen: Estimated Due Date: 03/10/26 Expected Delivery Route/Plan Labor Preferences- CB/BF classes: [] labor support person: [] labor intervention preferences: [] pain management options preferred: [] cut cord/dad catch: [] : [] PP control planned: [] discussed possible routes of delivery and associated risks: [] special requests: [] Specific Issue/Plans Covid status: [] Flu vaccine: [] Tdap vaccine: [] Rhogam: [] LARC form signed: [] Problem list reviewed and updated with the most current plan of care details and appropriate orders placed. Relevant counseling for the gestational age provided. Continue routine care and follow up unless otherwise noted in visit notes/problem list details Initial Weight: Not Recorded Date -?-?-?-?-?-?-?-?-?-?-?-?- EGA Weight BP Urine Prot -?-?-?-?-?-?-?-?-?-?-?-?- Glucose FHR FuHt Pres Dilation -?-?-?-?-?-?-?-?-?-?-?-?- Effaced St Visit Note 08/17/25 -?-?-?-?-?-?-?-?-?-?-?-?- 10w 5d 214 lb 3 oz 126/77 -?-?-?-?-?-?-?-?-?-?-?-?- 170 -?-?-?-?-?-?-?-?-?-?-?-?- SM_ CRL cons wit h LMP Menstrual History Last Menstrual Period: 06/05/25 Reported LMP: definite Normal amount/duration: Yes Frequency in days: 28-29 On hormonal BC at conception: No hCG+: 07/04/25 Antepartum Record Genetic Screening: Congenital Heart Defect: Patient (nephew-valve issues), Neural Tube Defect: Other, Hemoglobinopathy Or Carrier: Other, Cystic Fibrosis: Other, Chromosome Abnormality: Other, Dewayne-Sachs: Other, Hemophilia: Other, Intellectual Disability/Autism: Patient (son autistic), Recurrent Loss/Stillbirth: Other, Other Structural Defect: Other, Other Genetic Disease: Other and Maternal Metabolic Disorder: Other Infection History: Live with someone with TB or Exposed to TB: No, Patient or Partner has history of Genital Herpes: No, Rash or Viral illness since last mentrual period: No, Prior GBS-Infected child: No, History of STD: Yes (chlamydia- Treated), HIV Infection: No, History of Hepatitis: No, Recent travel outside of [place]: No, Concern for hepatitis exposure: No, Varicella immune: No (Non immune) and Covid Vaccinated: No Medical History Medical History: Positive: Psychiatric (anxiety), Depression/ depression (thinks had PPD, not diagnosed), 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), Relevant family history (heart disease Mother & Maternal grandfather) and Other (obesity) and Negative: Diabetes, Hypertension, Heart disease, Auto-immune disorder, Kidney disease/UTI, Neurologic/epilepsy, Hepatitis/liver disease, Varicosities/phlebitis, Thyroid dysfunction, Trauma/domestic violence, History of blood transfusions, D (Rh) Sensitized, Pulmonary (e.g.,TB,Asthma), Seasonal allergies, Drug/latex allergies/reactions, Breast, Operations/hospitalizations, Anesthetic complications, History of abnormal pap, Uterine anomaly/oumar, Infertility and Anti-retroviral treatment ACOG First Trimester First Trimester: Desire for , Alcohol, Tobacco Cessation, Illicit/Recreational Drug/Substance Use, Intimate Partner Violence, Barriers to care, Unstable Housing, Communication Barriers, Environmental/Work Hazards, Anticipated Course of Care, Nurtrition and weight gain, Toxoplasmosis Precations, Use of Any medications, Sexual activity, Exercise, Dental Care, Sauna/Hot tub use, Seat Belt use, Childbirth classes/Hospital facilities, Travel, Indications for Ultrasound and Screening for Aneuploidy; Discussed Second Trimester Second Trimester: Signs and Symptoms of Labor, Selecting a care provider, Reproductive Life Planning & Contreception, Care Planning, Tobacco Cessation, Depression/Anxiety and Intimate Partner Violence Third Trimester Third Trimester: Pain Management Plans, Labor support person(s), Immediate Larc and Movement Monitoring; Discussed Trial of Labor after Counseling and Discussed Circumcision preference ROS Const Denies fatigue, Denies fever(s), Denies headache(s), Denies increased appetite, Denies poor appetite, Denies weight gain and Denies weight loss ENT Denies headache(s) Card Denies chest pain and Denies dyspnea Resp Denies cough and Denies dyspnea GI Reports as per HPI, Denies abdominal pain, Denies constipation, Denies nausea and Denies vomiting Reports as per HPI, Denies difficulty voiding, Denies dysuria, Denies nipple discharge, Denies urinary frequency, Denies urinary incontinence, Denies urinary hesitancy, Denies urinary urgency, Denies vaginal discharge, Denies vaginal dryness, Denies vaginal odor and Denies vaginal pruritus Skin/Breast Denies change in hair, Denies breast mass, Denies breast pain, Denies breast skin changes and Denies nipple discharge Neuro No headache(s) Endo Denies fatigue Exam Const General: cooperative, healthy appearing, comfortable, no acute distress and well developed Nutritional Appearance: average body habitus Orientation: alert HENMT Head: normal to inspection and normocephalic Neck Neck: normal visual inspection and trachea midline Thyroid: thyroid normal Resp Effort & Inspection: normal respiratory effort GI Inspection: normal to inspection and non-distended Palpation: soft and no hepatosplenomegaly General: bladder normal to palpation External Female Exam: normal external appearance and normal appearance of the urethra Urethra: normal appearance of the urethra, normal palpation and no discharge Speculum Exam - Vagina: normal appearance of the vagina and normal vaginal discharge Speculum Exam - Cervix: normal appearance of the cervix and nontender Bimanual Exam- Vagina & Uterus: normal bimanual exam, uterine size normal, bladder normal to palpation, uterine shape normal, No tender, uterine mobility normal, consistency normal, normal palpation and non-tender Bimanual Exam- Adnexa, other: normal adnexae, adnexae mobile, no masses and normal Pelvic Support: normal Skin General: no rashes or lesions noted Coding Level of Care Code Off vis,est,level 4 Diagnoses 10 weeks gestation of Z3A.10 Weeks of gestation: 10 weeks Supervision of high-risk O09.90 Obesity affecting O99.210 History of miscarriage, currently O09.299 Family history of autism Z81.8 Susceptible to Varicella (non-immune), currently in first trimester Z34.90; Z28.39 History of chlamydia Z86.19 Attention deficit hyperactivity disorder (ADHD), predominantly hyperactive type F90.1 Attention deficit-hyperactivity disorder type: predominantly hyperactive Anxiety F41.9 Marijuana abuse F12.10 Assessment and Plan Assessment and Plan (1) : Status: Acute Qualifiers: Weeks of gestation: 10 weeks Qualified Code(s): Z3A.10 - 10 weeks gestation of Comment: elects NIPT with gender & carrier testing (2) Supervision of high-risk : Status: Acute Comment: , MORTEZA 03/10/26 PC Tamanna, QAMAR Borrero (3) Obesity affecting : Status: Acute Comment: HgbA1c, encourage healthy weight gain. BMI 34 (4) History of miscarriage, currently : Status: Acute (5) Family history of autism: Status: Acute Comment: son (6) Susceptible to Varicella (non-immune), currently in first trimester: Status: Acute (7) History of chlamydia: Status: Acute Comment: 08/2020 (8) ADHD: Status: Acute Qualifiers: Attention deficit-hyperactivity disorder type: predominantly hyperactive Qualified Code(s): F90.1 - Attention-deficit hyperactivity disorder, predominantly hyperactive type (9) Anxiety: Status: Acute Comment: encouraged counseling. no meds. (10) Marijuana abuse: Status: Acute Comment: recommended cessation, informed of drug tox screen initial & random Orders: Orders CBC W/Diff, Automated 08/07/25 O09.90 - Supervision of high risk , unspecified, unspecified trimester Type & Screen 08/07/25 O09.90 - Supervision of high risk , unspecified, unspecified trimester Rubella IgG 08/07/25 O09.90 - Supervision of high risk , unspecified, unspecified trimester Hepatitis C Antibody 08/07/25 O09.90 - Supervision of high risk , unspecified, unspecified trimester Hepatitis B Surface Antigen 08/07/25 O09.90 - Supervision of high risk , unspecified, unspecified trimester Culture, Urine 08/07/25 O09.90 - Supervision of high risk , unspecified, unspecified trimester Syphilis Antibodies 08/07/25 O09.90 - Supervision of high risk , unspecified, unspecified trimester Chlamydia/GC KIRILL aptima 08/07/25 O09.90 - Supervision of high risk , unspecified, unspecified trimester HIV 08/07/25 O09.90 - Supervision of high risk , unspecified, unspecified trimester Urine Drug Screen 08/07/25 F12.10 - Cannabis abuse, uncomplicated, O09.90 - Supervision of high risk , unspecified, unspecified trimester Hemoglobin A1c 08/07/25 O09.90 - Supervision of high risk , unspecified, unspecified trimester, O99.210 - Obesity complicating , unspecified trimester BLANCA 08/07/25 O09.90 - Supervision of high risk , unspecified, unspecified trimester Plan Patient oriented to practice and discussed care expectations and screenings. ACOG book offered to patient. Discussed routine and specially indicated labs if needed- patient consents to testing. See problem list details for plan information. Optional screening including maternal carrier screenings, neural tube defect screening, genetic screening options including quad screen, nuchal translucency, sequential screening, and NIPT screening offered to patient and patient chose: nipt carrier with focus 08/17/25 [id number] <Electronically signed by Luci jackson MD> Date _ Luci Arreguin MD [facility] Signature: Date (if applicable) CC: ~ [facility] Work Phone: 1(149) 552-761809-08-2025 Radiology Diagnostic study note [facility] Imaging Services [address] [place] [address] Transvaginal w/Preg US MR#: [id number] Acct: [id number] Name: NEO BURR Rep #: [id number] : 2000 F 24 From: Jayson Putnam MD PCP: Care Physician,No Primary Status: REG CLI Study:Transvaginal w/Preg US Date of Exam: 07/31/25 Exam# [id number] Ordering Dr: Genia Diaz RESIDENT CARE SUPERVISOR RESIDENT CARE SUPERVISOR-C PROCEDURE: TRANSVAGINAL W/PREG US 07/31/2025 REASON FOR EXAM: DATING US TECHNIQUE: Procedure Code: USTVAGP Modality: US Procedure: TRANSVAGINAL W/PREG US COMPARISON: None FINDINGS: Comments: LMP: June 05, 2025. Number of Gestational Sacs: 1 Gestational Sac Shape: Normal Number of Fetuses: 1 Heart Rate: 150 beats per minute (average) Survey of Visible Anatomic Structures: Grossly unremarkable for gestational age. Yolk Sac: Present and unremarkable. Placenta: Presently not well-visualized Amniotic Fluid Volume: Subjectively normal for gestational age. Uterine Abnormalities: Maternal uterus is unremarkable. Ovaries / Adnexa: Both maternal ovaries are visualized and unremarkable. DIMENSIONS: Parameter Measurement / EGA [place] Rump Length: 14.8 mm/7 weeks and 6 days Gestational Sac: 34.7 mm/8 weeks and 5 days Yolk Sac: 3.9 mm/ ESTIMATED GESTATIONAL AGE: By Ultrasound: 8 weeks and 2 days By LMP: 8 weeks and 0 days ESTIMATED DATE OF DELIVERY: By Ultrasound: March 10, 2026 By LMP: March 12, 2026 1.4 cm x 0.9 cm x 0.6 cm hypoechoic area adjacent to the gestational sac suggestive of possible subchorionic bleed. US/Transvaginal w/Preg US IMPRESSION: Intrauterine gestation with a mean gestational age of 8 weeks and 2 days. Findings suggestive of a small subchorionic bleed adjacent to the gestational sac. Reading Location: [id number] CC: MARIELENA Diaz; No Primary Care Physician ~ Transfill Technician: Signed [facility]08-13-2025 NoteHNO ID: [id number] Author: POP TRUJILLO PA-C Service: ? Author Type: Physician Real Estate Economist Type: Progress Notes Filed: 07/08/2025 09:29 Note Text: [facility] Adriano Burr is a 24 year old female. Patient presents with: Dental Problem: Possible tooth infection bottom left x 2 days HPI Dental Pain and Swelling: - Severe dental decay with teeth broken down to the gum line. - Swelling noted in the gums. - Has a dentist appointment scheduled for next Sunday. - Reports fear of the dentist, leading to delayed care. - Acknowledges poor dental hygiene in the past; now trying to adopt healthier habits. - Denies cough. : - Currently . - Has a 5-year-old child. Review of Systems Ears/Nose/Mouth/Throat: (+) gum swelling Respiratory: (-) cough Psychiatric: (+) anxiety Objective BP 120/68 Pulse 90 Temp 36.9 ?C (98.4 ?F) Resp 18 Wt 98.6 kg (217 lb 6 oz) LMP 02/19/2025 (Exact Date) SpO2 98% Physical Exam General: No acute distress. HEENT: Gingivitis, poor dentition. CV: Regular rate and rhythm. Resp: Lungs clear to auscultation bilaterally. Abd: No abnormalities detected on auscultation. 1. Pain, dental (K08.89) 2. Poor dentition - Significant dental decay with swelling; dental appointment scheduled for next Sunday. - Start amoxicillin; discussed safety in . - Advised that initiating antibiotics is standard prior to dental evaluation in cases like this. - Encouraged patient to follow through with dental care; reassured regarding dental anxiety. - Begin the prescribed amoxicillin (safe during ) and take every dose, finishing the entire course to help reduce infection and swelling. - Attend your dental appointment next Sunday to have the broken-down teeth and gum swelling evaluated and treated. [facility] History of Present illness Narrative* Pop Trujillo PA-C - 07/08/2025 9:29 AM EDT [facility] Adriano Haynesmannie Burr is a 24 year old female. Patient presents with: Dental Problem: Possible tooth infection bottom left x 2 days HPI Dental Pain and Swelling: - Severe dental decay with teeth broken down to the gum line. - Swelling noted in the gums. - Has a dentist appointment scheduled for next Sunday. - Reports fear of the dentist, leading to delayed care. - Acknowledges poor dental hygiene in the past; now trying to adopt healthier habits. - Denies cough. : - Currently . - Has a 5-year-old child. Review of Systems Ears/Nose/Mouth/Throat: (+) gum swelling Respiratory: (-) cough Psychiatric: (+) anxiety Objective BP 120/68 Pulse 90 Temp 36.9 C (98.4 F) Resp 18 Wt 98.6 kg (217 lb 6 oz) LMP 02/19/2025 (Exact Date) SpO2 98% Physical Exam General: No acute distress. HEENT: Gingivitis, poor dentition. CV: Regular rate and rhythm. Resp: Lungs clear to auscultation bilaterally. Abd: No abnormalities detected on auscultation. 1. Pain, dental (K08.89) 2. Poor dentition - Significant dental decay with swelling; dental appointment scheduled for next Sunday. - Start amoxicillin; discussed safety in . - Advised that initiating antibiotics is standard prior to dental evaluation in cases like this. - Encouraged patient to follow through with dental care; reassured regarding dental anxiety. - Begin the prescribed amoxicillin (safe during ) and take every dose, finishing the entire course to help reduce infection and swelling. - Attend your dental appointment next Sunday to have the broken-down teeth and gum swelling evaluated and treated. [facility] Procedures documented in this encounterWilson [facility] Hospital04-17-2025 NoteHNO ID: [id number] Author: POP ARGUETA MD Service: ? Author [...] passed per rectum - tapeworm or ascaris ProceduresA[facility]04-17-2025 History of Present illness Narrative* Pop Argueta MD - 03/12/2025 5:00 PM EDT [facility] Subjective Neo Burr is [...] tapeworm or ascaris Procedures documented in this encounterWilson Memorial Hospital03-28-2025 Radiology Diagnostic study note [facility] Imaging Services [address] [place], [place] [id number] Tibia & Fibula 2 Views MR#: [id number] Acct: [id number] Name: NEO BURR Rep #: [id number] : 2000 F 24 From: Gonzalez Duran MD PCP: Care Physician,No Primary Status: REG ER Study:Tibia & Fibula 2 Views Date of Exam: 02/20/25 Exam# [id number] Ordering Dr: Amaya Coker DO EXAM: Diagnostic tibia fibula two-view x-ray CLINICAL HISTORY: Pain TECHNIQUE: AP and lateral two views of the left tibia and fibula FINDINGS: No fracture. Suggestion of diffuse pretibial soft tissue swelling on the lateral view. RAD/Tibia & Fibula 2 Views IMPRESSION: No fracture. Suggestion of diffuse pretibial soft tissue swelling on the lateral view. Reading Location: [facility] CC: Dr. Jess Coker DO; No Primary Care Physician ~ Transfill Technician: Signed [facility]03-28-2025 Radiology Diagnostic study note [facility] Imaging Services [address] [place] [place], [place] [id number] Ankle min 3 Views MR#: [id number] Acct: [id number] Name: Leanna BURRSONIA Pelletier Rep #: [id number] : 2000 F 24 From: Gonzalez Duran MD PCP: Care Physician,No Primary Status: REG ER Study:Ankle min 3 Views Date of Exam: Exam# [id number] Ordering Dr: Amaya Coker DO PROCEDURE: ANKLE MIN 3 VIEWS 02/20/2025 REASON FOR EXAM: PAIN TECHNIQUE: 3 views of the left ankle COMPARISON: 07/10/2019 FINDINGS: No fracture, dislocation or joint effusion. Appearance of lateral ankle soft tissue swelling. Jointspaces appear within limits. RAD/Ankle min 3 Views IMPRESSION: No fracture, dislocation or joint effusion. Appearance of lateral ankle soft tissue swelling. Reading Location: [id number] CC: Dr. Jess Coker, DO; No Primary Care Physician ~ Transfill Technician: Signed [facility]01-30-2025 Instructions* Patient Instructions* Hermelinda Medina APRN.BASKET WEAVER - 12/25/2024 4:49 PM EST 1. Strep [...] or inability to swallow. documented in this encounterWilson Memorial Hospital01-30-2025 NoteHNO ID: [id number] Author: HERMELINDA MEDINA APRN.BASKET WEAVER Service: ? Author Type: Nurse Practitioner Type: [...] A MOLECULAR (POC) Debra Stanley TEACHING PROVIDER (Physician/PA/COMMERCIAL RELATIONSHIP MANAGER) NOTE OF PERSONAL INVOLVEMENT IN CARE: I have personally seen and examined the patient and performed the medical decision-making components. I have reviewed the Advanced Practice Registered Nurse (COMMERCIAL RELATIONSHIP MANAGER) Student's documentation and verified the findings in the note as written. Any additions or changes are noted in bold/italics. Signature: Hermelinda Medina Date: 12/25/2024 Time: 4:52 [facility]01-30-2025 History of Present illness Narrative* Hermelinda Medina APRN.[facility] - 12/25/2024 4:42 PM EST Subjective Pt is a 24 y/o female [...] mL suspension Take 4 tsp twice daily for10 days (Patient not taking: Reported on 06/08/2018 [...] A MOLECULAR (POC) Debra Stanley TEACHING PROVIDER (Physician/PA/COMMERCIAL RELATIONSHIP MANAGER) NOTE OF PERSONAL INVOLVEMENT IN CARE: I have personally seen and examined the patient and performed the medical decision-making components. I have reviewed the Advanced Practice Registered Nurse (COMMERCIAL RELATIONSHIP MANAGER) Student's documentation and verified the findings in the note as written. Any additions or changes are noted in bold/italics. Signature: Hermelinda Medina Date: 12/25/2024 Time: 4:52 PM documented in this encounterWilson Memorial Hospital01-24-2024 NotePap Smear Specimen AdequacyJanuary 2023 11:59pmComment.Satisfactory for evaluation. No endocervical component is identified.[facility] INTERFACED A#[id number] State East HospitalComment on above:Satisfactory for evaluation. No endocervical component is identified.10-01-2023 History of Present illness Narrative* Jayson Powers APRN.BASKET WEAVER - 10/01/2023 5:46 PM EST Images from the original note were not included. Subjective HPI Nontoxic-appearing female presents urgent care chief complaint dental pain. Duration of symptoms 2 days. Associated symptoms facial swelling redness. Does develop today. Presents today for evaluation. Concerned about possible dental infection. Use of Motrin for pain management good success. Historyof dental infections. Denies any facial trauma. Denies any fever body aches chills nausea vomiting abdominal pain headache cough sore throat difficulty and excretion decreased range of motion of neckor jaw trismus pain of floor mouth. Past [...] mL suspension Take 4 tsp twice daily for10 days (Patient not taking: Reported on 06/08/2018 [...] remote redness. Nose: Nose normal. Mouth/Throat: Lips: [place]. Dentition: Abnormal dentition. Dental tenderness and dental [...] Treat with Augmentin at today's visit. Red flagsfor prompt ER evaluation discussed. Follow-up with dentist [...] of care. This note was generated using THEMA software. It may contain errors in wording, punctuation, or spelling. Jayson Powers APRN.GRACIE documented in this encounterWilson Memorial Hospital06-30-2023 History and physical note Author Luci Arreguin [facility] May 25, 2023 10:00am Note Date/Time May 25, 2023 10:0 0am [facility] Medical Records Department [address] [place] [address] History & Physical Exam 05/25/23 0959 MR#: [id number] Acct: [id number] Name: LENONEO Pelletier Rep #:[id number] : 2000 22 From: Luci jones MD PCP: Care Physician,No Primary Status :REG [facility] Location: [place] [address] HPI - General HPI Narrative NEO BURR, is a 22 F who presents for suction d and c with incomplete miscarriage, bleeding and no FHT seen x 2 ultrasound. [facility] Medical History (Updated 05/25/23 @ 10:00 by [...] seatbelt use: sometimes additional social history: [place]- BF unemployed ([facility]) ROS Constitutional Constitutional: Reports systems reviewed and [...] 74.5 H, Lymph % (Auto) 16.8 L, [place] % (Auto) 7.1, Eos % (Auto) 0.9, [...] Arreguin MD; No Primary Care Physician~ Signed [facility] Work Phone: Discharge summary Author Luci Arreguin [facility] May 25, 2023 10:11am Note Date/Time May 25, 2023 10:1 1am [facility] Medical Records Department [address] [place] [address] Instructions for Home/Discharge Instructions 05/25/23 1011 MR#: [id number] Acct: [id number] Name: NEO BURR Rep #:[id number] : 2000 22 From: Luci jones MD PCP: Care Physician,No Primary Status :REG [facility] Discharge Instructions Procedure D&C Diet Discharge Diet: [...] Up With: Luci Arreguin MD When: Call [phone] to schedule appointment. Test Results: Test results from this visit will be discussed in further detail at your follow- up appointment, if applicable. Discharge Plan Admission Attending Provider: Luci Arreguin Primary Care Provider: Care Physician,Althea Primary Discharge Orders/Prescriptions Prescriptions: No Action NK Referrals / Follow Up: Care Physician,No Primary [Primary Care Provider] - Disposition Disposition (needs filled in before D/C Order can be placed): Home, Self Care 05/25/23 1011<Electronically signed by Luci Arreguin MD>Luci Arreguin MD CC: No Primary Care Physician ~ Signed [facility] Work Phone: Evaluation note* Diagnosis Onset Date Resolution Status Incomplete acute [facility] Work Phone: Evaluation note* Diagnosis Onset Date Resolution Status Incomplete acute Incomplete acute Contraception management acu te Incomplete acute Possible exposure to STD non eactive Postop check noneactive [facility] Work Phone: Evaluation note* Diagnosis Dental infection- Primary Acute apical periodontitis of pulpal origin documented in this encounter [facility] note* Diagnosis Onset Date Resolution Status Possible exposure to STD non eactive Vulval lesion noneactive [facility] Work Phone: Evaluation note* Diagnosis Strep pharyngitis- Primary Streptococcal sore throat Sore throat Acute pharyngitis documented in this encounter [facility] noteNo assessment information availableWOhio State Health System Work Phone: Evaluation note* Diagnosis Worms in stool- Primary Helminth infection, unspecified documented in this encounter [facility] note* Diagnosis Pain, dental- Primary Unspecified disorder of the teeth and supporting structures documented in this encounter [facility] note* Diagnosis Onset Date Resolution Status Admit Date ADHD acute July 1:46pm Anxiety acute July 1:46pm Family history of autism acute August 17, 2025 1:46pm History of chlamydia acute Jul 1:46pm History of miscarriage, currently acute July 1:46pm Marijuana abuse acute August 17, 2025 1:46pm Obesity affecting acute August 17, 2025 1:46pm acute July 1:46pm Supervision of high-risk acute August 17, 2025 1:46pm Susceptible to Varicella (non-immune), currently in first trimester acute Jul 1:46pm [facility] Work Phone: Reason for referral (narrative)No reason for referral information availableWOhio State Health System Work Phone: Summary Purpose Family History No Family History Records Found Relationship Condition Age at Onset Recorded Date/T gene mother Cardiac disease Unknown Not Specified Cardiac disease Unknown Advance Directives No Advanced Directives Records Found Advance Directive Response Recorded Date/ Time Living Will No May 23, 2023 8:16am Power of Digital Engineer No May 23 8:16am Advance Directive Response Recorded Date/ Time Living Will No May 23, 2023 7:16am Power of Digital Engineer No May 23 7:16am Advance Directive Response Recorded Date/ Time Living Will No February 20, 2025 7:58pm Do you have a Healthcare Power of Digital Engineer? No February 20, 2025 7:58pm Chief Complaint [...] Vulval lesion Chief Complaint Admit Date L [facility] February 20, 2025 7:3 8pm Chief Complaint Admit Date INT LAB ORDER July 06, 2025 12 :49pm Chief Complaint Admit Date INT LAB ORDER July 06, 2025 12 :49pm [facility] July 24, 2025 2: 49pm Chief Complaint Admit Date INT LAB ORDER July 06, 2025 12 :49pm [facility] July 24, 2025 2: 49pm DATING Amenorrhea, unspecified July 31, 2025 3:45pm Chief Complaint Admit Date INT LAB ORDER July 06, 2025 12 :49pm [facility] July 24, 2025 2: 49pm DATING Amenorrhea, unspecified July 31, 2025 3:45pm *EST* NOB LMP 06/05, MORTEZA 03/12July 282024 1:46pm INT LAB ORDERS August 17, 2025 2:18pm Reason for Visit Admit Date ADHD August 17, 2025 1:46pm Anxiety August 17, 2025 1:46pm Family history of autism August 17, 2025 1:46pm History of chlamydia August 17 1:46pm History of miscarriage, currently pregna nt August 17, 2025 1:46pm Marijuana abuse August 17, 2025 1:46pm Obesity affecting August 172024 1:46pm August 17, 2025 1:46pm Supervision of high-risk Cipriano donald 2024 1:46pm Susceptible to Varicella (no n-immune), currently in first trimester August 17, 2025 1:46pm Additional Source Comments INFORMATION SOURCE (unrecogn ized section and content) DATE CREATED AUTHOR 05/17/2018 [facility] ([place]) DATE CREATED AUTHOR AUTHOR'S ORGANIZ ATION 07/09/2025 [facility] DATE CREATED AUTHOR AUTHOR'S ORGANIZ ATION 09/11/2025 [facility] Care Teams (unrecognized sec tion and [...] Provider, Refer ring Provider Active Genia Diaz RESIDENT CARE SUPERVISOR, RESIDENT CARE SUPERVISOR-C Attending Provider Active Team Status: Inactive Member Role Status Dates No Primary Care Physician Primary Care Provider Active Genia Diaz RESIDENT CARE SUPERVISOR, RESIDENT CARE SUPERVISOR-C Attending Provider, Referring Provider Active Gas Meter Repairer Relationship Specialty Start Date End Date Sirena Mcneil MD [address] [place] [address] PCP - General Family Medicine 06/07/15 Gas Meter Repairer Relationship Specialty Start Date End Date Sirena Mcneil MD [address] [place] [address] PCP - General Family Medicine 06/07/15 Team Status: Active Member Role Status Dates No Primary Care Physician Primary Care Provider Active Team Status: Inactive Member Role Status Dates No Primary Care Physician Primary Care Provider Active Start: February 20, 2025 End: February 20, 2025 Dr. Jess Coker , DO Emergency Provider Active S tart: February 20, 2025 End: February 20, 2025 Gas Meter Repairer Relationship Specialty Start Date End Date Sirena Mcneil MD [address] [facility], [place] [id number] PCP - General Family Medicine 06/07/15 Gas Meter Repairer Relationship Specialty Start Date End Date Sirena Mcneil MD [address] [facility], [place] [id number] PCP - General Family Medicine 06/07/15 Team Status: Active Member Role/Relationship Status Dates No Primary Care Physician Primary Care Provider Active Team Status: Inactive Member Role/Relationship Status Dates No Primary Care Physician Primary Care Provider Active Start: July 06, 2025 End: July 06, 2025 Genia Diaz RESIDENT CARE SUPERVISOR, RESIDENT CARE SUPERVISOR-C Attending Provider Active Start: July 06, 2025 End: July 06, 2025 Genia Diaz RESIDENT CARE SUPERVISOR, RESIDENT CARE SUPERVISOR-C Referring Provider Active Start: July 06, 2025 End: July 06, 2025 Team Status: Inactive Member Role/Relationship Status Dates No Primary Care Physician Primary Care Provider Active Start: July 24, 2025 End: July 24, 2025 Genia Diaz RESIDENT CARE SUPERVISOR, RESIDENT CARE SUPERVISOR-C Attending Provider Active Start: July 24, 2025 End: July 24, 2025 Genia Diaz RESIDENT CARE SUPERVISOR, RESIDENT CARE SUPERVISOR-C Referring Provider Active Start: July 24, 2025 End: July 24, 2025 Team Status: Inactive Member Role/Relationship Status Dates No Primary Care Physician Primary Care Provider Active Start: July 31, 2025 End: July 31, 2025 Genia Diaz RESIDENT CARE SUPERVISOR, RESIDENT CARE SUPERVISOR-C Attending Provider Active Start: July 31, 2025 End: July 31, 2025 Genia Motas RESIDENT CARE SUPERVISOR, RESIDENT CARE SUPERVISOR-C Referring Provider Active Start: July 31, 2025 End: July 31, 2025 Team Status: Active Member Role/Relationship Status Dates No Primary Care Physician Primary care physician Activ e Team Status: Inactive Member Role/Relationship Status Dates No Primary Care Physician Primary care physician Activ e Start: July 06, 2025 End: July 06, 2025 Genia Emily RESIDENT CARE SUPERVISOR, RESIDENT CARE SUPERVISOR-C Attending physician Active Start: July 06, 2025 End: July 06, 2025 Geniakenny Motas RESIDENT CARE SUPERVISOR, RESIDENT CARE SUPERVISOR-C Referring Provider Active Start: July 06, 2025 End: July 06, 2025 Team Status: Inactive Member Role/Relationship Status Dates No Primary Care Physician Primary care physician Activ e Start: July 24, 2025 End: July 24, 2025 Genia Ducor RESIDENT CARE SUPERVISOR, RESIDENT CARE SUPERVISOR-C Attending physician Active Start: July 24, 2025 End: July 24, 2025 Genia Ducor RESIDENT CARE SUPERVISOR, RESIDENT CARE SUPERVISOR-C Referring Provider Active Start: July 24, 2025 End: July 24, 2025 Team Status: Inactive Member Role/Relationship Status Dates No Primary Care Physician Primary care physician Activ e Start: July 31, 2025 End: July 31, 2025 Genia Ducor RESIDENT CARE SUPERVISOR, RESIDENT CARE SUPERVISOR-C Attending physician Active Start: July 31, 2025 End: July 31, 2025 Genia Emily RESIDENT CARE SUPERVISOR, RESIDENT CARE SUPERVISOR-C Referring Provider Active Start: July 31, 2025 End: July 31, 2025 Team Status: Inactive Member Role/Relationship Status Dates No Primary Care Physician Primary care physician Activ e Start: August 17, 2025 End: August 17, 2025 No Primary Care Physician Referring Provider Active Start: August 17, 2025 End: August 17, 2025 Dr. Luci Arreguin MD Attending physician Active Start: August 17, 2025 End: August 17, 2025 Team Status: Inactive Member Role/Relationship Status Dates No Primary Care Physician Primary care physician Activ e Start: August 17, 2025 End: August 17, 2025 Dr. Luci Arreguin MD Attending physician Active Start: August 17, 2025 End: August 17, 2025 Dr. Luci Arreguin MD Referring Provider Active Start: August 17, 2025 End: August 17, 2025 Source Comments (unrecognize d section and content) In the event this informatio n is protected by the Federal Confidentiality of Alcohol and Drug Abuse Patient Records regulations: The Federal rules restrict any use of the information to criminally investigate or prosecute any alcohol or drug abuse patient.[facility] HospitalIn the event this information is protected by the Federal Confidentiality of Alcohol and Drug Abuse Patient Records regulations: The Federal rules restrict any use of the information to criminally investigate or prosecute any alcohol or drug abuse patient.[facility] HospitalIn the event this information is protected by the Federal Confidentiality of Alcohol and Drug Abuse Patient Records regulations: The Federal rules restrict any use of the information to criminally investigate or prosecute any alcohol or drug abuse patient.[facility] HospitalIn the event this information is protected by the Federal Confidentiality of Alcohol and Drug Abuse Patient Records regulations: The Federal rules restrict any use of the information to criminally investigate or prosecute any alcohol or drug abuse patient.[facility] Reason for Visit (unrecogniz ed section and content) Reason Comments Dental Problem Possible infection l eft side of mouth, swollen face x 2 days Reason Comments Sore Throat X2 days, fever, body aches Reason Comments Diarrhea Pt states she passed a possible worm yesterday after a BM and also passed another one today. X 1 day Reason Comments Dental Problem Possible tooth infec tion bottom left x 2 days Goals (unrecognized section and content) Type Care Experience svdLabor Preferences - declined CB classeslabor support person: adair and mom- Bridgetpain management options preferred: epidural cut cord/dad catch: yesbreastfeeding: yesPP control planned: nexplanondiscussed possible routes of delivery and associated risks: discussed possible delivery modalities and possible indications for each including R/B/A of , VAVD, and CS. questions answered.special requests: noneDiscussed induction of labor. Patient 3cm today. Sister's birthday is on Sunday so interested in IOL on Sunday night. Risks, benefits, indications, and alternative for induction discussed with patient. Plan for IOL with pitocin on 07/04 at 1900. Care Experience Labor Preferences-CB /BF classes: []labor support person: []labor intervention preferences: []pain management options preferred: []cut cord/dad catch: []: []PP control planned: []discussed possible routes of delivery and associated risks: []special requests: [] FOR RECORDS PERTAINING TO PATIENTS WHO ARE [...] BE BASED ON THE PRIMARY CLINICAL RECORDS. [employer]. provides no warranty or guarantee of the accuracy or completeness of information in this document.
[2025-09-18 16:30] LABS: AST(SGOT) 18 U/L (<=31); Alanine Aminotransfer ALT/SGPT 25 U/L (<=34); Albumin, Serum 3.9 g/dL (3.5-5.0); Alkaline Phosphatase 48 U/L (35-104); Amylase 46 U/L (28-100); Anion Gap 9 (5-15); BUN 4 mg/dL (4-19); BUN/Creat Ratio 10.7 RATIO (10-20); Calcium,Total 9.2 mg/dL (7.6-11.0); Carbon Dioxide 22.1 mmol/L (21.0-32.0); Chloride 105 mmol/L (98-108); Globulin 2.8 g/dL (2.2-4.2); Glucose 87 mg/dL (70-99); Lipase 16 U/L (13-75); Potassium 3.6 mmol/L (3.3-5.1)
== END | disposition home or self-care (01) ==
PROVIDERS: Visit Provider Obstetrics & Gynecology
DX: Z87.19 Personal history of other diseases of the digestive system (principal)
CPT/HCPCS: 36415; 80053; 82150; 83690